=== PATIENT | female | born 1965 | race Caucasian/White ===

== ENCOUNTER 2019-12-24 11:30 | Outpatient (REF) | payer OTHER, SELFPAY | END 2019-12-24 11:31 | disposition home or self-care (01) | LOC: HO.LNP 11:30 | PROVIDERS: Visit Provider Nurse Practitioner Family | DX: Z20.828 Contact with and (suspected) exposure to other viral communicable diseases (principal) | CPT/HCPCS: C9803; U0003 ==

== ENCOUNTER 2020-01-07 03:39 | Inpatient (IN) | payer OTHER, SELFPAY ==
[2020-01-07] VITALS (10 sets, daily range): BP systolic 132–154; BP diastolic 73–81; PULSE 73–94; RESP 16–18; TEMP 36.8–37.5; O2SAT 96–100; BMI 20.9; BMI 22.3
--- NOTE | 2020-01-07 04:01 | ECG_ITS ---
Test Reason : CHEST PAIN Blood Pressure : / mmHG Vent. Rate : 094 BPM Atrial Rate : 094 BPM P-R Int : 154 ms QRS Dur : 066 ms QT Int : 346 ms P-R-T Axes : 060 079 050 degrees QTc Int : 432 ms Sinus rhythm with Premature supraventricular complexes Otherwise normal ECG When compared with ECG of 02-JUL-2018 06:03, Premature supraventricular complexes are now Present Referred By: Bethanie Stanley Electronically Signed By:ARDEN MCGREGOR MD
--- NOTE | 2020-01-07 04:19 | PC.NURSE ---
Pt coming in from home, CAOx4, speaking full sentences. 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 Pt reports a recent diagnosis of mold poisoning 1-2 weeks ago by an MD at a walkout clinic. Pt had been taking Amoxicillin but was recently changed to Doxycycline. Pt reports taking less than prescribed for the Doxycycline by accident. Pt returns to the ED tonight due to persistent symptoms of a DOWLING, confusion, palpitations and her innards spasming. Pt also reports kidney failure recently due to mold poisoning, states she was evaluated at a walk out clinic for her symptoms r/t kidney failure and mold poisoning. Pt denies sick contacts, states she has not been leaving her home. Pt most recently tested for Covid on 01/01 and was negative. O2 sat 98% RA, pt speaking full sentences, reporting SOB. Awaiting primary MD cedrick.
--- NOTE | 2020-01-07 04:21 | ED_ITS ---
HPI - Chest Pain General Chief Complaint: Chest Pain Stated Complaint: Multiple Complaints Time Seen by Provider: 01/07/20 04:21 Source: patient Mode of arrival: ambulatory Limitations: no limitations History of Present Illness HPI narrative: This is a 54-year-old female who presents today with persistent chest pain that is nonradiating but is associated with a productive cough of mucus like substance and she states has progressed to the point that now there is some blood streaking in the mucus. She is currently under the care of her primary care provider who has placed her on nystatin swish and swallow routine for oral thrush that she states has not really helped. Otherwise, she denies any fevers, chills, nausea, vomiting and denies any hematemesis or melena. She states that she used to be on poison this drugs that she has since stopped. Related Data Home Medications Medication Instructions Recorded Confirmed albuterol sulfate 90 mcg/actuation INHALATION 12/24/19 aerosol inhaler gozbbdnlwj-chnetivamgsun-tghcmtjz 1 cap PO TID 12/24/19 50 mg-325 mg-40 mg capsule fluticasone propionate 50 INTRANASAL 12/24/19 mcg/actuation nasal spray,suspension Previous Rx's Medication Instructions Recorded carisoprodol 350 mg tablet 350 mg PO TID PRN 30 Days #90 tab 12/17/19 doxycycline hyclate 100 mg capsule 100 mg PO BID 10 Days #20 cap 01/01/20 Allergies Allergy/AdvReac Type Severity Reaction Status Date / Time ceftriaxone [From ROCEPHIN] Allergy Unknown UNKNOWN Unverified 01/01/20 12:04 metoclopramide [Reglan] Allergy Unknown anaphylaxis Verified 01/01/20 12:04 tramadol [TRAMADOL] Allergy Unknown UNKNOWN, Unverified 01/01/20 12:04 seizure, seizure Review of Systems Review of Systems: Pertinent positives and negatives as stated in HPI and 10 point review systems is otherwise negative. [facility] Past Medical History Source: nursing notes reviewed Social History Social History Advance Directives: No Advance Directives Information Provided: No Physical Exam Vital Signs: Vital Signs: Last Vital Signs Temp 99.1 F 01/07/20 03:43 Pulse 84 01/07/20 05:57 Resp 16 01/07/20 05:57 BP 140/79 H 01/07/20 05:57 Pulse Ox 98 01/07/20 05:57 Body Mass Index 20.9 VITAL SIGNS: Reviewed. GENERAL: Well developed, well nourished, in no acute distress. 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 No adventitious sounds or accessory muscle use. SpO2<98> CARDIOVASCULAR: Regular rate and rhythm without noted murmurs, no JVD or lower extremity edema. ABDOMEN: Soft, non-tender, non-distended with bowel sounds. No rigidity. No guarding. No palpable masses or hernias noted MUSCULOSKELETAL: No tenderness, deformities, or effusions noted on gross inspection. EXTREMITIES: No cyanosis, clubbing or edema. SKIN: Inspection of the skin reveals no rashes, ulcerations, jaundice, pallor, or petechiae. NEUROLOGIC: Alert and oriented x 4. Strength and sensation to light touch were grossly intact x 4. Course Course Course Narrative: This is a 54-year-old female with history and clinical presentation concerning for possible pneumonia, bronchitis, mina esophagitis, and less likely PE/cardiac ischemia. 12/23: On review of primary care providers note from 12/23 there is mention the patient is currently undergoing evaluation by specialist in [place] for ruling out lupus and that patient stated that that time she had sustained a 40 lb weight loss since February with increasing night sweats and feeling weak. At this visit patient was started on nystatin, Augmentin and initial COVID-19 testing was completed at that time and was negative. 12/31: Visit note incomplete Reevaluation(s) Reevaluation #1: Suspect infection so will proceed with blood cultures, lactic acid, sepsis fluids, as well as empiric antibiotics. Time: 06:55 Reevaluation #2: Patient signed out to Dr Ness. Time: 07:16 MDM - Chest Pain Lab Data Result diagrams: 01/07/20 05:15 01/07/20 05:15 Labs: Lab Results 01/07/20 01/07/2020 Range/Units 05:15 05:15 05:15 WBC 14.2 H (4.8-10.8) X10*3/uL RBC 2.96 L (4.20-5.50) X10*6/uL Hgb 8.1 L (12.0-16.0) g/dl Hct 26.1 L (37-47) % MCV 88.2 (80-98) fL MCH 27.4 (27.0-33.0) pg MCHC 31.0 (31.0-35.0) g/dl RDW 12.4 (11.0-16.0) % Plt Count 588 H (160-400) X10*3/uL MPV 9.5 (9.4-12.3) fL Immature Gran % (Auto) 0.8 H (0.0-0.4) % Neut % (Auto) 75.5 H (45-73) % Lymph % (Auto) 9.9 L (20-40) % [place] % (Auto) 11.2 H (2-11) % Eos % (Auto) 2.3 (0-4) % Baso % (Auto) 0.3 (0-2) % Lymph # (Auto) 1.4 (1.2-4.9) X10*3/uL [place] # (Auto) 1.6 H (0.1-1.2) X10*3/uL Eos # (Auto) 0.3 (0.0-0.4) X10*3/uL Baso # (Auto) 0.0 (0.0-0.2) X10*3/uL Abs Immat Gran (auto) 0.11 H (0.00-0.03) X10*3/uL Absolute Neuts (auto) 10.7 H (2.0-8.3) X10*3/uL Absolute Nucleated RBC 0.000 (0.0-0.012) X10*3/uL Nucleated RBC % (auto) 0.0 (0.0-0.2) /100WBC Smear Tech's Comments VERIFIED D-Dimer NG/ML Sodium 136 (135-145) mmol/L Potassium 5.1 (3.3-5.1) mmol/l Chloride 107 (96-108) mmol/L Carbon Dioxide 17 L (22-29) mmol/L Anion Gap 17 (12-20) BUN 77 H (9-16) mg/dL Creatinine 5.32 H* (0.5-1.4) mg/dL Estim Creat Clear Calc 11.6 Estimated GFR 8 Random Glucose 107 (60-115) mg/dL Calcium 8.1 L (8.4-10.2) mg/dL Total Bilirubin 0.3 (0.0-1.0) mg/dL AST 19 (5-31) U/L ALT 19 (0-31) U/L Alkaline Phosphatase 194 H (39-117) U/L Troponin I High Sens 17.9 H (<3.5-17.0) ng/L Total Protein 6.8 (6.5-8.0) g/dL Albumin 3.0 L (3.5-5.0) g/dL Urine Color Urine Appearance Urine pH (5.0-8.0) Ur Specific [place] (1.005-1.025) Urine Protein (NEG-TRACE) MG/DL Urine Glucose (UA) (NEG) MG/DL Urine Ketones (NEG) MG/DL Urine Blood (NEG) Urine Nitrite (NEG) Ur Leukocyte Esterase (NEG) Urine RBC (0) /HPF Urine WBC (0-4) /HPF Ur Squamous Epith Cells /LPF Urine Bacteria /LPF Granular Casts /LPF Urine Mucus /LPF 01/07/20 01/07/20 Range/Units 05:15 05:15 WBC (4.8-10.8) X10*3/uL RBC (4.20-5.50) X10*6/uL Hgb (12.0-16.0) g/dl Hct (37-47) % MCV (80-98) fL MCH (27.0-33.0) pg MCHC (31.0-35.0) g/dl RDW (11.0-16.0) % Plt Count (160-400) X10*3/uL MPV (9.4-12.3) fL Immature Gran % (Auto) (0.0-0.4) % Neut % (Auto) (45-73) % Lymph % (Auto) (20-40) % [place] % (Auto) (2-11) % Eos % (Auto) (0-4) % Baso % (Auto) (0-2) % Lymph # (Auto) (1.2-4.9) X10*3/uL [place] # (Auto) (0.1-1.2) X10*3/uL Eos # (Auto) (0.0-0.4) X10*3/uL Baso # (Auto) (0.0-0.2) X10*3/uL Abs Immat Gran (auto) (0.00-0.03) X10*3/uL Absolute Neuts (auto) (2.0-8.3) X10*3/uL Absolute Nucleated RBC (0.0-0.012) X10*3/uL Nucleated RBC % (auto) (0.0-0.2) /100WBC Smear Tech's Comments D-Dimer 838 NG/ML Sodium (135-145) mmol/L Potassium (3.3-5.1) mmol/l Chloride (96-108) mmol/L Carbon Dioxide (22-29) mmol/L Anion Gap (12-20) BUN (9-16) mg/dL Creatinine (0.5-1.4) mg/dL Estim Creat Clear Calc Estimated GFR Random Glucose (60-115) mg/dL Calcium (8.4-10.2) mg/dL Total Bilirubin (0.0-1.0) mg/dL AST (5-31) U/L ALT (0-31) U/L Alkaline Phosphatase (39-117) U/L Troponin I High Sens (<3.5-17.0) ng/L Total Protein (6.5-8.0) g/dL Albumin (3.5-5.0) g/dL Urine Color STRAW Urine Appearance CLEAR Urine pH 5.5 (5.0-8.0) Ur Specific [place] 1.020 (1.005-1.025) Urine Protein 2+ H (NEG-TRACE) MG/DL Urine Glucose (UA) NEG (NEG) MG/DL Urine Ketones NEG (NEG) MG/DL Urine Blood 3+ H (NEG) Urine Nitrite NEG (NEG) Ur Leukocyte Esterase NEG (NEG) Urine RBC 50-75 H (0) /HPF Urine WBC 10-14 H (0-4) /HPF Ur Squamous Epith Cells 2+ /LPF Urine Bacteria 1+ /LPF Granular Casts 0-2 /LPF Urine Mucus 1+ /LPF ECG Data ECG #1: Attestation: I personally reviewed and interpreted this ECG as follows: Interpretation: Normal sinus rhythm, HR- 94, no evidence of acute ischemia, VT/QRS/ QTC are within normal limits. Discharge Plan Discharge Clinical Impression: YESSICA (acute kidney injury), Severe sepsis Anemia Qualifiers: Anemia type: unspecified type Qualified Code(s): D64.9 - Anemia, unspecified Prescriptions: No Action carisoprodol 350 mg tablet 350 mg PO TID PRN (Reason: muscle pain) 30 Days Qty: 90 RF: 0 doxycycline hyclate 100 mg capsule 100 mg PO BID 10 Days Qty: 20 RF: 0 jiwctkicgq-yektnhzlovkoc-zfsf 50-325-40 mg capsule 1 cap PO TID RF: 0 fluticasone propionate 50 mcg/actuation spray,suspension 1 spray intranasal BID RF: 0 albuterol sulfate 90 mcg/actuation HFA aerosol inhaler 2 puff inhalation Q6H PRN (Reason: Wheezing) RF: 0
--- NOTE | 2020-01-07 04:44 | XR_ITS ---
EXAMINATION: CHEST 1 VIEW CLINICAL INFORMATION: Chest pain. COMPARISON: 07/02/2018. TECHNIQUE: An AP view of the chest is provided. FINDINGS: The cardiac silhouette is not enlarged. The mediastinal and hilar contours are unremarkable. There are neither pleural effusions nor pneumothoraces. There are no consolidations. The osseous structures are stable. XR/XR chest 1V IMPRESSION: No evidence for acute disease.
--- NOTE | 2020-01-07 05:16 | PC.NURSE ---
Labs and UA obtained and sent. Pt ambulating to/from the bathroom with a davis/steady gait.
[2020-01-07 05:22] LABS: Basophils Percent Auto 0.3 % (0-2); Eosinophils Absolute Auto 0.3 X10*3/uL (0.0-0.4); Eosinophils Percent Auto 2.3 % (0-4); Hematocrit 26.1 % (37-47); Hemoglobin 8.1 g/dl (12.0-16.0); Imm Gran Abs Auto 0.11 X10*3/uL (0.00-0.03); Imm Gran Pct Auto 0.8 % (0.0-0.4); Lymphocytes Absolute Auto 1.4 X10*3/uL (1.2-4.9); Lymphocytes Percent Auto 9.9 % (20-40); MANUAL DIFF FLAG SCAN; Mean Corpuscular Hemoglobin 27.4 pg (27.0-33.0); Mean Corpuscular Volume 88.2 fL (80-98); Mean Platelet Volume 9.5 fL (9.4-12.3); Monocytes Absolute Auto 1.6 X10*3/uL (0.1-1.2); Monocytes Percent Auto 11.2 % (2-11); Neutrophils Absolute Auto 10.7 X10*3/uL (2.0-8.3); Neutrophils Percent Auto 75.5 % (45-73); Platelet Count 588 X10*3/uL (160-400); Red Blood Count 2.96 X10*6/uL (4.20-5.50); Red Cell Distribution Width 12.4 % (11.0-16.0); SCAN SMEAR FLAG 1; White Blood Count 14.2 X10*3/uL (4.8-10.8)
--- NOTE | 2020-01-07 05:30 | PC.NURSE ---
XRay at bedside.
[2020-01-07 05:32] LABS: Glucose Urine UA NEG (NEG); Leukocyte Esterase Urine NEG (NEG); Nitrite Urine NEG (NEG); PH 5.5 (5.0-8.0); Urine Blood 3+ (NEG); Urine Ketones NEG (NEG); Urine Protein 2+ MG/DL (NEG-TRACE)
[2020-01-07 05:33] LABS: Appearance Urine CLEAR; Color Urine STRAW
[2020-01-07 05:35] LABS: D Dimer 838 NG/ML
[2020-01-07 05:40] LABS: Bacteria Urine 1+ /LPF; Mucus Urine 1+ /LPF; RBC Urine 50-75 /HPF (0); Squamous Epithelial Cell Urine 2+ /LPF
[2020-01-07 05:41] LABS: Granular Casts Urine 0-2 /LPF
[2020-01-07 05:46] LABS: SLIDE REVIEW VERIFIED
[2020-01-07 05:59] LABS: Troponin-I High Sensitivity 17.9 ng/L (<3.5-17.0)
--- NOTE | 2020-01-07 06:02 | PC.NURSE ---
IV established, pt aware of plan for CT. VSS. Awaiting CT.
[2020-01-07 06:10] LABS: Alanine Aminotransferase 19 U/L (0-31); Alkaline Phosphatase 194 U/L (39-117); Anion Gap 17 (12-20); Aspartate Amino Transferase 19 U/L (5-31); Bilirubin Total 0.3 mg/dL (0.0-1.0); Blood Urea Nitrogen 77 mg/dL (9-16); Calcium 8.1 mg/dL (8.4-10.2); Carbon Dioxide 17 mmol/L (22-29); Chloride 107 mmol/L (96-108); Creatinine Clr Calc Pharmacy 11.6; Estimated Glomerular Filt Rate 8; Glucose Random 107 mg/dL (60-115); Potassium 5.1 mmol/l (3.3-5.1); Sodium 136 mmol/L (135-145); Total Protein 6.8 g/dL (6.5-8.0)
--- NOTE | 2020-01-07 06:14 | CT_ITS ---
EXAMINATION: CT CHEST, ABDOMEN AND PELVIS WITHOUT CONTRAST CLINICAL INFORMATION: Abdominal pain and chest pain. COMPARISON: 05/19/2017. TECHNIQUE: Contiguous axial thin section helical images of the chest, abdomen and pelvis were performed without oral or IV contrast. The data set was reformatted in the coronal and sagittal planes and reviewed on an independent workstation. DLP: 681 mGy-cm. FINDINGS: The heart is of normal size. There is no pericardial effusion. There is neither mediastinal, hilar nor axillary lymphadenopathy. There are no chest wall masses. Review of lung windows demonstrates that there are neither pleural effusions nor pneumothoraces. Within the anterior right upper lobe, there is a small focus of likely tree-in-bud opacification. Within the posterior basal segments bilaterally, there is moderately extensive subpleural cyst formation. Within the right upper lobe on image [id number], there is a 3 mm nodule. The liver is of normal size and attenuation without focal lesions nor intrahepatic biliary ductal dilation. A normal gallbladder is identified. There is no wall thickening or discernible pericholecystic fluid. The spleen, pancreas, adrenal glands are unremarkable. Both kidneys are of normal size and attenuation without hydronephrosis or nephrolithiasis. There is no abdominal free fluid. There is neither mesenteric nor retroperitoneal lymphadenopathy. Normal unopacified loops of small and large bowel are identified. An appendicolith is present within the appendix without evidence of appendicitis.. There is no pelvic free fluid. The urinary bladder is unremarkable. There is neither pelvic nor inguinal lymphadenopathy. Bone windows: Neither sclerotic nor lytic bone lesions are identified. Intervertebral disc spacers are present at L4/L5 and L5/S1. CT/CT chest wo con IMPRESSION: No acute abdominal or pelvic inflammatory or infectious processes. Small focus of tree-in-bud opacification within the anterior aspect of the right upper lobe. This is nonspecific, though could correspond to atypical infection. Subpleural cyst formation within the posterior basal segment of the lower lobes bilaterally. This could be apprenticeship representative of early manifestations of interstitial lung disease. Automated exposure control (Care Dose) Adjustment of the mA and/or kv according to patient size (this includes techniques or standardized protocols for targeted exams where dose is matched to indication / reason for exam; i.e. extremities or head).
--- NOTE | 2020-01-07 06:14 | CT_ITS ---
EXAMINATION: CT CHEST, ABDOMEN AND PELVIS WITHOUT CONTRAST CLINICAL INFORMATION: Abdominal pain and chest pain. COMPARISON: 05/19/2017. TECHNIQUE: Contiguous axial thin section helical images of the chest, abdomen and pelvis were performed without oral or IV contrast. The data set was reformatted in the coronal and sagittal planes and reviewed on an independent workstation. DLP: 681 mGy-cm. FINDINGS: The heart is of normal size. There is no pericardial effusion. There is neither mediastinal, hilar nor axillary lymphadenopathy. There are no chest wall masses. Review of lung windows demonstrates that there are neither pleural effusions nor pneumothoraces. Within the anterior right upper lobe, there is a small focus of likely tree-in-bud opacification. Within the posterior basal segments bilaterally, there is moderately extensive subpleural cyst formation. Within the right upper lobe on image 212/581, there is a 3 mm nodule. The liver is of normal size and attenuation without focal lesions nor intrahepatic biliary ductal dilation. A normal gallbladder is identified. There is no wall thickening or discernible pericholecystic fluid. The spleen, pancreas, adrenal glands are unremarkable. Both kidneys are of normal size and attenuation without hydronephrosis or nephrolithiasis. There is no abdominal free fluid. There is neither mesenteric nor retroperitoneal lymphadenopathy. Normal unopacified loops of small and large bowel are identified. An appendicolith is present within the appendix without evidence of appendicitis.. There is no pelvic free fluid. The urinary bladder is unremarkable. There is neither pelvic nor inguinal lymphadenopathy. Bone windows: Neither sclerotic nor lytic bone lesions are identified. Intervertebral disc spacers are present at L4/L5 and L5/S1. CT/CT abdomen pelvis wo con IMPRESSION: No acute abdominal or pelvic inflammatory or infectious processes. Small focus of tree-in-bud opacification within the anterior aspect of the right upper lobe. This is nonspecific, though could correspond to atypical infection. Subpleural cyst formation within the posterior basal segment of the lower lobes bilaterally. This could be safety representative of early manifestations of interstitial lung disease. Automated exposure control (Care Dose) Adjustment of the mA and/or kv according to patient size (this includes techniques or standardized protocols for targeted exams where dose is matched to indication / reason for exam; i.e. extremities or head).
--- NOTE | 2020-01-07 06:35 | PC.NURSE ---
Pt ambulating to and from CT with a davis/steady gait. Awaiting results.
--- NOTE | 2020-01-07 06:57 | NM_ITS ---
EXAMINATION: PULMONARY PERFUSION STUDY CLINICAL INFORMATION: Cough, chest pain, evaluate for pulmonary embolism. COMPARISON: A radiograph of the chest dated 01/07/2020, the same date as this lung scan is available for comparison. 01/07/2020 CT scan of the chest is also available for comparison. TECHNIQUE: Following the intravenous injection of 4.0 mCi Tc-99m MAA, an 8-view perfusion study was performed using a gamma scintillation camera. FINDINGS: No segmental perfusion defects are present. There is homogeneous distribution of activity bilaterally. There are no focal anatomic appearing perfusion defects present. NM/NM pul perfusion IMPRESSION: Normal radionuclide lung perfusion scan.
[2020-01-07 07:19] LABS: Lactic Acid 0.5 mmol/L (0.5-2.0)
[2020-01-07] MEDS: levoFLOXacin/D5W 750 MG/150 ML PIGGYBACK 100 MG IV (07:24)
[2020-01-07] MEDS: 0.9 % Sodium Chloride 1,860 ML 999 ML IV (07:24)
[2020-01-07] MEDS: 0.9 % Sodium Chloride 1,000 ML 1000 ML IV (07:25)
--- NOTE | 2020-01-07 07:54 | PC.NURSE ---
Dr Ness and this RN to bedside for update on plan of care. Pt will have Lung scan pending COVID results. Plan for indwelling catheter for I&O monitoring. Fluids continue to infuse.
--- NOTE | 2020-01-07 08:27 | PC.NURSE ---
Indwelling catheter placed. Additional blood work at this time.
[2020-01-07 08:43] LABS: Influenza A PCR NEGATIVE (Negative); Influenza B PCR NEGATIVE (Negative); Resp Syncy Virus RNA Qual PCR NEGATIVE (Negative); SARS COV2 PCR INHOUSE NEGATIVE (Negative)
[2020-01-07 09:25] LABS: Creatinine Urine 57.03 mg/dL; Total Protein Urine Random 131 mg/dL (<12)
[2020-01-07 09:31] LABS: Troponin-I High Sensitivity 17.8 ng/L (<3.5-17.0)
[2020-01-07 09:49] LABS: HIV AB/AG Nonreactive (Nonreactive); HIV Num 1 0.07 S/CO (0.00-0.99)
[2020-01-07 09:53] LABS: HBc Num1 0.12 S/CO (0.00-0.79); HBsAGNum1 0.16 S/CO (0.00-0.99); Hepatitis B Core Antibody Nonreactive (Nonreactive); Hepatitis B Surface Antigen Negative (Negative); ~HepC Num1 0.15 S/CO (0.00-0.79); ~Hepatitis B Surface Antibody NONREACTIVE (Nonreactive); ~Hepatitis C Antibody Nonreactive (Nonreactive)
--- NOTE | 2020-01-07 10:51 | PM.IMHP ---
History of Present Illness Date of Service: 01/07/20 <Renetta Gomez NP - Last Filed: 01/07/20 12:16> Chief Complaint: Cough <Renetta Gomez NP - Last Filed: 01/07/20 12:16> 54 year old women presenting with cough and clear sputum. She reported over the last year she has lived in a trailer that was found to have black mold. She has had respiratory issues off and on over the last year.She reported some heart palpitations with no chest pain. She denied fever, chills, nausea, vomiting, diarrhea. She did report having some night sweats. She has been taking Ibuprofen 4-6 tabs daily over the last 6-8 weeks for chronic back pain. She also mentioned that about 10 days ago she did not urinate for at least 18 hours. Her creatinine was noted to be elevated at 5.32, calcium 8.1, troponin 17.8, 17.9 with no chest pain although she did mention she had some palpitations. She was given Levaquin, IV fluids. She will be admitted for further management an treatment of YESSICA, UTI and CAP. <Renetta Gomez NP - Last Filed: 01/07/20 12:16> Review of Systems Review of Systems: Denies any recent fever chills or decrease in appetite respiratory See HPI See HPI gastrointestinal denies any dysphagia abdominal pain nausea vomiting or diarrhea genitourinary See HPI musculoskeletal Chronic back pain neuropsych denies any weakness or seizures all other systems reviewed are negative <Renetta Gomez NP - Last Filed: 01/07/20 12:16> COUNTS INCLUDE 234 BEDS AT THE [facility] Medical History: Medical History (Updated 01/24/20 @ 00:00 by Paty Osorio) YESSICA (acute kidney injury) Back pain COVID-19 Fibromyalgia 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) Pulmonary fibrosis Viral pneumonia <Renetta Gomez NP - Last Filed: 01/07/20 12:16> Family History: Family History Father CAD (coronary artery disease) Asbestosis Mother Hypothyroidism <Renetta Gomez NP - Last Filed: 01/07/20 12:16> Surgical History: Surgical History H/O exploratory laparotomy H/O: hysterectomy History of back surgery <Renetta Gomez NP - Last Filed: 01/07/20 12:16> Social History: Social History Household Members: Family Housing: House Smoking Status: Never smoker service: No Current occupational status: unemployed <Renetta Gomez NP - Last Filed: 01/07/20 12:16> Meds Allergies/Adverse reactions: Allergies Allergy/AdvReac Type Severity Reaction Status Date / Time metoclopramide [Reglan] Allergy Unknown anaphylaxis Verified 01/01/20 12:04 tramadol [TRAMADOL] Allergy Unknown UNKNOWN, Verified 01/07/20 18:35 seizure, seizure <Renetta Gomez NP - Last Filed: 01/07/20 12:16> Physical Exam Vital Signs and Narrative: Vital Signs: Last Vital Signs Temp 99.1 F 01/07/20 03:43 Pulse 78 01/07/20 09:41 Resp 16 01/07/20 09:41 BP 147/74 H 01/07/20 09:41 Pulse Ox 96 01/07/20 09:41 Body Mass Index 20.9 <Renetta Gomez NP - Last Filed: 01/07/20 12:16> Appearing in no acute distress head is normocephalic atraumatic eyes pupils are PERRLA sclera is anicteric mouth throat mucous membranes are intact and moist neck is supple no lymphadenopathy, no JVD noted lung normal expansion heart regular rate rhythm Soft abdomen neuro patient is alert x3, no focal deficits <Renetta Gomez NP - Last Filed: 01/07/20 12:16> Results Labs CBC and Chem 7: : 01/16/20 05:53 01/16/20 05:53 <Renetta Gomez NP - Last Filed: 01/07/20 12:16> Labs: Laboratory Results - last 24 hr 01/07/20 01/07/20 01/07/20 05:15 05:15 05:15 MCV 88.2 MCH 27.4 MCHC 31.0 RDW 12.4 Plt Count 588 H MPV 9.5 Immature Gran % (Auto) 0.8 H Neut % (Auto) 75.5 H Lymph % (Auto) 9.9 L [place] % (Auto) 11.2 H Eos % (Auto) 2.3 Baso % (Auto) 0.3 Lymph # (Auto) 1.4 [place] # (Auto) 1.6 H Eos # (Auto) 0.3 Baso # (Auto) 0.0 Abs Immat Gran (auto) 0.11 H Absolute Neuts (auto) 10.7 H Absolute Nucleated RBC 0.000 Nucleated RBC % (auto) 0.0 Smear Tech's Comments VERIFIED D-Dimer Anion Gap 17 Estim Creat Clear Calc 11.6 Estimated GFR 8 Random Glucose 107 Lactic Acid Calcium 8.1 L Total Bilirubin 0.3 AST 19 ALT 19 Alkaline Phosphatase 194 H Total Creatine Kinase 23 L Troponin I High Sens 17.9 H Total Protein 6.8 Albumin 3.0 L Urine Color Urine Appearance Urine pH Ur Specific [place] Urine Protein Urine Glucose (UA) Urine Ketones Urine Blood Urine Nitrite Ur Leukocyte Esterase Urine RBC Urine WBC Ur Squamous Epith Cells Urine Bacteria Granular Casts Urine Mucus U Random Total Protein Urine Creatinine Coronavirus (PCR) Hep Bs Antigen Hep Bs Antibody Hep B Core Total Ab Hepatitis C Ab (EIA) HIV 1&2 Ab/P24 Ag 4thGn Influenza Type A (PCR) Influenza Type B (PCR) RSV RNA Qual (PCR) Blood Type Antibody Screen 01/07/20 01/07/20 01/07/20 05:15 05:15 06:54 MCV MCH MCHC RDW Plt Count MPV Immature Gran % (Auto) Neut % (Auto) Lymph % (Auto) [place] % (Auto) Eos % (Auto) Baso % (Auto) Lymph # (Auto) [place] # (Auto) Eos # (Auto) Baso # (Auto) Abs Immat Gran (auto) Absolute Neuts (auto) Absolute Nucleated RBC Nucleated RBC % (auto) Smear Tech's Comments D-Dimer 838 Anion Gap Estim Creat Clear Calc Estimated GFR Random Glucose Lactic Acid 0.5 Calcium Total Bilirubin AST ALT Alkaline Phosphatase Total Creatine Kinase Troponin I High Sens Total Protein Albumin Urine Color STRAW Urine Appearance CLEAR Urine pH 5.5 Ur Specific [place] 1.020 Urine Protein 2+ H Urine Glucose (UA) NEG Urine Ketones NEG Urine Blood 3+ H Urine Nitrite NEG Ur Leukocyte Esterase NEG Urine RBC 50-75 H Urine WBC 10-14 H Ur Squamous Epith Cells 2+ Urine Bacteria 1+ Granular Casts 0-2 Urine Mucus 1+ U Random Total Protein Urine Creatinine Coronavirus (PCR) Hep Bs Antigen Hep Bs Antibody Hep B Core Total Ab Hepatitis C Ab (EIA) HIV 1&2 Ab/P24 Ag 4thGn Influenza Type A (PCR) Influenza Type B (PCR) RSV RNA Qual (PCR) Blood Type Antibody Screen 01/07/20 01/07/20 01/07/20 07:56 08:33 08:33 MCV MCH MCHC RDW Plt Count MPV Immature Gran % (Auto) Neut % (Auto) Lymph % (Auto) [place] % (Auto) Eos % (Auto) Baso % (Auto) Lymph # (Auto) [place] # (Auto) Eos # (Auto) Baso # (Auto) Abs Immat Gran (auto) Absolute Neuts (auto) Absolute Nucleated RBC Nucleated RBC % (auto) Smear Tech's Comments D-Dimer Anion Gap Estim Creat Clear Calc Estimated GFR Random Glucose Lactic Acid Calcium Total Bilirubin AST ALT Alkaline Phosphatase Total Creatine Kinase Troponin I High Sens 17.8 H Total Protein Albumin Urine Color Urine Appearance Urine pH Ur Specific [place] Urine Protein Urine Glucose (UA) Urine Ketones Urine Blood Urine Nitrite Ur Leukocyte Esterase Urine RBC Urine WBC Ur Squamous Epith Cells Urine Bacteria Granular Casts Urine Mucus U Random Total Protein Urine Creatinine Coronavirus (PCR) NEGATIVE Hep Bs Antigen Negative Hep Bs Antibody NONREACTIVE Hep B Core Total Ab Nonreactive Hepatitis C Ab (EIA) Nonreactive HIV 1&2 Ab/P24 Ag 4thGn Nonreactive Influenza Type A (PCR) NEGATIVE Influenza Type B (PCR) NEGATIVE RSV RNA Qual (PCR) NEGATIVE Blood Type Antibody Screen 01/07/20 01/07/20 08:33 08:49 MCV MCH MCHC RDW Plt Count MPV Immature Gran % (Auto) Neut % (Auto) Lymph % (Auto) [place] % (Auto) Eos % (Auto) Baso % (Auto) Lymph # (Auto) [place] # (Auto) Eos # (Auto) Baso # (Auto) Abs Immat Gran (auto) Absolute Neuts (auto) Absolute Nucleated RBC Nucleated RBC % (auto) Smear Tech's Comments D-Dimer Anion Gap Estim Creat Clear Calc Estimated GFR Random Glucose Lactic Acid Calcium Total Bilirubin AST ALT Alkaline Phosphatase Total Creatine Kinase Troponin I High Sens Total Protein Albumin Urine Color Urine Appearance Urine pH Ur Specific [place] Urine Protein Urine Glucose (UA) Urine Ketones Urine Blood Urine Nitrite Ur Leukocyte Esterase Urine RBC Urine WBC Ur Squamous Epith Cells Urine Bacteria Granular Casts Urine Mucus U Random Total Protein 131 H Urine Creatinine 57.03 Coronavirus (PCR) Hep Bs Antigen Hep Bs Antibody Hep B Core Total Ab Hepatitis C Ab (EIA) HIV 1&2 Ab/P24 Ag 4thGn Influenza Type A (PCR) Influenza Type B (PCR) RSV RNA Qual (PCR) Blood Type A Positive Antibody Screen NEGATIVE <Renetta Gomez NP - Last Filed: 01/07/20 12:16> Imaging Radiologist's Impressions: Impressions Chest X-Ray 01/07/20 04:44 IMPRESSION: No evidence for acute disease. Abdomen/Pelvis CT 01/07/20 06:14 IMPRESSION: No acute abdominal or pelvic inflammatory or infectious processes. Small focus of tree-in-bud opacification within the anterior aspect of the right upper lobe. This is nonspecific, though could correspond to atypical infection. Subpleural cyst formation within the posterior basal segment of the lower lobes bilaterally. This could be phone representative of early manifestations of interstitial lung disease. Automated exposure control (Care Dose) Adjustment of the mA and/or kv according to patient size (this includes techniques or standardized protocols for targeted exams where dose is matched to indication / reason for exam; i.e. extremities or head). Chest CT 01/07/20 06:14 IMPRESSION: No acute abdominal or pelvic inflammatory or infectious processes. Small focus of tree-in-bud opacification within the anterior aspect of the right upper lobe. This is nonspecific, though could correspond to atypical infection. Subpleural cyst formation within the posterior basal segment of the lower lobes bilaterally. This could be phone representative of early manifestations of interstitial lung disease. Automated exposure control (Care Dose) Adjustment of the mA and/or kv according to patient size (this includes techniques or standardized protocols for targeted exams where dose is matched to indication / reason for exam; i.e. extremities or head). <Renetta Gomez, NOVELTY DIPPER - Last Filed: 01/07/20 12:16> Assessment and Plan (1) YESSICA (acute kidney injury): Status: Acute <Renetta Gomez NP - Last Filed: 01/07/20 12:16> 54 year old women admitted with YESSICA, UTI and CAP. She was recently treated with doxycycline for Upper respiratory infection. Sepsis secondary to CAP. Tachycardia, leukocytosis. Rocephin, azithromycin. Robittusin as needed for cough. Will also consult pulmonology as she has had such frequent infections. YESSICA. Possibly related to NSAID use. Nephrology to follow. UTI. Rocephin, follow urine culture. Normocytic anemia. No signs of bleeding. Likely related to YESSICA. Follow closely. Chronic pain. Continue home medication. DVT prophylaxis with Mechanical compression boots. Discussed with Dr. Marcum Full code <Renetta Gomez NP - Last Filed: 01/07/20 12:16>
--- NOTE | 2020-01-07 11:23 | PC.NURSE ---
nicolette gold examining patient. this rn preparing patient for nuc med procedure. pt resting quietyl, unlabored resp. nsr on monitor. skin pwd. ls cta. no pitting edema. aware of plan of care.
--- NOTE | 2020-01-07 12:27 | PM.CNNEP ---
History of Present Illness Reason for Consult Consult date: 01/07/20 Reason for consult: YESSICA Chief Complaint Chief complaint: Multiple Complaints History of Present Illness Narrative: Asked to see this 54-year-old white female with acute kidney injury as reffected by serum creatinine 5.3 In the setting of heavy NSAID use. She has a complicated med history with fibromyalgia and recurrentRespiratory illnesses.She's been seen by (Pulm doc at [facility] ) for evaluation of recurrent respiratory illnesses. Records indicate that she has had at least six episodes of what's described as bronchitis type presentation with cough and dyspnea and wheezing. Tx with antibiotics and prednisone and the symptoms seem to resolve.As part of her evaluation for this she had sero including EREN 1280 and anti La pos and concern that she may have underlying called Collagen Vasc Dz with pulmonary involvement. She had a's CAT scan done January 2019 described by the pulmonologit as having ground glass opacities. Seen by Rheum and felt to have fibromyalgia. Reviewing Records from [facility] she had labs done in year but showed hemoglobin of 12.5 ESR 45. EREN 1280; Anti-la was positive 2.2 Titer.Labs from June 2019 showed Scr 0.7 And there's a urine analysis from January 2019 with one plus protein. With htis background med issue she has been feelin sick for the past 1-2 weeks and was seen in urgent carre and started on ABX for ques of ques URT infection. .SHe c/o gen MSK migratory pains and decr UOP. She startedtaking ibuprofen every 4-6 hours. Poor UOP past 1 week and per PT no UOP fro past 18 hours. No fever/swets or chills. Cont w on/off prod cough and has been blood tinged recently that she attributes to thrush. No h/o of kidney probs. No UTI or kidney stones; No FHx kidney probs] [facility] Past Medical History Medical History (Updated 01/07/20 @ 11:21 by Renetta Gomez NP) Back pain Fibromyalgia Family History Family History (Updated 01/07/20 @ 11:24 by Renetta Gomez NP) Father CAD (coronary artery disease) Asbestosis Mother Hypothyroidism Surgical History Surgical History (Updated 01/07/20 @ 11:21 by Renetta Gomez NP) H/O exploratory laparotomy H/O: hysterectomy History of back surgery Social History Social History Smoking Status: Former smoker Use of substances other than those prescribed or required for medical reasons: No Advance Directives: No Advance Directives Information Provided: No Meds Allergies Allergy/AdvReac Type Severity Reaction Status Date / Time ceftriaxone [From ROCEPHIN] Allergy Unknown UNKNOWN Unverified 01/01/20 12:04 metoclopramide [Reglan] Allergy Unknown anaphylaxis Verified 01/01/20 12:04 tramadol [TRAMADOL] Allergy Unknown UNKNOWN, Unverified 01/01/20 12:04 seizure, seizure Home Medications Medication Instructions Recorded Confirmed Type albuterol sulfate 90 mcg/actuation 2 puff INHALATION Q6H PRN 12/24/19 01/07/20 History aerosol inhaler urfhuztehm-qcmhxhdikrsyp-gywfxcul 1 cap PO TID 12/24/19 01/07/20 History 50 mg-325 mg-40 mg capsule fluticasone propionate 50 1 spray INTRANASAL BID 12/24/19 01/07/20 History mcg/actuation nasal spray,suspension Physical Exam Vital Signs: Last Vital Signs Temp 99.5 F 01/07/20 11:20 Pulse 93 01/07/20 11:20 Resp 16 01/07/20 11:20 BP 152/80 H 01/07/20 11:20 Pulse Ox 99 01/07/20 11:20 Body Mass Index 20.9 Appearing in no acute distress head is normocephalic atraumatic eyes pupils are PERRLA sclera is anicteric mouth throat mucous membranes are intact and moist neck is supple no lymphadenopathy, no JVD noted lung normal expansion heart regular rate rhythm Soft abdomen neuro patient is alert x3, no focal deficits Results Lab Results Result Diagrams: 01/07/20 05:15 01/07/20 05:15 Lab results: Chemistry 01/07/20 05:15 Sodium 136 Potassium 5.1 Carbon Dioxide 17 L BUN 77 H Creatinine 5.32 H* Calcium 8.1 L Hematology 01/07/20 05:15 WBC 14.2 H Hgb 8.1 L Plt Count 588 H Urinalysis 01/07/20 05:15 Urine Color STRAW Urine Appearance CLEAR Urine pH 5.5 Ur Specific [place] 1.020 Urine Protein 2+ H Urine Glucose (UA) NEG Urine Ketones NEG Urine Blood 3+ H Urine Nitrite NEG Ur Leukocyte Esterase NEG Urine RBC 50-75 H Urine WBC 10-14 H Ur Squamous Epith Cells 2+ Urine Studies 01/07/20 08:49 Urine Creatinine 57.03 Assessment and Plan (1) YESSICA (acute kidney injury): Status: Acute 54 year old white female admitted to hospital with acute kidney injury on the backdrop of recent upper respiratory tract infection and question of underlined college vasc disease along with heavy NSAID use for the past several weeks 1. YESSICA: wide DDX including NSAID can effect the kidneys in several ways including: AIN, renal hypoperfusion and on rare occassions cause minimal change disease AIN from NSAIDs AGN: d/t underlying cvollavgen vasc disesase ( eg SLE) or vasculitis ( ANCA assoc, anti GBM) the latter are very concerning given her ongoing pulm issues ATN: multifact pre-renal: d/t dehydration and NSAIDs can contribute to renal hypoperfusion Acute Obs : r/o by CT w/o hydro TMA: very unlikely given PLT are not decreased 2. Anemia 3. Ques CVDz with high EREN and chronic MSK aches and pul disease 4. MSK pains: fibromayalgia and ques additional CVDz 5. Pulm: recurrent resp illness and abnl CT of chest REC: proceed with comprehensive sero w/u and urine studies; IVF and monitor UOP; obtain pulm consutl re abnl chest CT; may need kideny Bx depending on response to IVF and sero tests; avoid NSAIDs; anemia w/u will follow closely with med team Procedures Abscess I/D Date of Service: 01/07/20
--- NOTE | 2020-01-07 13:17 | P.EN_ITS ---
Event Note Date of Service: 01/08/20 Event Note: Patient says that she is having cough and shortness of breath-on and off from 1 year duration, she was following up with Pulmonary in [facility]: Unclear ?also got up doxycycline recently for question of URI: Recently she was told to lupus lupus workup in [place] : She could not go there she said her got COVID and she got scared to go, she was in the trailer for 6 weeks and she said her appetite was poor and she was becoming lethargic and she did not urinate well from last 24 hours and then end up in the hospital In the hospital she was found to have YESSICA when compared to the last year her creatinine is 5 , last year was normal. She has some subjective sense of fever but otherwise denies any new complaints. She said she had some abdominal discomfort before coming to the hospital but now she does not have any pain. She still has cough and some whitish sputum as per the patient which is at the baseline as per patient. Denies any chest pain. Lab, ekg, imaging reviewed: Drops probably elevated secondary to YESSICA, flat now. Chest CT shows question of pneumonia UA abnormal Perfusion scan negative Patient was given Levaquin and IV fluid in the ED and requested for admission. Physical exam: Cvs: rrr, [id number] , no murmur res: clear to auscultation ,no rhonchii or wheezing abd: no rebound or guarding ,nt, bs present. ext pulses present , no cyanosis neuro: axo3 , nonfocal. Assessment and plan coordinated in APCs note: sepsis sec tp pneumonia, ? uti Continue IV fluid Continue and IV antibiotics Monitor renal function and electrolytes closely Will add Nephro and id evaluation.
--- NOTE | 2020-01-07 14:29 | PC.NURSE ---
floor called for report. awaiting return report. room being cleaned.
--- NOTE | 2020-01-07 15:25 | PC.NURSE ---
no change in assessment. c/o lower back soreness. cathremains in palce and draining. awaiting transfer to floor. unlabored resp.
[2020-01-07] MEDS: 0.9 % Sodium Chloride Flush 3 ML SYRINGE IVFLUSH (16:48)
[2020-01-07] MEDS: Lactated Ringers 500 ML 100 ML IV (16:49)
[2020-01-07] MEDS: cefTRIAXone sodium 1 GM in 0.9 % Sodium Chloride 50 ML IV (17:07)
[2020-01-07] MEDS: Azithromycin 500 MG in 0.9 % Sodium Chloride 250 ML 125 MG IV (17:15)
[2020-01-07 18:01] LABS: Rheumatoid Factor < 15.0 IU/mL (<15.0)
[2020-01-07] MEDS: carisoprodoL 350 MG TABLET PO (18:24)
[2020-01-07 20:01] LABS: Anion Gap 16 (12-20); Blood Urea Nitrogen 71 mg/dL (9-16); Calcium 7.8 mg/dL (8.4-10.2); Carbon Dioxide 16 mmol/L (22-29); Chloride 110 mmol/L (96-108); Creatinine Clr Calc Pharmacy 13.8; Estimated Glomerular Filt Rate 10; Glucose Random 108 mg/dL (60-115); Potassium 4.4 mmol/l (3.3-5.1); Sodium 138 mmol/L (135-145)
[2020-01-07] MEDS: Flu Vacc QS2020-21(6mos up)/PF 0.5 ML SYRINGE IM (20:35)
[2020-01-08] MEDS: carisoprodoL 350 MG TABLET PO ×3 (02:30→20:19)
[2020-01-08 03:11] VITALS: BP 103/80; PULSE 84; RESP 18; TEMP 36.3; O2SAT 98
[2020-01-08 04:35] LABS: HBc Num1 0.41 S/CO (0.00-0.79); Hepatitis B Core Antibody Nonreactive (Nonreactive); ~Hepatitis B Surface Antibody NONREACTIVE (Nonreactive); ~Hepatitis C Antibody Nonreactive (Nonreactive)
[2020-01-08] MEDS: cefTRIAXone sodium 1 GM in 0.9 % Sodium Chloride 50 ML IV (04:51)
[2020-01-08 05:37] LABS: HBsAGNum1 2.74 S/CO (0.00-0.99); HBsAGNum2 Nonreactive; HBsAGNum3 Nonreactive; Hepatitis B Surface Antigen NEGATIVE (Negative)
[2020-01-08 06:36] LABS: MANUAL DIFF FLAG NO
[2020-01-08 07:01] LABS: Basophils Percent Auto 0.4 % (0-2); Eosinophils Absolute Auto 0.2 X10*3/uL (0.0-0.4); Eosinophils Percent Auto 1.7 % (0-4); Hemoglobin 7.5 g/dl (12.0-16.0); Imm Gran Abs Auto 0.09 X10*3/uL (0.00-0.03); Imm Gran Pct Auto 0.8 % (0.0-0.4); Lymphocytes Absolute Auto 1.3 X10*3/uL (1.2-4.9); Lymphocytes Percent Auto 11.1 % (20-40); Mean Corpuscular HGB Conc 31.3 g/dl (31.0-35.0); Mean Corpuscular Hemoglobin 27.1 pg (27.0-33.0); Mean Corpuscular Volume 86.6 fL (80-98); Mean Platelet Volume 10.1 fL (9.4-12.3); Monocytes Absolute Auto 1.1 X10*3/uL (0.1-1.2); Monocytes Percent Auto 9.4 % (2-11); Neutrophils Absolute Auto 8.7 X10*3/uL (2.0-8.3); Neutrophils Percent Auto 76.6 % (45-73); Platelet Count 502 X10*3/uL (160-400); Red Blood Count 2.77 X10*6/uL (4.20-5.50); Red Cell Distribution Width 12.4 % (11.0-16.0); White Blood Count 11.3 X10*3/uL (4.8-10.8)
[2020-01-08 07:18] LABS: Anion Gap 14 (12-20); Blood Urea Nitrogen 66 mg/dL (9-16); Calcium 8.1 mg/dL (8.4-10.2); Carbon Dioxide 18 mmol/L (22-29); Chloride 111 mmol/L (96-108); Creatinine Clr Calc Pharmacy 14.2; Estimated Glomerular Filt Rate 10; Glucose Random 95 mg/dL (60-115); Potassium 5.2 mmol/l (3.3-5.1); Sodium 138 mmol/L (135-145)
[2020-01-08 07:37] LABS: Hepatitis B Surface Antigen Negative (Negative)
[2020-01-08 07:43] VITALS: BP 152/72; PULSE 76; RESP 18; TEMP 36.8; O2SAT 100
[2020-01-08] MEDS: 0.9 % Sodium Chloride Flush 3 ML SYRINGE IVFLUSH (08:04)
--- NOTE | 2020-01-08 08:33 | P.CDIC_ITS ---
CDI Concurrent Query Service Date: 01/08/20 Documentation Clarification: Please clarify if you are treating a proba ble/suspected/likely or confirmed: Sepsis due to UTI - POA, resolved, Txt, Rule out Please specify if known- sepsis probbale pneuminia /UTI Provider Response: Other Other Diagnosis: Sepsis secondary to pneumonia, uti PLEASE DO NOT DELETE/MODIFY EXISTING CONTENT Additional information is needed in order to code to the highest accuracy and appropriate Severity of Illness (SOI). Please clarify the information noted below in your progress notes and discharge summary. Risk Factors/Clinical Indicators/Treatments Ed: YESSICA, UTI, CAP H&P: 01/06 - Assessment/plan: Sepsis secondary to CAP, tachycardic, leukocytosis POA Evaluation - Problem list Severe sepsis PN: 01/06 -YESSICA, some subjective fevers, IV Fluids, IV antibiotics WBC 14.2 Temp 99.1 HR 78 RR 16 LA 0.5 CDS: Alyssia Rosas CCS, CDIS Contact Number: [phone] Please Review the information above and exercise your independent professional judgment in responding to the query. If you concur, pleas document in the PROGRESS NOTES and DISCHARGE SUMMARY. If you do not agree with the query, please document in the query above. THIS QUERY IS PART OF THE PERMANENT MEDICAL RECORD
--- NOTE | 2020-01-08 09:45 | MHC.CM.PN ---
roxy pl,an home no sercveis pt is independent and has own trnapsortaion home
[2020-01-08 09:46] LABS: Immature Retic Fraction 4.7 % (3.0-15.9); Retic HGB Equivalent 28.9 pg (30.0-35.0); Reticulocyte Percent 0.8 % (0.5-1.8); Reticulocytes Absolute 0.022 X10*6/uL (0.026-0.095)
[2020-01-08 09:55] LABS: Iron 28 mcg/dL (30-160); Lactate Dehydrogenase 139 U/L (122-220); Percent Iron Saturation 20 % (15-50); Total Iron Binding Capacity 139 mcg/dL (228-428); Unsaturated Iron Binding 111 ug/dL
[2020-01-08 11:13] VITALS: BP 136/77; PULSE 76; RESP 18; TEMP 36.9; O2SAT 98
[2020-01-08 12:14] LABS: Ferritin 346 ng/mL (10-250)
[2020-01-08] MEDS: Lactated Ringers 1,000 ML 100 ML IVCONT (12:25)
[2020-01-08 12:31] LABS: Folate 6.7 ng/mL (> or = 4.0); Vitamin B12 312 pg/mL (200-900)
[2020-01-08 12:39] LABS: Hematocrit 24.1 % (37-47); Hemoglobin 7.5 g/dl (12.0-16.0)
[2020-01-08 13:11] LABS: Complement C3 83 mg/dL (83-193); Myeloperoxidase Antibody 2.2 AI; Proteinase 3 PR3 Antibodies <1.0 AI
--- NOTE | 2020-01-08 13:16 | W.PM.IDCN ---
History of Present Illness Data of Consult Service Date: 01/08/20 Requesting physician: Jodie Marcum Primary Care Provider: Angel Vidal MD HPI Reason for consult: fatigue She presents to ER with cough and clear productive sputum,better than last month with white sputum She has fatigue and weakness She has no fever or chills COVID is negative. 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 CT scan here no lobar infiltrate,chronic honeycombing and tree in bud appearance Blood cultures and urine cultures negative Creatinine is significantly elevated Review of Systems Review of Systems: Yes all other systems are reviewed and are negative Constitutional: Constitutional: Reports fatigue and Reports lethargy Endocrine: Endocrine: Reports fatigue PMFSH Past Medical History Medical History Back pain Fibromyalgia Family History Family History Father CAD (coronary artery disease) Asbestosis Mother Hypothyroidism Surgical History Surgical History (Updated 01/07/20 @ 11:21 by Renetta Gomez NP) H/O exploratory laparotomy H/O: hysterectomy History of back surgery Social History Social History Household Members: Spouse Housing: Other Housing Other:: [place] Do you presently have visiting nurse or other home services: No Smoking Status: Former smoker Use of substances other than those prescribed or required for medical reasons: No Have you been hit, kicked, punched, or otherwise hurt by someone within the past year? If so, by whom?: No Do you feel safe in your current relationship?: Yes Is there a partner from a previous relationship who is making you feel unsafe now?: No Are you made to feel afraid or neglected: No Advance Directives: No Advance Directives Information Provided: No Do you have thoughts of harming others: None Do you have a plan to hurt others: No Plan Recently lost weight without trying: No service: No Travel History History of recent travel: No Meds Allergies Allergy/AdvReac Type Severity Reaction Status Date / Time metoclopramide [Reglan] Allergy Unknown anaphylaxis Verified 01/01/20 12:04 tramadol [TRAMADOL] Allergy Unknown UNKNOWN, Verified 01/07/20 18:35 seizure, seizure Home Medications Medication Instructions Recorded Confirmed Type albuterol sulfate 90 mcg/actuation 2 puff INHALATION Q6H PRN 12/24/19 01/07/20 History aerosol inhaler [id number]-uzfbadmkjcgss-aoltloyn 1 cap PO TID 12/24/19 01/07/20 History 50 mg-325 mg-40 mg capsule fluticasone propionate 50 1 spray INTRANASAL BID 12/24/19 01/07/20 History mcg/actuation nasal spray,suspension Physical Exam Vital Signs: Vital Signs: Last Vital Signs Temp 98.4 F 01/08/20 11:13 Pulse 76 01/08/20 11:13 Resp 18 01/08/20 11:13 BP 136/77 01/08/20 11:13 Pulse Ox 98 01/08/20 11:13 Body Mass Index 22.3 Const: Other: not on oxygen General: cooperative Orientation/consciousness: oriented to person, oriented to place and oriented to time HENMT: Head: Yes normal to inspection Ears: hearing grossly normal bilaterally Mouth: oropharynx normal Eyes: General: appearance normal, both eyes and all related structures Resp: Effort & Inspection: normal respiratory effort Cardio: Rate: regular rate Rhythm: regular rhythm GI: Inspection: Yes normal to inspection Palpation (GI): Soft to palpation and nontender : General: Yes no CVA tenderness Back/Spine/Pelvis: Back: no CVA tenderness Thoracic/Lumbar Spine: thoracic and lumbar spine normal to inspection Skin: General skin exam: no rashes or lesions noted Neuro: General: oriented to person, oriented to place, oriented to time, tone normal and moves all extremities Assessment and Plan (1) YESSICA (acute kidney injury): Problem details: The weakness and fatigue may be due to kidney injury There is no pneumonia and no oxygen demand Urine and blood cultures are negative Possible kidney injury related to autoimmune disease Status: Acute Would stop Ceftriaxone and Zmax No indication at this time per above Results Labs CBC & Chem 7: 01/08/20 12:19 01/08/20 05:02 Labs: Short CBC 01/08/20 01/08/20 01/08/20 Range/Units 05:45 05:45 12:19 WBC 11.3 H Cancelled (4.8-10.8) X10*3/uL Hgb 7.5 L Cancelled 7.5 L (12.0-16.0) g/dl Hct 24.0 L Cancelled 24.1 L (37-47) % Plt Count 502 H Cancelled (160-400) X10*3/uL BMP 01/07/20 01/08/20 19:13 05:02 Sodium 138 138 Potassium 4.4 5.2 H Chloride 110 H 111 H Carbon Dioxide 16 L 18 L BUN 71 H 66 H Creatinine 4.60 H* 4.46 H* Calcium 7.8 L 8.1 L Microbiology Microbiology Results: Microbiology 01/07/20 08:49 Urine clean catch - Clean Catch Midstream Urine Culture - Final No growth. 01/07/20 06:54 Blood - Venous Blood Culture - Preliminary No growth after 24 hours. 01/07/20 06:54 Blood - Venous Blood Culture - Preliminary No growth after 24 hours.
[2020-01-08 15:13] VITALS: BP 146/72; PULSE 81; RESP 18; TEMP 37; O2SAT 100
--- NOTE | 2020-01-08 16:24 | PM.HEMONCCN ---
Subjective - Subjective Chief complaint: Weakness Consult date: 01/08/20 Requesting Physician: Kathleen Marcum MD Primary Care Provider: Angel Vidal MD HPI - Consult Narrative Reason for consult: Anemia Narrative: Chely Ornelas is a 54 year old female who is admitted with acute renal failure and found to be anemic. She presented with some Tums of cough and was concerned as she was living in a trailer that had black mold. She has been having back pain for several months and has been taking 6-8 tablets of ibuprofen on a daily basis for several weeks. Two years ago she took herself off all narcotic pain medications. She was concerned about COVID-19 and did not seek medical attention for her back pain. She also noticed that she was not urinating in the last few days. She reports progressive fatigue, loss of appetite and weight loss. She denies fever, chills, nausea, emesis or change in bowel habits. Initial blood work revealed a hemoglobin of 8.1 gram/dL and a creatinine of 4.6. A year ago she had hemoglobin of 12 gram/dL and normal creatinine. She was told of iron deficiency anemia many years ago when she was menstruating. She has never had a screening colonoscopy. A few months ago she was told of possibility of SLE, she was supposed to go to [place] for a workup but she did not go. Review of Systems - Constitutional Reports as per HPI, Reports no additional constitutional complaints - Cardiovascular Reports no additional cardiovascular complaints - Respiratory Reports no additional respiratory complaints - Gastrointestinal Reports no additional gastrointestinal complaints - Musculoskeletal Reports back pain [facility] Medical History: Medical History (Last Reviewed 01/08/20 @ 13:23 by Amanda Jimenez MD) Back pain Fibromyalgia Family History: Family History (Last Reviewed 01/08/20 @ 13:23 by Amanda Jimenez MD) Father CAD (coronary artery disease) Asbestosis Mother Hypothyroidism Surgical History: Surgical History (Last Updated 01/07/20 @ 11:21 by Renetta Gomez NP) H/O exploratory laparotomy H/O: hysterectomy History of back surgery Smoking status: Former smoker Home Medications and Allergies Current Medications: Current Medications Generic Name Dose Route Start Last Admin Trade Name Freq PRN Reason Stop Dose Admin Acetaminophen/Butalbital/Caffeine 1 tab 01/07/20 21:00 01/08/20 15:51 Butalb/Acetamin/Caff 50/325/40 1 Tab Tablet PO 1 tab TID LINDSAY Administration Albuterol Sulfate 2 puff 01/07/20 16:38 Albuterol Sulfate 90 Mcg 8 Gm Inhaler INHALE Q6H PRN Wheezing Carisoprodol 350 mg 01/07/20 16:38 01/08/20 12:27 Carisoprodol 350 Mg Tablet PO 350 mg TID PRN Administration muscle pain Fluticasone Propionate 1 spray 01/07/20 21:00 01/08/20 08:04 Fluticasone Propionate Nasal 16 Gm [place] NOSTRIL-B Not Given BID [facility] Lactated Ringer's 1,000 mls @ 100 mls/hr 01/08/20 11:45 01/08/20 12:25 Lr IVCONT 100 mls/hr .Q10H [facility] Administration Pharmacy Consult 1 each 01/07/20 06:59 Consult Rx Perform Med Rec MISCELLANE ONCE PRN Consult order Sodium Chloride 3 ml 01/07/20 16:38 01/08/20 15:45 0.9 % Sodium Chloride Flush 3 Ml Syringe IVFLUSH Not Given QSHIFT [facility] Home Medications Medication Instructions Recorded Confirmed Type albuterol sulfate 90 mcg/actuation 2 puff INHALATION Q6H PRN 12/24/19 01/07/20 History aerosol inhaler cnqipnqgbt-ucrswfpmjiten-wnlgwzlo 1 cap PO TID 12/24/19 01/07/20 History 50 mg-325 mg-40 mg capsule fluticasone propionate 50 1 spray INTRANASAL BID 12/24/19 01/07/20 History mcg/actuation nasal spray,suspension Allergies Allergy/AdvReac Type Severity Reaction Status Date / Time metoclopramide [Reglan] Allergy Unknown anaphylaxis Verified 01/01/20 12:04 tramadol [TRAMADOL] Allergy Unknown UNKNOWN, Verified 01/07/20 18:35 seizure, seizure Physical Exam Vital signs: Vital Signs Temp 98.6 F 01/08/20 15:13 Pulse 81 01/08/20 15:13 Resp 18 01/08/20 15:13 BP 146/72 H 01/08/20 15:13 Pulse Ox 100 01/08/20 15:13 Intake & Output 01/07/20 01/08/20 01/08/20 18:59 06:59 18:59 Intake Total 3060 / 4100 1040 / 4100 240 / 240 Output Total 500 / 900 400 / 900 500 / 500 Balance 2560 / 3200 640 / 3200 -260 / -260 Urine Output (Average ml/kg/hr) 0.63 0.50 0.63 Intake: Intake, Oral Amount 240 / 240 240 / 240 Intake, IV Amount 3060 / 3860 800 / 3860 0.9 % Sodium Chloride 1,860 ml 1860 / 1860 @ Wide Open IV .Q0M STA Rx#: [id number] 0.9 % Sodium Chloride 1,000 ml 1000 / 1000 @ 1000 mls/hr IV .Q1H STA Rx#: [id number] Azithromycin 500 mg In 0.9 % 250 / 250 Sodium Chloride 250 ml @ 125 mls/hr IV Q24H LINDSAY Rx#: [id number] Lactated Ringers 500 ml @ 100 500 / 500 mls/hr IV .Q5H LINDSAY Rx#: [id number] cefTRIAXone sodium 1 gm In 0.9 50 / 100 50 / 100 % Sodium Chloride 50 ml @ 100 mls/hr IV Q12H LINDSAY Rx#: [id number] levoFLOXacin/D5W 750 mg In 150 150 / 150 ml @ 100 mls/hr IV ONCE ONE Rx# :[id number] Output: Output, Urine Amount 400 / 400 500 / 500 Output, Urine Amount (Catheter) 500 / 500 Urethral 500 / 500 Other: Breakfast % Eaten 100% Lunch % Eaten 100% Urine thakur Urine Color Yellow Yellow Continuous Bladder Irrigation Fluid - Amount Instilled Urethral 900 Weight 66.5 kg Weight 66.5 kg - Constitutional Present: no acute distress - Routine HEENT Exam Head: Present: normal inspection Eye: Present: conjunctivae pale, PERRL - Routine Respiratory Exam Absent: respiratory distress - Routine Cardiovascular Exam Cardiovascular: Present: S1, S2 - Routine Abdominal Exam Present: soft - Routine Skin Exam Present: intact. Absent: cyanosis - Routine Neurological Exam Present: alert, oriented X3 - Routine Psychiatric Exam Present: normal affect Hem/Onc Consult Result - Labs CBC & Chem 7: 01/09/20 05:29 01/09/20 05:29 Labs: Short CBC 01/08/20 01/08/20 01/08/20 Range/Units 05:45 05:45 12:19 WBC 11.3 H Cancelled (4.8-10.8) X10*3/uL Hgb 7.5 L Cancelled 7.5 L (12.0-16.0) g/dl Hct 24.0 L Cancelled 24.1 L (37-47) % Plt Count 502 H Cancelled (160-400) X10*3/uL BMP 01/07/20 01/08/20 19:13 05:02 Sodium 138 138 Potassium 4.4 5.2 H Chloride 110 H 111 H Carbon Dioxide 16 L 18 L BUN 71 H 66 H Creatinine 4.60 H* 4.46 H* Calcium 7.8 L 8.1 L Assessment and Plan (1) Anemia Status: Acute Qualifiers: Anemia type: due to chronic kidney disease Qualified Code(s): D64.9 - Anemia, unspecified 1. This is a 54-year-old woman admitted for acute kidney injury found to have moderately severe anemia. She has normocytic anemia with iron indices consistent with anemia of chronic disease. She probably had renal insufficiency ongoing for several weeks. Workup for etiology of kidney disease is underway. Probably related to NSAIDs but underlying SLE has also been raised as a possibility. There is no evidence of hemolysis. I recommend starting her on ferrous sulfate 325 mg p.o. b.i.d.. Elevated ferritin is an acute phase reactant. Blood transfusion if her hemoglobin continues to drop or patient becomes symptomatic. I thank you very much for this referral.
--- NOTE | 2020-01-08 17:46 | HO.PM.IMPN ---
Subjective Subjective Date of Service: 01/08/20 Interval History: YESSICA, pneumonia Review of Systems Patient seems to be feeling better, denies any chest pain or sob or any urinary complaints Physical Exam Vital Signs: Vital Signs: Last Vital Signs Temp 98.6 F 01/08/20 15:13 Pulse 81 01/08/20 15:13 Resp 18 01/08/20 15:13 BP 146/72 H 01/08/20 15:13 Pulse Ox 100 01/08/20 15:13 Body Mass Index 22.3 Physical exam: Cvs: rrr, [id number] , no murmur res: Grossly fair entry, no rales or rhonchi. abd: no rebound or guarding ,nt, bs present. ext :pulses present , no cyanosis neuro: axo3 , nonfocal. Objective Data Current Medications Generic Name Dose Route Start Last Admin Trade Name Freq PRN Reason Stop Dose Admin Acetaminophen/Butalbital/Caffeine 1 tab 01/07/20 21:00 01/08/20 15:51 Butalb/Acetamin/Caff 50/325/40 1 Tab Tablet PO 1 tab TID LINDSAY Administration Albuterol Sulfate 2 puff 01/07/20 16:38 Albuterol Sulfate 90 Mcg 8 Gm Inhaler INHALE Q6H PRN Wheezing Carisoprodol 350 mg 01/07/20 16:38 01/08/20 12:27 Carisoprodol 350 Mg Tablet PO 350 mg TID PRN Administration muscle pain Fluticasone Propionate 1 spray 01/07/20 21:00 01/08/20 08:04 Fluticasone Propionate Nasal 16 Gm [place] NOSTRIL-B Not Given BID [facility] Lactated Ringer's 1,000 mls @ 100 mls/hr 01/08/20 11:45 01/08/20 12:25 Lr IVCONT 100 mls/hr .Q10H [facility] Administration Pharmacy Consult 1 each 01/07/20 06:59 Consult Rx Perform Med Rec MISCELLANE ONCE PRN Consult order Sodium Chloride 3 ml 01/07/20 16:38 01/08/20 15:45 0.9 % Sodium Chloride Flush 3 Ml Syringe IVFLUSH Not Given QSHIFT [facility] Labs CBC & Chem 7: 01/08/20 12:19 01/08/20 05:02 Microbiology Microbiology Results: Microbiology 01/07/20 08:49 Urine clean catch - Clean Catch Midstream Urine Culture - Final No growth. 01/07/20 06:54 Blood - Venous Blood Culture - Preliminary No growth after 24 hours. 01/07/20 06:54 Blood - Venous Blood Culture - Preliminary No growth after 24 hours. Assessment and Plan (1) YESSICA (acute kidney injury): Problem details: The weakness and fatigue may be due to kidney injury There is no pneumonia and no oxygen demand Urine and blood cultures are negative Possible kidney injury related to autoimmune disease Status: Acute Assessment and Plan: 54 year old women admitted with YESSCIA, UTI and CAP. She was recently treated with doxycycline for Upper respiratory infection. 1.Sepsis secondary to CAP: Sepsis seems to be resolved Chest imaging reviewed with the ID, patient is not short of breath or any new symptoms Urine culture negative-less likely UTI also. Will hold off on antibiotics 2.YESSICA? Possibly related to NSAID use. Continue IV fluids-seems slowly improving Nephrology to follow. 3.Normocytic anemia. No signs of bleeding. Likely related to YESSICA. Follow closely. H&H trending down to 7.5 Type and cross ? Recently patient was told about lupus testing which she could not make it. She is currently refusing blood transfusion, discussed with her detail about the risk and benefit. Will continue to monitor the H&H, she says that she will rediscuss if it goes further down. Will add anemia workup, FOBT, hematology evaluation .
[2020-01-08 19:28] VITALS: BP 134/75; PULSE 83; RESP 18; TEMP 36.8; O2SAT 98
[2020-01-08 21:21] LABS: Hematocrit 22.2 % (37-47)
--- NOTE | 2020-01-08 22:00 | PC.NURSE ---
Pt had critical Hgb level of 7.0 at 2130, which is slightly lower than last 2 previous Hgb levels of 7.5. Pt VERY hesitant about possible blood transfusion stating she is worried about getting a disease from potential blood transfusion. Per Dr Cornell, repeat Hgb/Hct ordered for appx 0600 on 01/09/20. Informed pt of MD's decision and she is resting more comfortably and less anxious after hearing Dr Cornell's instruction. No s/s of active bleeding noted to pt. Will continue to monitor and safety measures in place with call paz within reach.
[2020-01-09] VITALS (13 sets, daily range): BP systolic 128–154; BP diastolic 64–91; PULSE 68–87; RESP 18–20; TEMP 36.3–37.3; O2SAT 98–100
[2020-01-09] MEDS: Lactated Ringers 1,000 ML 100 ML IVCONT (03:13)
[2020-01-09 06:42] LABS: Hematocrit 22.4 % (37-47); Hemoglobin 7.1 g/dl (12.0-16.0)
[2020-01-09] MEDS: carisoprodoL 350 MG TABLET PO ×3 (06:45→20:49)
[2020-01-09 08:01] LABS: Anion Gap 15 (12-20); Blood Urea Nitrogen 63 mg/dL (9-16); Calcium 7.9 mg/dL (8.4-10.2); Carbon Dioxide 18 mmol/L (22-29); Chloride 108 mmol/L (96-108); Creatinine Clr Calc Pharmacy 14.5; Estimated Glomerular Filt Rate 10; Glucose Random 116 mg/dL (60-115); Potassium 4.8 mmol/l (3.3-5.1); Sodium 136 mmol/L (135-145)
[2020-01-09 09:55] LABS: Hepatitis A Antibody IgM 0.15 Index (0-0.79); ~Hepatitis A Antibody IgM Nonreactive (Nonreactive)
--- NOTE | 2020-01-09 10:50 | PM.EVENT ---
Event Note Date of Service: 01/09/20 Event Note: Patient seen this AM for Pulm. consult . Case reviewed and patient is examine. Complete Consultation note is dictated . A/P : Bilateral , subplural Pulm . Fibrosis , Tthis seems to be chronic , and may Non specific or sec to CT. disease . will need further W/U , which can be completed as out pt . She does not need any Antibiotics , or steroids at this time . She does not need O2 . Post Disch . from here she can be followed up by her Manager Product Support at [facility].
--- NOTE | 2020-01-09 12:13 | CONS_ITS ---
DATE OF SERVICE: 01/09/2020 REQUESTING PHYSICIAN: Dr. Marcum. HISTORY OF PRESENT ILLNESS: This patient is a 54-year-old female, admitted on January 06 through the emergency room with general weakness, mild cough, minimal sputum and getting short of breath on exertion. She denies fever, chills, or any expectoration of mucopurulent agents. Back in November, she had nonspecific respiratory symptoms and was treated with a course of Z-CARLY. The patient has been followed up by Dr. Brambila of Pulmonary Division at [facility]. For the past few months, this patient has been isolating herself in the trailer and recently found that there is a lot of mold in the trailer. At this time, she is admitted with general weakness and found to have acute renal failure, which has now improved with hydration. The patient is also found to be anemic with a hemoglobin of 10 g, which may explain some degree of shortness of breath and generalized weakness. The patient has history of fibromyalgia and has been using quite a bit of ibuprofen in the past few months. Pulmonary miranda, she does not have history of any chronic lung disease like bronchial asthma or chronic bronchitis. Seen recently by a key person at [facility]. Her CT scan is abnormal showing fibrosis and honeycombing in the peripheral areas of lower lungs. Question of connective tissue disease has been raised and the patient was going to get a workup at [facility], but that has not happened. The patient does not use any respiratory medications and she has not required oxygen. PAST MEDICAL HISTORY: In addition to above-noted history, she has chronic back pain and chronic fibromyalgia, for which she is being treated with NSAIDs. She has had exploratory laparotomy and hysterectomy in the past. Also has had back surgery. PERSONAL HISTORY: Smoked for about 10 to 15 years, but quit back in mid s. Denies any alcohol intake. Has history of using narcotic medications for pain, but has taken her off for the last 2 years. REVIEW OF SYSTEMS: Her symptoms pertain to respiratory system in the form of mild intermittent cough and getting short of breath easily. Denies chest pain. She has GI symptoms of GERD and poor appetite, which are improved. She has had a bout of diarrhea in the past, but not at present. PHYSICAL EXAMINATION: GENERAL: A 54-year-old female is of a thin build, slightly short of breath as she walked from the bathroom to the bed, but not in any respiratory distress. VITAL SIGNS: Temperature is normal. Respiratory rate 14. SKIN: Color is slightly pale. EAR, NOSE, THROAT: Examination not remarkable. No acute infection is noted. NECK: No lymphadenopathy. Trachea in midline. CHEST: Percussion note resonant. Breath sounds are vesicular, equal on both sides. A very few fine inspiratory crackles heard over the basilar areas. No wheezes. CARDIAC: Sounds are normal. No murmurs or gallops. ABDOMEN: Flat, soft, and nontender. EXTREMITIES: No edema or varicosities. LABORATORY DATA: CT scan of the chest is reviewed. It shows chronic type of fibrotic changes with honeycombing and traction bronchiectasis in both lower lobes, mostly in the periphery and subpleural spaces. No old pulmonary nodules and no definite infiltrate are noted. V/Q scan was negative for pulmonary embolism. The electrolytes are normal and currently BUN 63, creatinine 4.37, which is showing slight improvement. Hemoglobin 10. CLINICAL IMPRESSION: 1. Acute renal failure, probably due to use of NSAIDs, but may be due to underlying connective tissue disease. 2. Anemia, related to use of NSAIDs and renal failure accounts for her general weakness and partly accounts for shortness of breath on exertion. 3. Evidence of pulmonary fibrosis, subpleural, both lower lobes, with traction bronchiectasis. This is a chronic process, probably related to inhalation injury in the past or may be due to connective tissue disease. Currently, her respiratory status is stable and she does not require any oxygen. She does not require any antibiotics. RECOMMENDATIONS: 1. Treat anemia. 2. Treat acute renal failure. 3. Treatment of cough only symptomatically. 4. No need of any special treatment for pulmonary fibrosis. 5. Further workup to be done as outpatient, and the patient is being followed by Pulmonary Division at [facility]. Thank you very much for asking me to see this patient. MD RONEN Ramos/NINA / [id number]
[2020-01-09] MEDS: Acetaminophen 325 MG TABLET 650 MG PO (13:14)
--- NOTE | 2020-01-09 15:19 | HO.PM.IMPN ---
Subjective Subjective Date of Service: 01/10/20 Interval History: YESSICA, anemia Review of Systems Patient denies any shortness of breath or abdominal pain or fever or chills or any urinary complaints. YESSICA is improving very slowly She agrees for blood transfusion this morning. Physical Exam Vital Signs: Vital Signs: Last Vital Signs Temp 97.8 F 01/09/20 13:08 Pulse 82 01/09/20 13:08 Resp 18 01/09/20 13:08 BP 143/89 H 01/09/20 13:08 Pulse Ox 100 01/09/20 11:28 Body Mass Index 22.3 Physical exam: Cvs: rrr, [id number] , no murmur res: groslly fair air enrty, no rales or wheezing abd: no rebound or guarding ,nt, bs present. ext pulses present , no cyanosis neuro: axo3 , nonfocal. Objective Data Current Medications Generic Name Dose Route Start Last Admin Trade Name Freq PRN Reason Stop Dose Admin Acetaminophen/Butalbital/Caffeine 1 tab 01/07/20 21:00 01/09/20 14:32 Butalb/Acetamin/Caff 50/325/40 1 Tab Tablet PO 1 tab TID LINDSAY Administration Albuterol Sulfate 2 puff 01/07/20 16:38 Albuterol Sulfate 90 Mcg 8 Gm Inhaler INHALE Q6H PRN Wheezing Carisoprodol 350 mg 01/07/20 16:38 01/09/20 06:45 Carisoprodol 350 Mg Tablet PO 350 mg TID PRN Administration muscle pain Fluticasone Propionate 1 spray 01/07/20 21:00 01/09/20 07:49 Fluticasone Propionate Nasal 16 Gm [place] NOSTRIL-B Not Given BID [facility] Lactated Ringer's 1,000 mls @ 100 mls/hr 01/08/20 11:45 01/09/20 12:57 Lr IVCONT 0 mls/hr .Q10H [facility] Infusion Pharmacy Consult 1 each 01/07/20 06:59 Consult Rx Perform Med Rec MISCELLANE ONCE PRN Consult order Sodium Chloride 3 ml 01/07/20 16:38 01/09/20 14:33 0.9 % Sodium Chloride Flush 3 Ml Syringe IVFLUSH Not Given QSHIFT [facility] Labs CBC & Chem 7: 01/10/20 15:12 01/10/20 05:39 Microbiology Microbiology Results: Microbiology 01/07/20 06:54 Blood - Venous Blood Culture - Preliminary No growth after 48 hours. 01/07/20 06:54 Blood - Venous Blood Culture - Preliminary No growth after 48 hours. 01/07/20 08:49 Urine clean catch - Clean Catch Midstream Urine Culture - Final No growth. Assessment and Plan (1) YESSICA (acute kidney injury): Problem details: 54 year old white female admitted to hospital with acute kidney injury on the backdrop of recent upper respiratory tract infection and question of underlined college vasc disease along with heavy NSAID use for the past several weeks 1. YESSICA: SCr Unchaged sero w/u reveals slt decr C4 and positive anti-MPO titer...the latter does raise ques of anca vasculitis and could potentially explain some of her longstanding pulm symptoms still NSAID assoc kidney injury a distinct possibility wide DDX including NSAID can effect the kidneys in several ways including: AIN, renal hypoperfusion and on rare occassions cause minimal change disease AIN from NSAIDs AGN: d/t underlying cvollagen vasc disesase ( eg SLE) or vasculitis ( ANCA assoc, anti GBM) the latter are very concerning given her ongoing pulm issues ATN: multifact pre-renal: d/t dehydration and NSAIDs can contribute to renal hypoperfusion Acute Obs : r/o by CT w/o hydro 2. Anemia 3. Ques CVDz with high EREN and chronic MSK aches and pul disease and now anti-MPO 4. MSK pains: fibromayalgia and ques additional CVDz 5. Pulm: recurrent resp illness and abnl CT of chest s/p xfuse arrange for kidney Bx reorder ANCA.. will give DDAVP pre Bx once we know she is going for Bx; Status: Acute Assessment and Plan: 54 year old women admitted with YESSICA, UTI and CAP. She was recently treated with doxycycline for Upper respiratory infection. 1.Sepsis secondary to CAP: Sepsis seems to be resolved Chest imaging reviewed with the ID, patient is not short of breath or any new symptoms Urine culture negative-less likely UTI also. Will hold off on antibiotics 2.YESSICA? Possibly related to NSAID use. Continue IV fluids-seems slowly improving Depending on morning labs patient will need biopsy, BMP PT INR added Keep NPO past midnight Nephrology to follow. 3.Normocytic anemia. No signs of bleeding. Likely related to YESSICA. Follow closely. H&H trending down to 7.5 Type and cross Anemia reviewed FOBT pending Patient understand and agree to get blood transfusion today. .
--- NOTE | 2020-01-09 15:25 | P.PNNP_ITS ---
Subjective Subjective Principal diagnosis: YESSICA Interval history: Overall feeling better. No CP/SOB. No GI sypmtoms. Physical Exam Vital Signs: Vital Signs: Last Vital Signs Temp 99.5 F 01/07/20 11:20 Pulse 93 01/07/20 11:20 Resp 16 01/07/20 11:20 BP 152/80 H 01/07/20 11:20 Pulse Ox 99 01/07/20 11:20 Body Mass Index 20.9 Appearing in no acute distress head is normocephalic atraumatic eyes pupils are PERRLA sclera is anicteric mouth throat mucous membranes are intact and moist neck is supple no lymphadenopathy, no JVD noted lung normal expansion heart regular rate rhythm Soft abdomen neuro patient is alert x3, no focal deficits Const: Other: Last Vital Signs Temp 99.5 F 01/07/20 11:20 Pulse 93 01/07/20 11:20 Resp 16 01/07/20 11:20 BP 152/80 H 01/07/20 11:20 Pulse Ox 99 01/07/20 11:20 Body Mass Index 20.9 Cardio: Other: Last Vital Signs Temp 99.5 F 01/07/20 11:20 Pulse 93 01/07/20 11:20 Resp 16 01/07/20 11:20 BP 152/80 H 01/07/20 11:20 Pulse Ox 99 01/07/20 11:20 Body Mass Index 20.9 Assessment & Plan Assessment and plan (1) YESSICA (acute kidney injury): Status: Acute Assessment and Plan: 54 year old white female admitted to hospital with acute kidney injury on the backdrop of recent upper respiratory tract infection and question of underlined college vasc disease along with heavy NSAID use for the past several weeks i will reorder ANCA as a I do not se that result 1. YESSICA: SCr slt dereased but delay and sero w/u reveals slt decr C4 and positive anti-MPO titer...the latter does rasie ques of anca vasculitsi and could potentially explain some of her longstanding pulm symptoms still NSAID assoc kidney injury a distinct possoibility wide DDX including NSAID can effect the kidneys in several ways including: AIN, renal hypoperfusion and on rare occassions cause minimal change disease AIN from NSAIDs AGN: d/t underlying cvollavgen vasc disesase ( eg SLE) or vasculitis ( ANCA assoc, anti GBM) the latter are very concerning given her ongoing pulm issues ATN: multifact pre-renal: d/t dehydration and NSAIDs can contribute to renal hypoperfusion Acute Obs : r/o by CT w/o hydro TMA: very unlikely given PLT are not decreased 2. Anemia 3. Ques CVDz with high EREN and chronic MSK aches and pul disease and now anti- MPO 4. MSK pains: fibromayalgia and ques additional CVDz 5. Pulm: recurrent resp illness and abnl CT of chest REC: xfuse 1 uprtbc; arrange for kidney Bx in am ( if SCr < 4.0 in am then will hold off on Bx); reoder ANCA..I will order the last two items; will give DDAVP pre Bx once we know she isgoing for Bx; NPO after midnight and no Sq hep in am in prep of Bx, will follow closely with med team Time Spent With Patient Time: Total time spent is greater than 50% in coordination of care (as documented) at patient's floor/unit and/or counseling patient: Procedures Abscess I/D Date of Service: 01/09/20
--- NOTE | 2020-01-09 15:47 | MHC.CM.PN ---
dc plan remanins home no services no dc date at thsi time
[2020-01-09] MEDS: 0.9 % Sodium Chloride Flush 3 ML SYRINGE IVFLUSH (20:49)
--- NOTE | 2020-01-09 21:50 | PC.NURSE ---
PTS IV STARTED LEAKING DURING BLOOD TRANSFUSION. SITE DC'D. # 20 PLACED L AC WITHOUT DIFFICULTY. BLOOD TRANSFUSION COMPLETED IN JUST UNDER 4HOURS PRESCRIBED BY . VSS. NO S/SX REACTION. WILL CONTINUE TO MONITOR.
[2020-01-10] VITALS (12 sets, daily range): BP systolic 128–159; BP diastolic 56–84; PULSE 65–87; RESP 16–20; TEMP 36.7–37.6; O2SAT 93–100
--- NOTE | 2020-01-10 | US_ITS ---
EXAMINATION: PROCEDURE: Ultrasound-guided biopsy Referring provider: Jodie Marcum Procedural Personnel Attending physician(s): Ramon Blankenship MD Resident physician(s): None Advanced practice provider(s): None Pre-procedure diagnosis: Renal dysfunction Post-procedure diagnosis: Same Indication: Organ dysfunction Previous biopsy of same target (QCDR): No Additional clinical history: None Complications: No immediate complications. US/US guide needle placement IMPRESSION: Ultrasound-guided cortical biopsy of the right kidney. Plan: Specimen(s) sent for evaluation. PROCEDURE SUMMARY: - Percutaneous US-guided coaxial core needle biopsy - Additional procedure(s): None PROCEDURE DETAILS: Pre-procedure Reference imaging for biopsy target: CT of the abdomen on 01/07/2020 Consent: Informed consent for the procedure including risks, benefits and alternatives was obtained and time-out was performed prior to the procedure. Preparation: The site was prepared and draped using maximal sterile barrier technique including cutaneous antisepsis. Anesthesia/sedation Level of anesthesia/sedation: Minimal sedation (anxiolysis) Anesthesia/sedation administered by: Independent trained observer under attending supervision with continuous monitoring of the patient?s level of consciousness and physiologic status. Medications: 2 mg Versed IV Imaging prior to biopsy The patient was positioned prone. Initial ultrasound was performed. Biopsy target: - Location: Right renal cortex Other findings: Normal appearance of the right kidney. No evidence of hydronephrosis. Biopsy Local anesthesia was administered. Under US guidance, the biopsy needle was advanced to the target and biopsy was performed. Coaxial needle: 17 gauge Core needle biopsy device: [employer] Core needle size: 18 gauge Number of core specimens: 3 Needle removal The biopsy needle was removed and a sterile dressing was applied. Tract embolization: Gelfoam pledgets Pressure was held for 10 contiguous minutes after the needle was removed. Ultrasound images were performed at this time demonstrating no post procedure hematoma or evidence of complication. Imaging following biopsy Immediate post-biopsy ultrasound was performed. Post-biopsy imaging findings: No evidence of postprocedure complication. No perinephric hematoma identified. Additional Details Additional description of procedure: None Equipment details: None Specimens removed: Biopsy samples as detailed above Estimated blood loss (mL): Less than 10 Standardized report: [email or web address] Attestation Signer name: Ramon Blankenship I attest that I was present for the entire procedure. I reviewed the stored images and agree with the report as written.
--- NOTE | 2020-01-10 | US_ITS ---
EXAMINATION: PROCEDURE: Ultrasound-guided biopsy Referring provider: Jodie Marcum Procedural Personnel Attending physician(s): Ramon Blankenship MD Resident physician(s): None Advanced practice provider(s): None Pre-procedure diagnosis: Renal dysfunction Post-procedure diagnosis: Same Indication: Organ dysfunction Previous biopsy of same target (QCDR): No Additional clinical history: None Complications: No immediate complications. US/US biopsy renal IMPRESSION: Ultrasound-guided cortical biopsy of the right kidney. Plan: Specimen(s) sent for evaluation. PROCEDURE SUMMARY: - Percutaneous US-guided coaxial core needle biopsy - Additional procedure(s): None PROCEDURE DETAILS: Pre-procedure Reference imaging for biopsy target: CT of the abdomen on 01/07/2020 Consent: Informed consent for the procedure including risks, benefits and alternatives was obtained and time-out was performed prior to the procedure. Preparation: The site was prepared and draped using maximal sterile barrier technique including cutaneous antisepsis. Anesthesia/sedation Level of anesthesia/sedation: Minimal sedation (anxiolysis) Anesthesia/sedation administered by: Independent trained observer under attending supervision with continuous monitoring of the patient?s level of consciousness and physiologic status. Medications: 2 mg Versed IV Imaging prior to biopsy The patient was positioned prone. Initial ultrasound was performed. Biopsy target: - Location: Right renal cortex Other findings: Normal appearance of the right kidney. No evidence of hydronephrosis. Biopsy Local anesthesia was administered. Under US guidance, the biopsy needle was advanced to the target and biopsy was performed. Coaxial needle: 17 gauge Core needle biopsy device: [employer] Core needle size: 18 gauge Number of core specimens: 3 Needle removal The biopsy needle was removed and a sterile dressing was applied. Tract embolization: Gelfoam pledgets Pressure was held for 10 contiguous minutes after the needle was removed. Ultrasound images were performed at this time demonstrating no post procedure hematoma or evidence of complication. Imaging following biopsy Immediate post-biopsy ultrasound was performed. Post-biopsy imaging findings: No evidence of postprocedure complication. No perinephric hematoma identified. Additional Details Additional description of procedure: None Equipment details: None Specimens removed: Biopsy samples as detailed above Estimated blood loss (mL): Less than 10 Standardized report: [email or web address] Attestation Signer name: Ramon Blankenship I attest that I was present for the entire procedure. I reviewed the stored images and agree with the report as written.
--- NOTE | 2020-01-10 | CT_ITS ---
EXAMINATION: CT ABDOMEN WITHOUT CONTRAST CLINICAL INFORMATION: Ultrasound-guided right renal biopsy performed earlier today. Worsening right flank pain. COMPARISON: CT of the abdomen and pelvis without contrast on 01/07/2020 TECHNIQUE: Contiguous axial thin section helical images of the abdomen were performed without contrast. The data set was reformatted in the coronal and sagittal planes and reviewed on an independent workstation. This CT examination was performed using dose optimization techniques as appropriate, variously including the following: *Automated exposure control *Adjustment of mA and/or kV according to patient size (this includes techniques or standardized protocols for targeted exams where dose is matched to indication/reason for exam; i.e. extremities or head) *Use of iterative reconstruction technique DLP: 207 mGy-cm FINDINGS: LUNG BASES: Subpleural reticulation and fibrotic changes at the lung bases are unchanged. No focal consolidations. The heart is normal in size. LIVER, GALLBLADDER, BILIARY TREE: The liver is normal in size and attenuation. There is no ductal dilatation. The gallbladder is normal appearing. PANCREAS: Unremarkable SPLEEN: Unremarkable ADRENAL GLANDS AND KIDNEYS: The adrenal glands are within normal limits. The patient is status post ultrasound-guided right renal biopsy. There is a small to moderate right perinephric hematoma. The hematoma measures approximately 5.4 x 3.3 cm on image 36 of 51. Exact measurement of the hematoma is challenging in the absence of IV contrast and due to beam hardening artifact from adjacent spinal hardware. There is minimal high density fluid around the right kidney consistent with blood. The appearance of the left kidney is unchanged from the recent prior. BOWEL LOOPS: Visualized loops of bowel are within normal limits. LYMPH NODES: No new adenopathy. VASCULAR: Unremarkable. BONES: Intervertebral disc spacers are seen at L4-L5 and L5-S1 as before. No suspicious lesions. CT/CT abdomen wo con IMPRESSION: 1. Status post ultrasound-guided right renal cortical biopsy performed earlier today. There is a small to moderate mixed density right-sided perinephric hematoma. These findings were discussed with Dr. Marcum via telephone at 1:30 PM on 01/10/[address] Blankenship. Recommendations which were conveyed to Dr. Marcum include obtaining a CBC now and every 4 hours. The patient should be placed on telemetry. If the patient has any ongoing pain, ongoing bleeding, or evidence of hemodynamic instability, a repeat CT of the abdomen without contrast should be performed for further evaluation.
[2020-01-10] MEDS: Lactated Ringers 1,000 ML 100 ML IVCONT ×2 (02:58→14:27)
[2020-01-10 07:02] LABS: Basophils Absolute Auto 0.1 X10*3/uL (0.0-0.2); Basophils Percent Auto 0.4 % (0-2); Eosinophils Absolute Auto 0.3 X10*3/uL (0.0-0.4); Eosinophils Percent Auto 2.7 % (0-4); Hematocrit 29.6 % (37-47); Hemoglobin 9.4 g/dl (12.0-16.0); Imm Gran Abs Auto 0.09 X10*3/uL (0.00-0.03); Imm Gran Pct Auto 0.8 % (0.0-0.4); Lymphocytes Absolute Auto 1.3 X10*3/uL (1.2-4.9); Lymphocytes Percent Auto 10.9 % (20-40); MANUAL DIFF FLAG SCAN; Mean Corpuscular HGB Conc 31.8 g/dl (31.0-35.0); Mean Corpuscular Hemoglobin 27.8 pg (27.0-33.0); Mean Corpuscular Volume 87.6 fL (80-98); Mean Platelet Volume 10.1 fL (9.4-12.3); Monocytes Absolute Auto 1.6 X10*3/uL (0.1-1.2); Monocytes Percent Auto 13.7 % (2-11); Neutrophils Absolute Auto 8.4 X10*3/uL (2.0-8.3); Neutrophils Percent Auto 71.5 % (45-73); Platelet Count 431 X10*3/uL (160-400); Red Blood Count 3.38 X10*6/uL (4.20-5.50); Red Cell Distribution Width 13.1 % (11.0-16.0); SCAN SMEAR FLAG 1; White Blood Count 11.7 X10*3/uL (4.8-10.8)
[2020-01-10 07:11] LABS: INTERNATIONAL NORM RATIO 1.2 (0.9-1.1); Prothrombin Time 14.1 SEC (10.8-13.0)
[2020-01-10] MEDS: 0.9 % Sodium Chloride Flush 3 ML SYRINGE IVFLUSH ×3 (07:32→20:37)
[2020-01-10 07:45] LABS: SLIDE REVIEW VERIFIED
[2020-01-10 07:47] LABS: Anion Gap 15 (12-20); Blood Urea Nitrogen 58 mg/dL (9-16); Calcium 7.9 mg/dL (8.4-10.2); Carbon Dioxide 18 mmol/L (22-29); Chloride 108 mmol/L (96-108); Creatinine Clr Calc Pharmacy 14.4; Estimated Glomerular Filt Rate 10; Glucose Random 96 mg/dL (60-115); Potassium 5.1 mmol/l (3.3-5.1); Sodium 136 mmol/L (135-145)
--- NOTE | 2020-01-10 08:32 | P.PNNP_ITS ---
Subjective Subjective Principal diagnosis: YESSICA Interval history: Events noted No new issues Physical Exam Vital Signs: Vital Signs: Last Vital Signs Temp 98.3 F 01/10/20 07:35 Pulse 68 01/10/20 07:35 Resp 18 01/10/20 07:35 BP 142/70 H 01/10/20 07:35 Pulse Ox 97 01/10/20 07:35 Body Mass Index 22.3 Const: General: cooperative Neck: Neck: Yes supple Resp: Effort & Inspection: normal respiratory effort Auscultation: no rales Cardio: Heart sounds: no murmurs and no rubs GI: Palpation (GI): Soft to palpation Auscultation: normal bowel sounds Skin: General skin exam: no rashes or lesions noted Neuro: Motor exam (neuro): No Asterixis during motor activity present Assessment & Plan Assessment and plan (1) YESSICA (acute kidney injury): Problem details: 54 year old white female admitted to hospital with acute kidney injury on the backdrop of recent upper respiratory tract infection and question of underlined college vasc disease along with heavy NSAID use for the past several weeks i will reorder ANCA as a I do not se that result 1. YESSIAC: SCr slt decreased but delay and sero w/u reveals slt decr C4 and positive anti-MPO titer...the latter does rasie ques of anca vasculitis and could potentially explain some of her longstanding pulm symptoms still NSAID assoc kidney injury a distinct possibility wide DDX including NSAID can effect the kidneys in several ways including: AIN, renal hypoperfusion and on rare occassions cause minimal change disease AIN from NSAIDs AGN: d/t underlying collagen vasc disesase ( eg SLE) or vasculitis ( ANCA assoc, anti GBM) the latter are very concerning given her ongoing pulm issues ATN: multifact pre-renal: d/t dehydration and NSAIDs can contribute to renal hypoperfusion TMA: very unlikely given PLT are not decreased 2. Anemia 3. Ques CVDz with high EREN and chronic MSK aches and pul disease and now anti- MPO 4. MSK pains: fibromayalgia and ques additional CVDz 5. Pulm: recurrent resp illness and abnl CT of chest REC: arrange for kidney Bx today reordered ANCA. will give DDAVP pre Bx once Follow HCT post biopsy Status: Acute Assessment and Plan: Procedures Abscess I/D Date of Service: 01/10/20
[2020-01-10 09:14] LABS: INTERNATIONAL NORM RATIO 1.2 (0.9-1.1); Prothrombin Time 14.5 SEC (10.8-13.0)
[2020-01-10] MEDS: Morphine Sulfate 2 MG/ML CARTRIDGE 1 MG IVPUSH (11:49)
[2020-01-10] MEDS: carisoprodoL 350 MG TABLET PO ×2 (12:12→20:36)
[2020-01-10] MEDS: HYDROmorphone HCl 0.5 MG/0.5 ML SYRINGE IVPUSH ×3 (12:57→20:35)
[2020-01-10] MEDS: ondansetron HCL 4 MG/2 ML VIAL IVPUSH (12:59)
[2020-01-10 15:52] LABS: Hematocrit 27.5 % (37-47); Hemoglobin 8.8 g/dl (12.0-16.0)
[2020-01-10 16:17] LABS: Glucose, Whole Blood 74 mg/dL (60-115)
--- NOTE | 2020-01-10 17:02 | P.PNIM_ITS ---
Subjective Subjective Date of Service: 01/11/20 Interval History: YESSICA, patient went for liver biopsy now having significant pain at the site. Review of Systems Patient still has significant pain add biopsy site, denies any shortness of breath or chest pain. Physical Exam Vital Signs: Vital Signs: Last Vital Signs Temp 98.7 F 01/10/20 15:57 Pulse 66 01/10/20 15:57 Resp 18 01/10/20 15:16 BP 138/56 L 01/10/20 15:57 Pulse Ox 99 01/10/20 15:57 Body Mass Index 22.3 Physical exam: Heent : Neck supple Cvs: rrr, [id number] , no murmur res: clear to auscultation ,no rhonchii or wheezing abd: no rebound or guarding ,nt, bs present. Left lateral back area pain ext pulses present , no cyanosis neuro: axo3 , nonfocal. Objective Data Current Medications Generic Name Dose Route Start Last Admin Trade Name Freq PRN Reason Stop Dose Admin Acetaminophen/Butalbital/Caffeine 1 tab 01/07/20 21:00 01/10/20 16:10 Butalb/Acetamin/Caff 50/325/40 1 Tab Tablet PO Not Given TID LINDSAY Albuterol Sulfate 2 puff 01/07/20 16:38 Albuterol Sulfate 90 Mcg 8 Gm Inhaler INHALE Q6H PRN Wheezing Carisoprodol 350 mg 01/07/20 16:38 01/10/20 12:12 Carisoprodol 350 Mg Tablet PO 350 mg TID PRN Administration muscle pain Fluticasone Propionate 1 spray 01/07/20 21:00 01/10/20 07:35 Fluticasone Propionate Nasal 16 Gm [place] NOSTRIL-B Not Given BID LINDSAY Hydromorphone HCl 0.5 mg 01/10/20 12:42 01/10/20 16:07 Hydromorphone Hcl 0.5 Mg/0.5 Ml Syringe IVPUSH 0.5 mg Q4H PRN Administration Pain and Fever Lactated Ringer's 1,000 mls @ 100 mls/hr 01/08/20 11:45 01/10/20 14:27 Lr IVCONT 100 mls/hr .Q10H LINDSAY Administration Lidocaine 1 patch 01/11/20 09:00 Lidocaine 4 % Patch Adh..Patch TRANSDERMA DAILY [facility] Protocol Ondansetron HCl 4 mg 01/10/20 12:41 01/10/20 12:59 Ondansetron Hcl 4 Mg/2 Ml Vial IVPUSH 4 mg Q8H PRN Administration Vomiting Sodium Chloride 3 ml 01/07/20 16:38 01/10/20 16:08 0.9 % Sodium Chloride Flush 3 Ml Syringe IVFLUSH 3 ml QSHIFT LINDSAY Administration Labs CBC & Chem 7: 01/11/20 13:50 01/11/20 05:23 Microbiology Microbiology Results: Microbiology 01/07/20 06:54 Blood - Venous Blood Culture - Preliminary No growth after 48 hours. 01/07/20 06:54 Blood - Venous Blood Culture - Preliminary No growth after 48 hours. 01/07/20 08:49 Urine clean catch - Clean Catch Midstream Urine Culture - Final No growth. Assessment and Plan (1) YESSICA (acute kidney injury): Problem details: 54 year old white female admitted to hospital with acute kidney injury on the ba ckdrop of recent upper respiratory tract infection and question of underlined college vasc disease along with heavy NSAID use for the past several weeks s/p Kidneybiopsy Prelim report suggestive of IF/ EM etc pending MPO positive MS-3 NEgative Anti GM /ANCA pending Will pulse with MEthylprednisone 1 gm IV daily x 3 pending full biopsy report and serology Anemia with sub capsular hematoma post biopsy Repeat HCT ordered Status: Acute Assessment and Plan: 54 year old women admitted with YESSICA, UTI and CAP. She was recently treated with doxycycline for Upper respiratory infection. 1.Sepsis secondary to CAP: Sepsis seems to be resolved Chest imaging reviewed with the ID, patient is not short of breath or any new symptoms Urine culture negative-less likely UTI also. Will hold off on antibiotics 2.YESSICA? Possibly related to NSAID use. Given fluid patient's creatinine still significantly deranged 4.3 Patient went for renal biopsy-started to having significant pain afterwards, CT of abdominal was done:small to moderate mixed density right-sided perinephric hematoma. h/h stable near 8.5 range Please call radiology Dr. xiong radiology: since abd pain imrpoving and h/h stable as above , will continue to monitor H&H Q daily. 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 No signs of bleeding. Patient is a is having renal issues from last few weeks Also seen by Hematology: Iron studies shows question of anemia of chronic disease ferrous sulfate is 325 mg p.o. b.i.d. ? Connective tissue disease-which she was told out patiently as per the Pulmonary, but never had done the workup. .
[2020-01-10 18:47] LABS: Hemoglobin 8.6 g/dl (12.0-16.0)
[2020-01-10 22:58] LABS: Hematocrit 26.7 % (37-47); Hemoglobin 8.5 g/dl (12.0-16.0)
[2020-01-11] VITALS (10 sets, daily range): BP systolic 132–185; BP diastolic 61–85; PULSE 60–95; RESP 18–20; TEMP 36–36.9; O2SAT 92–99
[2020-01-11] MEDS: HYDROmorphone HCl 0.5 MG/0.5 ML SYRINGE IVPUSH ×6 (00:26→22:55)
[2020-01-11] MEDS: carisoprodoL 350 MG TABLET PO ×3 (04:15→23:02)
[2020-01-11 04:37] LABS: Hematocrit 26.4 % (37-47); Hemoglobin 8.3 g/dl (12.0-16.0); Mean Corpuscular HGB Conc 31.4 g/dl (31.0-35.0); Mean Corpuscular Hemoglobin 27.9 pg (27.0-33.0); Mean Corpuscular Volume 88.6 fL (80-98); Mean Platelet Volume 9.9 fL (9.4-12.3); Platelet Count 330 X10*3/uL (160-400); Red Blood Count 2.98 X10*6/uL (4.20-5.50); Red Cell Distribution Width 13.5 % (11.0-16.0); White Blood Count 12.1 X10*3/uL (4.8-10.8)
[2020-01-11 06:50] LABS: Anion Gap 18 (12-20); Blood Urea Nitrogen 66 mg/dL (9-16); Calcium 8.2 mg/dL (8.4-10.2); Carbon Dioxide 17 mmol/L (22-29); Chloride 109 mmol/L (96-108); Glucose Random 76 mg/dL (60-115); Potassium 5.2 mmol/l (3.3-5.1); Sodium 139 mmol/L (135-145)
[2020-01-11 07:11] LABS: Creatinine Clr Calc Pharmacy 12.6; Estimated Glomerular Filt Rate 9
[2020-01-11] MEDS: Lactated Ringers 1,000 ML 100 ML IVCONT (08:38)
[2020-01-11] MEDS: Sodium Polystyrene Sulfon/Sorb 15 GM/60 ML ORAL.SUSP PO (08:39)
[2020-01-11] MEDS: 0.9 % Sodium Chloride Flush 3 ML SYRINGE IVFLUSH ×3 (08:39→20:12)
[2020-01-11] MEDS: Lidocaine 4 % Patch ADH..PATCH 1 PATCH TRANSDERMA (08:40)
[2020-01-11] MEDS: methylPREDNISolone Sod Succ 1,000 MG in 0.9 % Sodium Chloride 100 ML 100 MG IV (12:35)
[2020-01-11 12:42] LABS: Myeloperoxidase Antibody 2.2 AI; Proteinase 3 PR3 Antibodies <1.0 AI
--- NOTE | 2020-01-11 12:49 | MHC.CM.PN ---
per [facility] rounds pt expected to be here 1 to 2 more days,jose miguel loomis
--- NOTE | 2020-01-11 13:38 | PM.PNNEP ---
Subjective Subjective Principal diagnosis: YESSICA Interval history: YESSICA, s/p Kidney biopsy on 01/10/2020 Physical Exam Vital Signs: Vital Signs: Last Vital Signs Temp 97.3 F 01/11/20 11:03 Pulse 95 01/11/20 11:03 Resp 20 01/11/20 12:39 BP 137/63 01/11/20 11:03 Pulse Ox 92 01/11/20 11:03 Body Mass Index 22.3 Const: General: cooperative Cardio: Heart sounds: no murmurs and no rubs : General: Yes no CVA tenderness Back/Spine/Pelvis: Back: no CVA tenderness Neuro: Motor exam (neuro): No Asterixis during motor activity present Assessment & Plan Assessment and plan (1) YESSICA (acute kidney injury): Problem details: 54 year old white female admitted to hospital with acute kidney injury on the backdrop of recent upper respiratory tract infection and question of underlined college vasc disease along with heavy NSAID use for the past several weeks s/p Kidney biopsy Prelim report suggestive of IF/ EM etc pending MPO positive [place]-3 NEgative Anti GM /ANCA pending Will pulse with Methylprednisone 1 gm IV daily x 3 pending full biopsy report and serology Anemia with sub capsular hematoma post biopsy Repeat HCT ordered DC IVF Currently non oliguric; No indication for dialysis DC [place] 01/12/2020: Discussed with pathologist. 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
[2020-01-11 14:21] LABS: Hematocrit 28.8 % (37-47); Mean Corpuscular HGB Conc 31.3 g/dl (31.0-35.0); Mean Corpuscular Hemoglobin 27.5 pg (27.0-33.0); Mean Corpuscular Volume 88.1 fL (80-98); Mean Platelet Volume 9.9 fL (9.4-12.3); Platelet Count 348 X10*3/uL (160-400); Red Blood Count 3.27 X10*6/uL (4.20-5.50); Red Cell Distribution Width 13.5 % (11.0-16.0); White Blood Count 11.8 X10*3/uL (4.8-10.8)
--- NOTE | 2020-01-11 18:39 | PC.NURSE ---
AUNDREA D/C'ED AT 1835. DTV 0035 01/12/20. WILL PASS ON TO ONCOMING RN.
[2020-01-12] VITALS (9 sets, daily range): BP systolic 152–190; BP diastolic 80–90; PULSE 54–65; RESP 16–20; TEMP 36.2–37; O2SAT 98–100
[2020-01-12] MEDS: hydrALAZINE HCl 20 MG/ML VIAL 5 MG IVPUSH (01:35)
[2020-01-12] MEDS: HYDROmorphone HCl 0.5 MG/0.5 ML SYRINGE IVPUSH ×5 (02:59→20:52)
--- NOTE | 2020-01-12 06:52 | PM.PNNEP ---
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
[2020-01-12 07:39] LABS: Hematocrit 28.8 % (37-47); Hemoglobin 9.2 g/dl (12.0-16.0); Mean Corpuscular HGB Conc 31.9 g/dl (31.0-35.0); Mean Corpuscular Hemoglobin 27.6 pg (27.0-33.0); Mean Corpuscular Volume 86.5 fL (80-98); Mean Platelet Volume 10.5 fL (9.4-12.3); Platelet Count 345 X10*3/uL (160-400); Red Blood Count 3.33 X10*6/uL (4.20-5.50); Red Cell Distribution Width 13.2 % (11.0-16.0); White Blood Count 11.7 X10*3/uL (4.8-10.8)
[2020-01-12] MEDS: carisoprodoL 350 MG TABLET PO (07:50)
[2020-01-12] MEDS: Lidocaine 4 % Patch ADH..PATCH 1 PATCH TRANSDERMA (07:52)
[2020-01-12] MEDS: 0.9 % Sodium Chloride Flush 3 ML SYRINGE IVFLUSH ×2 (07:52→16:04)
[2020-01-12 08:08] LABS: Anion Gap 18 (12-20); Blood Urea Nitrogen 73 mg/dL (9-16); Calcium 8.1 mg/dL (8.4-10.2); Carbon Dioxide 20 mmol/L (22-29); Chloride 100 mmol/L (96-108); Glucose Random 184 mg/dL (60-115); Potassium 4.6 mmol/l (3.3-5.1); Sodium 133 mmol/L (135-145)
[2020-01-12 08:09] LABS: Creatinine Clr Calc Pharmacy 12.6; Estimated Glomerular Filt Rate 9
[2020-01-12] MEDS: Fluticasone Propionate Nasal 16 GM SPRAY 1 SPRAY NOSTRIL-B (09:58)
--- NOTE | 2020-01-12 10:32 | PM.PNNEP ---
Subjective Subjective Principal diagnosis: YESSICA Interval history: YESSICA, s/p Kidney biopsy on 01/10/2020 Physical Exam Vital Signs: Vital Signs: Last Vital Signs Temp 97.1 F 01/12/20 07:30 Pulse 64 01/12/20 09:49 Resp 18 01/12/20 07:30 BP 152/80 H 01/12/20 09:49 Pulse Ox 100 01/12/20 07:30 Body Mass Index 22.3 Physical exam: Heent : Neck supple Cvs: rrr, [id number] , no murmur res: clear to auscultation ,no rhonchii or wheezing abd: no rebound or guarding ,nt, bs present. Left lateral back area pain ext pulses present , no cyanosis neuro: axo3 , nonfocal. Const: Other: Last Vital Signs Temp 97.6 F 01/12/20 02:41 Pulse 58 01/12/20 02:41 Resp 16 01/12/20 02:41 BP 167/90 H 01/12/20 05:09 Pulse Ox 98 01/12/20 02:41 Body Mass Index 22.3 General: cooperative Orientation/consciousness: oriented to person, oriented to place and oriented to time HENMT: Head: Yes normal to inspection Ears: hearing grossly normal bilaterally Mouth: oropharynx normal Eyes: General: appearance normal, both eyes and all related structures Neck: Neck: Yes supple Resp: Effort & Inspection: normal respiratory effort Auscultation: no rales Cardio: Other: Last Vital Signs Temp 97.6 F 01/12/20 02:41 Pulse 58 01/12/20 02:41 Resp 16 01/12/20 02:41 BP 167/90 H 01/12/20 05:09 Pulse Ox 98 01/12/20 02:41 Body Mass Index 22.3 Rate: regular rate Rhythm: regular rhythm Heart sounds: no murmurs and no rubs GI: Inspection: Yes normal to inspection Palpation (GI): Soft to palpation and nontender Auscultation: normal bowel sounds : General: Yes no CVA tenderness Back/Spine/Pelvis: Back: no CVA tenderness Thoracic/Lumbar Spine: thoracic and lumbar spine normal to inspection Skin: General skin exam: no rashes or lesions noted Neuro: General: oriented to person, oriented to place, oriented to time, tone normal and moves all extremities Motor exam (neuro): No Asterixis during motor activity present Assessment & Plan Assessment and plan (1) YESSICA (acute kidney injury): Problem details: 54 year old white female admitted to hospital with acute kidney injury on the backdrop of recent upper respiratory tract infection-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 Subcapsular hematoma after biopsy; hg stable. Receiving pulse solumedrol. Pharmacy cannot arrange for IV cylcophosphamide over the weekend. Will start instead oral cyclophosphamide 2 mg/kg/kpg=594 mg daily. Discussed risks/benefits with patient. Titrate cytoxan to keep WBC about 4-5. Pt anemic and may benefit from procrit. Status: Acute Assessment and Plan: 54 year old women admitted with YESSICA, UTI and CAP. She was recently treated with doxycycline for Upper respiratory infection. 1.Sepsis secondary to CAP: Sepsis seems to be resolved Chest imaging reviewed with the ID, patient is not short of breath or any new symptoms Urine culture negative-less likely UTI also. Will hold off on antibiotics 2.YESSICA is due to RPGN now biopsy proven; aggressive treatment with oral cytoxan and pulse and then oral steroids started 3.Normocytic anemia. Due to YESSICA-would benefit from starting RAIN if iron stores adequate. . Time Spent With Patient Time: Total time spent is greater than 50% in coordination of care (as documented) at patient's floor/unit and/or counseling patient: Procedures Abscess I/D Date of Service: 01/12/20
--- NOTE | 2020-01-12 12:45 | P.PNIM_ITS ---
Subjective Subjective Date of Service: 01/12/20 Interval History: Patient seen and examined at bedside patient was complaining of back pain at biopsy site Constitutional Constitutional: Reports fatigue and Reports weakness Cardiovascular Cardiovascular: Denies dyspnea Respiratory Respiratory: Denies dyspnea Gastrointestinal Gastrointestinal: Denies vomiting Musculoskeletal Musculoskeletal: Reports back pain Neurologic Neurologic: Reports weakness Endocrine Endocrine: Reports fatigue Physical Exam Vital Signs: Vital Signs: Last Vital Signs Temp 97.8 F 01/12/20 11:21 Pulse 56 01/12/20 11:21 Resp 18 01/12/20 11:21 BP 172/80 H 01/12/20 11:21 Pulse Ox 98 01/12/20 11:21 Body Mass Index 22.3 Physical exam: Heent : Neck supple Cvs: rrr, [id number] , no murmur res: clear to auscultation ,no rhonchii or wheezing abd: no rebound or guarding ,nt, bs present. Left lateral back area pain ext pulses present , no cyanosis neuro: axo3 , nonfocal. Const: Other: Last Vital Signs Temp 97.1 F 01/12/20 07:30 Pulse 64 01/12/20 09:49 Resp 18 01/12/20 07:30 BP 152/80 H 01/12/20 09:49 Pulse Ox 100 01/12/20 07:30 Body Mass Index 22.3 HENMT: Mouth: oropharynx normal Cardio: Other: Last Vital Signs Temp 97.1 F 01/12/20 07:30 Pulse 64 01/12/20 09:49 Resp 18 01/12/20 07:30 BP 152/80 H 01/12/20 09:49 Pulse Ox 100 01/12/20 07:30 Body Mass Index 22.3 Objective Data Current Medications Generic Name Dose Route Start Last Admin Trade Name Freq PRN Reason Stop Dose Admin Acetaminophen/Butalbital/Caffeine 1 tab 01/07/20 21:00 01/12/20 09:57 Butalb/Acetamin/Caff 50/325/40 1 Tab Tablet PO 1 tab TID LINDSAY Administration Albuterol Sulfate 2 puff 01/07/20 16:38 Albuterol Sulfate 90 Mcg 8 Gm Inhaler INHALE Q6H PRN Wheezing Carisoprodol 350 mg 01/07/20 16:38 01/12/20 07:50 Carisoprodol 350 Mg Tablet PO 350 mg TID PRN Administration muscle pain Fluticasone Propionate 1 spray 01/07/20 21:00 01/12/20 09:58 Fluticasone Propionate Nasal 16 Gm [place] NOSTRIL-B 1 spray BID LINDSAY Administration Hydromorphone HCl 0.5 mg 01/10/20 12:42 01/12/20 12:11 Hydromorphone Hcl 0.5 Mg/0.5 Ml Syringe IVPUSH 0.5 mg Q4H PRN Administration Pain and Fever Methylprednisolone Sodium 116 mls @ 100 mls/hr 01/11/20 11:15 01/11/20 13:47 Succinate 1,000 mg/ Sodium IV 01/13/20 10:10 Infused Chloride DAILY COUNTS INCLUDE 234 BEDS AT THE [facility] Infusion Lidocaine 1 patch 01/11/20 09:00 01/12/20 07:52 Lidocaine 4 % Patch Adh..Patch TRANSDERMA 1 patch DAILY LINDSAY Administration Protocol Non-Form Med ( 6 each 01/12/20 12:00 Cyclophospamide 25mg PO Tab) DAILY LINDSAY Ondansetron HCl 4 mg 01/10/20 12:41 01/10/20 12:59 Ondansetron Hcl 4 Mg/2 Ml Vial IVPUSH 4 mg Q8H PRN Administration Vomiting Sodium Chloride 3 ml 01/07/20 16:38 01/12/20 07:52 0.9 % Sodium Chloride Flush 3 Ml Syringe IVFLUSH 3 ml QSHIFT LINDSAY Administration Labs CBC & Chem 7: 01/12/20 06:20 01/12/20 06:20 Microbiology Microbiology Results: Microbiology 01/07/20 06:54 Blood - Venous Blood Culture - Final No growth after 5 days. 01/07/20 06:54 Blood - Venous Blood Culture - Final No growth after 5 days. 01/07/20 08:49 Urine clean catch - Clean Catch Midstream Urine Culture - Final No growth. Assessment and Plan (1) YESSICA (acute kidney injury): Status: Acute Assessment and Plan: 54 year old women admitted with YESSICA, UTI and CAP. She was recently treated with doxycycline for Upper respiratory infection . 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 received IV fluids creatinine still around 5 nephrology following recommended starting on cyclophosphamide monitor CBC closely for leukopenia while on cyclophosphamide continue pulse steroids for total 3 days avoid nephrotoxins monitor kidney functions closely subcapsular renal hematoma status post biopsy H&H stable Sepsis secondary to CAP resolved Urine culture negative-less likely UTI also. antibiotic stopped . Normocytic anemia. likely anemia secondary to chronic disease monitor CBC DVT prophylaxis Venodyne given renal hematoma .
[2020-01-12] MEDS: methylPREDNISolone Sod Succ 1,000 MG in 0.9 % Sodium Chloride 100 ML 100 MG IV (12:48)
[2020-01-12] MEDS: ondansetron HCL 4 MG/2 ML VIAL IVPUSH (13:59)
[2020-01-12 14:11] LABS: Anti Glomerular Basement Memb <1.0 AI
[2020-01-12] MEDS: amLODIPine Besylate 5 MG TABLET PO (14:44)
[2020-01-13] VITALS (8 sets, daily range): BP systolic 149–188; BP diastolic 78–93; PULSE 54–72; RESP 18–20; TEMP 36.1–36.6; O2SAT 96–100
[2020-01-13] MEDS: 0.9 % Sodium Chloride Flush 3 ML SYRINGE IVFLUSH ×4 (00:21→21:33)
[2020-01-13] MEDS: HYDROmorphone HCl 0.5 MG/0.5 ML SYRINGE IVPUSH ×6 (01:12→21:32)
[2020-01-13] MEDS: carisoprodoL 350 MG TABLET PO ×3 (01:13→18:39)
[2020-01-13] MEDS: hydrALAZINE HCl 20 MG/ML VIAL 5 MG IVPUSH (01:14)
--- NOTE | 2020-01-13 05:52 | PC.NURSE ---
P: Persistent elevated BP, BP 188/92, patient c/o muscle spasm to lower back, pain /, requesting carisoprodol for pain(which was d/c'd). I: Assessment; vitals; MD notified, stat IV hydralazine 5 mg ordered/given. PRN Dilaudid given as well. E: Patient a/o x4, BP improve to 179/88, 163/84. PRN carisoprodol ordered and given. Patient now resting in no distress. Patient slept in 3-4hrs increments. Will continue to monitor. Off note; patient received first dose of cyclophosphamide as ordered on 01/12/20, patient annel med. Proper technique followed to adm medication. Director Veterinary-Steve witnessed adm. Medication capsule, medicine cup, and gloves disposed into yellow bin. Yellow bins in patient's room. Patient educated to flush the toilet twice after each use. Will continue to monitor.
[2020-01-13 06:36] LABS: MANUAL DIFF FLAG NO
[2020-01-13 06:44] LABS: Basophils Percent Auto 0.1 % (0-2); Hematocrit 27.3 % (37-47); Hemoglobin 8.9 g/dl (12.0-16.0); Imm Gran Abs Auto 0.13 X10*3/uL (0.00-0.03); Imm Gran Pct Auto 1.1 % (0.0-0.4); Lymphocytes Absolute Auto 0.7 X10*3/uL (1.2-4.9); Lymphocytes Percent Auto 6.4 % (20-40); Mean Corpuscular HGB Conc 32.6 g/dl (31.0-35.0); Mean Corpuscular Hemoglobin 27.6 pg (27.0-33.0); Mean Corpuscular Volume 84.5 fL (80-98); Mean Platelet Volume 10.1 fL (9.4-12.3); Monocytes Absolute Auto 0.6 X10*3/uL (0.1-1.2); Monocytes Percent Auto 5.2 % (2-11); Neutrophils Percent Auto 87.2 % (45-73); Platelet Count 312 X10*3/uL (160-400); Red Blood Count 3.23 X10*6/uL (4.20-5.50); Red Cell Distribution Width 13.2 % (11.0-16.0); White Blood Count 11.5 X10*3/uL (4.8-10.8)
[2020-01-13 07:15] LABS: Anion Gap 19 (12-20); Carbon Dioxide 19 mmol/L (22-29); Chloride 100 mmol/L (96-108); Glucose Random 148 mg/dL (60-115); Potassium 4.5 mmol/l (3.3-5.1); Sodium 133 mmol/L (135-145)
[2020-01-13 07:33] LABS: Blood Urea Nitrogen 81 mg/dL (9-16); Creatinine Clr Calc Pharmacy 12.8; Estimated Glomerular Filt Rate 9
[2020-01-13 07:40] LABS: Calcium 7.8 mg/dL (8.4-10.2)
[2020-01-13] MEDS: Lidocaine 4 % Patch ADH..PATCH 1 PATCH TRANSDERMA (09:10)
[2020-01-13] MEDS: amLODIPine Besylate 5 MG TABLET PO (09:12)
[2020-01-13] MEDS: methylPREDNISolone Sod Succ 1,000 MG in 0.9 % Sodium Chloride 100 ML 100 MG IV (10:24)
--- NOTE | 2020-01-13 13:13 | HO.PM.IMPN ---
Subjective Subjective Date of Service: 01/12/20 Interval History: Patient seen and examined at bedside patient was complaining of back pain at biopsy site Constitutional Constitutional: Reports fatigue and Reports weakness Cardiovascular Cardiovascular: Denies dyspnea Respiratory Respiratory: Denies dyspnea Gastrointestinal Gastrointestinal: Denies vomiting Musculoskeletal Musculoskeletal: Reports back pain Neurologic Neurologic: Reports weakness Endocrine Endocrine: Reports fatigue Physical Exam Vital Signs: Vital Signs: Last Vital Signs Temp 97.9 F 01/13/20 11:15 Pulse 70 01/13/20 11:15 Resp 18 01/13/20 11:15 BP 153/80 H 01/13/20 11:15 Pulse Ox 98 01/13/20 11:15 Body Mass Index 22.3 Physical exam: Heent : Neck supple Cvs: [id number], [id number] , no murmur res: clear to auscultation ,no rhonchii or wheezing abd: no rebound or guarding ,nt, bs present. Left lateral back area pain ext pulses present , no cyanosis neuro: axo3 , nonfocal. Const: General: no acute distress HENMT: Mouth: oropharynx normal Resp: Effort & Inspection: normal respiratory effort Auscultation: clear to auscultation bilaterally Cardio: Jugular venous distension: no JVD Heart sounds: S1 normal heart sound present and S2 normal heart sound present GI: Inspection: Yes normal to inspection Auscultation: normal bowel sounds : Other: mild tenderness at biopsy site Neuro: Motor exam (neuro): No Asterixis during motor activity present Objective Data Current Medications Generic Name Dose Route Start Last Admin Trade Name Freq PRN Reason Stop Dose Admin Acetaminophen/Butalbital/Caffeine 1 tab 01/07/20 21:00 01/13/20 09:11 Butalb/Acetamin/Caff 50/325/40 1 Tab Tablet PO 1 tab TID LINDSAY Administration Albuterol Sulfate 2 puff 01/07/20 16:38 Albuterol Sulfate 90 Mcg 8 Gm Inhaler INHALE Q6H PRN Wheezing Amlodipine Besylate 5 mg 01/13/20 09:00 01/13/20 09:12 Amlodipine Besylate 5 Mg Tablet PO 5 mg DAILY LINDSAY Administration Protocol Carisoprodol 350 mg 01/13/20 00:58 01/13/20 10:36 Carisoprodol 350 Mg Tablet PO 350 mg TID PRN Administration Muscle Spasm Fluticasone Propionate 1 spray 01/07/20 21:00 01/13/20 10:37 Fluticasone Propionate Nasal 16 Gm [place] NOSTRIL-B Not Given BID LINDSAY Hydromorphone HCl 0.5 mg 01/10/20 12:42 01/13/20 10:23 Hydromorphone Hcl 0.5 Mg/0.5 Ml Syringe IVPUSH 0.5 mg Q4H PRN Administration Pain and Fever Lidocaine 1 patch 01/11/20 09:00 01/13/20 09:10 Lidocaine 4 % Patch Adh..Patch TRANSDERMA 1 patch DAILY LINDSAY Administration Protocol Non-Form Med ( 6 each 01/12/20 18:00 01/12/20 17:20 Cyclophospamide 25mg PO 6 each Tab) DAILY@1800 LINDSAY Administration Ondansetron HCl 4 mg 01/10/20 12:41 01/12/20 13:59 Ondansetron Hcl 4 Mg/2 Ml Vial IVPUSH 4 mg Q8H PRN Administration Vomiting Sodium Chloride 3 ml 01/07/20 16:38 01/13/20 09:13 0.9 % Sodium Chloride Flush 3 Ml Syringe IVFLUSH 3 ml QSHIFT LINDSAY Administration Labs CBC & Chem 7: 01/13/20 05:48 01/13/20 05:48 Microbiology Microbiology Results: Microbiology 01/07/20 06:54 Blood - Venous Blood Culture - Final No growth after 5 days. 01/07/20 06:54 Blood - Venous Blood Culture - Final No growth after 5 days. 01/07/20 08:49 Urine clean catch - Clean Catch Midstream Urine Culture - Final No growth. Assessment and Plan (1) YESSICA (acute kidney injury): Status: Acute Assessment and Plan: 54 year old women admitted with YESSICA, UTI and CAP. 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 received IV fluids creatinine slowly trending down 4.5 today Nephrology following started on cyclophosphamide monitor CBC closely for leukopenia while on cyclophosphamide Continue pulse steroids D3 for total 3 days avoid nephrotoxins monitor kidney functions closely Subcapsular renal hematoma status post biopsy H&H stable Sepsis secondary to CAP resolved Urine culture negative-less likely UTI also. antibiotic stopped . fibromyalgia continue home medication Normocytic anemia. likely anemia secondary to chronic disease monitor CBC Hypertension new started on amlodipine monitor blood pressure DVT prophylaxis Venodyne given renal hematoma .
--- NOTE | 2020-01-13 14:04 | P.PNNP_ITS ---
Subjective Subjective Principal diagnosis: YESSICA Interval history: Patient seen and examined at bedside patient was complaining of back pain and leg pain Physical Exam Vital Signs: Vital Signs: Last Vital Signs Temp 97.9 F 01/13/20 11:15 Pulse 70 01/13/20 11:15 Resp 18 01/13/20 11:15 BP 153/80 H 01/13/20 11:15 Pulse Ox 98 01/13/20 11:15 Body Mass Index 22.3 Physical exam: Heent : Neck supple Cvs: rrr, [id number] , no murmur res: clear to auscultation ,no rhonchii or wheezing abd: no rebound or guarding ,nt, bs present. Left lateral back area pain ext pulses present , no cyanosis neuro: axo3 , nonfocal. Const: Other: Last Vital Signs Temp 97.9 F 01/13/20 11:15 Pulse 70 01/13/20 11:15 Resp 18 01/13/20 11:15 BP 153/80 H 01/13/20 11:15 Pulse Ox 98 01/13/20 11:15 Body Mass Index 22.3 General: cooperative and no acute distress Orientation/consciousness: oriented to person, oriented to place and oriented to time HENMT: Head: Yes normal to inspection Ears: hearing grossly normal bilaterally Mouth: oropharynx normal Eyes: General: appearance normal, both eyes and all related structures Neck: Neck: Yes supple Resp: Effort & Inspection: normal respiratory effort Auscultation: clear to auscultation bilaterally and no rales Cardio: Other: Last Vital Signs Temp 97.9 F 01/13/20 11:15 Pulse 70 01/13/20 11:15 Resp 18 01/13/20 11:15 BP 153/80 H 01/13/20 11:15 Pulse Ox 98 01/13/20 11:15 Body Mass Index 22.3 Jugular venous distension: no JVD Rate: regular rate Rhythm: regular rhythm Heart sounds: S1 normal heart sound present, S2 normal heart sound p resent, no murmurs and no rubs GI: Inspection: Yes normal to inspection Palpation (GI): Soft to palpation and nontender Auscultation: normal bowel sounds : General: Yes no CVA tenderness Back/Spine/Pelvis: Back: no CVA tenderness Thoracic/Lumbar Spine: thoracic and lumbar spine normal to inspection Skin: General skin exam: no rashes or lesions noted Neuro: General: oriented to person, oriented to place, oriented to time, tone normal and moves all extremities Motor exam (neuro): No Asterixis during motor activity present Assessment & Plan Assessment and plan (1) YESSICA (acute kidney injury): Status: Acute Assessment and Plan: 54 year old women admitted with YESSICA, UTI and CAP. 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 Creat 4.9 -down slightly from yesterday. Hypertensive. 1. Pauci immune ANCA positive GN: appears to be limited to kidney though cannot fully rule out that the CAP was not lung vasculitis; diffuse myalgias 2. HTN: new and part of nephritic presentation 3. Anemia 4. Hx of fibromyalgia and diffuse pain 5. Edema Recommend: Single dose IV lasix 80 mg now Increase amlodipine to 10 mg daily Cyclophosphamide 150 mg daily Prednisone 70 mg daily ( 1mg/kg) starting tomorrow Goal BP 130/80: may need additional agents: suggest labetolol . . Procedures Abscess I/D Date of Service: 01/13/20
[2020-01-13] MEDS: Furosemide 40 MG/4 ML VIAL IVPUSH (15:09)
[2020-01-14] VITALS (8 sets, daily range): BP systolic 138–172; BP diastolic 68–96; PULSE 64–75; RESP 16–18; TEMP 36–36.4; O2SAT 98–100
[2020-01-14] MEDS: HYDROmorphone HCl 0.5 MG/0.5 ML SYRINGE IVPUSH ×4 (00:50→14:42)
[2020-01-14] MEDS: carisoprodoL 350 MG TABLET PO ×3 (02:42→20:34)
[2020-01-14 06:38] LABS: MANUAL DIFF FLAG NO
[2020-01-14 06:48] LABS: Basophils Percent Auto 0.1 % (0-2); Hematocrit 29.5 % (37-47); Hemoglobin 9.6 g/dl (12.0-16.0); Imm Gran Abs Auto 0.23 X10*3/uL (0.00-0.03); Imm Gran Pct Auto 1.8 % (0.0-0.4); Lymphocytes Absolute Auto 0.8 X10*3/uL (1.2-4.9); Lymphocytes Percent Auto 6.3 % (20-40); Mean Corpuscular HGB Conc 32.5 g/dl (31.0-35.0); Mean Corpuscular Hemoglobin 27.9 pg (27.0-33.0); Mean Corpuscular Volume 85.8 fL (80-98); Mean Platelet Volume 10.5 fL (9.4-12.3); Monocytes Absolute Auto 1.1 X10*3/uL (0.1-1.2); Monocytes Percent Auto 8.4 % (2-11); Neutrophils Absolute Auto 10.7 X10*3/uL (2.0-8.3); Neutrophils Percent Auto 83.4 % (45-73); Platelet Count 411 X10*3/uL (160-400); Red Blood Count 3.44 X10*6/uL (4.20-5.50); Red Cell Distribution Width 13.2 % (11.0-16.0); White Blood Count 12.8 X10*3/uL (4.8-10.8)
[2020-01-14 07:47] LABS: Anion Gap 17 (12-20); Blood Urea Nitrogen 88 mg/dL (9-16); Calcium 7.8 mg/dL (8.4-10.2); Carbon Dioxide 20 mmol/L (22-29); Chloride 96 mmol/L (96-108); Creatinine Clr Calc Pharmacy 13.6; Estimated Glomerular Filt Rate 10; Glucose Random 114 mg/dL (60-115); Sodium 129 mmol/L (135-145)
[2020-01-14] MEDS: Lidocaine 4 % Patch ADH..PATCH 1 PATCH TRANSDERMA (09:44)
[2020-01-14] MEDS: 0.9 % Sodium Chloride Flush 3 ML SYRINGE IVFLUSH ×3 (09:44→20:35)
[2020-01-14] MEDS: predniSONE 20 MG TABLET 60 MG PO (09:46)
[2020-01-14] MEDS: amLODIPine Besylate 5 MG TABLET 10 MG PO (09:46)
[2020-01-14] MEDS: ondansetron HCL 4 MG/2 ML VIAL IVPUSH (10:01)
--- NOTE | 2020-01-14 11:21 | PM.PNNEP ---
Subjective Subjective Principal diagnosis: YESSICA Interval history: Patient seen and examined Physical Exam Vital Signs: Vital Signs: Last Vital Signs Temp 97.6 F 01/14/20 08:00 Pulse 64 01/14/20 09:46 Resp 18 01/14/20 08:00 BP 152/73 H 01/14/20 09:46 Pulse Ox 99 01/14/20 08:00 Body Mass Index 22.3 Const: General: comfortable Orientation/consciousness: oriented to person, oriented to place and oriented to time Neck: Neck: Yes supple Resp: Auscultation: clear to auscultation bilaterally Cardio: Heart sounds: S1 normal heart sound present and S2 normal heart sound present GI: Inspection: Yes normal to inspection Palpation (GI): Soft to palpation and nontender Neuro: General: oriented to person, oriented to place and oriented to time Extrem: General: Yes edema Assessment & Plan Assessment and plan (1) YESSICA (acute kidney injury): Status: Acute (2) 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
--- NOTE | 2020-01-14 14:41 | P.PNIM_ITS ---
Subjective Subjective Date of Service: 01/14/20 Interval History: patient seen examined for acute kidney injury patient complaining of mild nausea and back pain. Review of Systems General no headache, no dizziness no fever chills. CVS no chest pain, no palpitation. Respiratory no cough , no sputum production, no respiratory distress. Gastrointestinal nausea, no vomiting Physical Exam Vital Signs: Vital Signs: Last Vital Signs Temp 97.3 F 01/14/20 12:00 Pulse 72 01/14/20 12:00 Resp 18 01/14/20 12:00 BP 151/78 H 01/14/20 12:00 Pulse Ox 100 01/14/20 12:00 Body Mass Index 22.3 General no acute distress. Neck supple no JVD. CVS regular rate rhythm, Respiratory lungs clear to auscultation, no respiratory distress, Gastrointestinal abdomen soft, nontender, bowel sounds audible Back mild tenderness at biopsy site, no swelling Extremities no clubbing cyanosis or edema. Neuro nonfocal Skin no rash Objective Data Current Medications Generic Name Dose Route Start Last Admin Trade Name Freq PRN Reason Stop Dose Admin Acetaminophen/Butalbital/Caffeine 1 tab 01/07/20 21:00 01/14/20 09:46 Butalb/Acetamin/Caff 50/325/40 1 Tab Tablet PO 1 tab TID LINDSAY Administration Albuterol Sulfate 2 puff 01/07/20 16:38 Albuterol Sulfate 90 Mcg 8 Gm Inhaler INHALE Q6H PRN Wheezing Amlodipine Besylate 10 mg 01/14/20 09:15 01/14/20 09:46 Amlodipine Besylate 5 Mg Tablet PO 10 mg DAILY LINDSAY Administration Protocol Carisoprodol 350 mg 01/13/20 00:58 01/14/20 13:02 Carisoprodol 350 Mg Tablet PO 350 mg TID PRN Administration Muscle Spasm Fluticasone Propionate 1 spray 01/07/20 21:00 01/14/20 09:51 Fluticasone Propionate Nasal 16 Gm [place] NOSTRIL-B Not Given BID LINDSAY Hydromorphone HCl 0.5 mg 01/10/20 12:42 01/14/20 10:00 Hydromorphone Hcl 0.5 Mg/0.5 Ml Syringe IVPUSH 0.5 mg Q4H PRN Administration Pain and Fever Lidocaine 1 patch 01/11/20 09:00 01/14/20 09:44 Lidocaine 4 % Patch Adh..Patch TRANSDERMA 1 patch DAILY LINDSAY Administration Protocol Non-Form Med ( 6 each 01/14/20 09:00 01/14/20 09:49 Cyclophospamide 25mg PO 6 each Tab) DAILY@0900 LINDSAY Administration Ondansetron HCl 4 mg 01/10/20 12:41 01/14/20 10:01 Ondansetron Hcl 4 Mg/2 Ml Vial IVPUSH 4 mg Q8H PRN Administration Vomiting Prednisone 60 mg 01/14/20 09:00 01/14/20 09:46 Prednisone 20 Mg Tablet PO 60 mg DAILY LINDSAY Administration Sodium Chloride 3 ml 01/07/20 16:38 01/14/20 09:44 0.9 % Sodium Chloride Flush 3 Ml Syringe IVFLUSH 3 ml QSHIFT LINDSAY Administration Labs CBC & Chem 7: 01/14/20 05:56 01/14/20 05:56 Microbiology Microbiology Results: Microbiology 01/07/20 06:54 Blood - Venous Blood Culture - Final No growth after 5 days. 01/07/20 06:54 Blood - Venous Blood Culture - Final No growth after 5 days. 01/07/20 08:49 Urine clean catch - Clean Catch Midstream Urine Culture - Final No growth. 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 received IV fluids creatinine trending down slowly, continue cyclophosphamide and prednisone as per Nephrology, follow CBC closely for leukopenia since on cyclophosphamide will add Prilosec for heartburn and acidity while on steroid monitor kidney functions closely Subcapsular renal hematoma status post biopsy H&H stable Sepsis felt to have sepsis secondary to tachycardia and leukocytosis but symptom seems to be related to acute kidney injury no sepsis or infection Fibromyalgia continue Soma, and Fioricet (home medication.) Normocytic anemia. likely related to renal disease, hematocrit stable continue to follow CBC Hypertension BP elevated on amlodipine 5 mg therefore dose of amlodipine increased to 10 mg continue to monitor blood pressure closely if BP remains elevated will add labetalol. DVT prophylaxis on compression device.
[2020-01-14] MEDS: Omeprazole 20 MG CAPSULE.DR PO (15:12)
[2020-01-14] MEDS: oxyCODONE HCl Immed Release 5 MG TABLET PO (20:34)
[2020-01-15] VITALS (9 sets, daily range): BP systolic 128–148; BP diastolic 62–83; PULSE 61–77; RESP 16–22; TEMP 36.1–36.9; O2SAT 94–99
[2020-01-15] MEDS: oxyCODONE HCl Immed Release 5 MG TABLET PO ×4 (03:06→22:17)
[2020-01-15] MEDS: carisoprodoL 350 MG TABLET PO ×3 (06:01→22:17)
[2020-01-15] MEDS: Omeprazole 20 MG CAPSULE.DR PO (06:01)
[2020-01-15 06:36] LABS: Basophils Percent Auto 0.1 % (0-2); Eosinophils Percent Auto 0.2 % (0-4); Hematocrit 30.1 % (37-47); Imm Gran Abs Auto 0.13 X10*3/uL (0.00-0.03); Lymphocytes Absolute Auto 1.4 X10*3/uL (1.2-4.9); Lymphocytes Percent Auto 10.1 % (20-40); MANUAL DIFF FLAG SCAN; Mean Corpuscular HGB Conc 33.2 g/dl (31.0-35.0); Mean Corpuscular Hemoglobin 27.9 pg (27.0-33.0); Mean Corpuscular Volume 83.8 fL (80-98); Mean Platelet Volume 10.6 fL (9.4-12.3); Monocytes Absolute Auto 1.8 X10*3/uL (0.1-1.2); Monocytes Percent Auto 13.6 % (2-11); Neutrophils Absolute Auto 10.1 X10*3/uL (2.0-8.3); Platelet Count 415 X10*3/uL (160-400); Red Blood Count 3.59 X10*6/uL (4.20-5.50); Red Cell Distribution Width 13.3 % (11.0-16.0); SCAN SMEAR FLAG 1; White Blood Count 13.4 X10*3/uL (4.8-10.8)
[2020-01-15 07:26] LABS: Anion Gap 16 (12-20); Blood Urea Nitrogen 94 mg/dL (9-16); Calcium 7.6 mg/dL (8.4-10.2); Carbon Dioxide 19 mmol/L (22-29); Chloride 100 mmol/L (96-108); Creatinine Clr Calc Pharmacy 14.5; Estimated Glomerular Filt Rate 11; Glucose Random 124 mg/dL (60-115); Potassium 4.2 mmol/l (3.3-5.1); Sodium 131 mmol/L (135-145)
[2020-01-15] MEDS: Lidocaine 4 % Patch ADH..PATCH 1 PATCH TRANSDERMA (07:37)
[2020-01-15] MEDS: predniSONE 20 MG TABLET 60 MG PO (07:37)
[2020-01-15] MEDS: 0.9 % Sodium Chloride Flush 3 ML SYRINGE IVFLUSH ×2 (07:37→15:55)
[2020-01-15] MEDS: amLODIPine Besylate 5 MG TABLET 10 MG PO (07:41)
[2020-01-15 08:04] LABS: SLIDE REVIEW VERIFIED
[2020-01-15] MEDS: Labetalol HCL 100 MG TABLET PO ×2 (08:57→21:08)
[2020-01-15 13:32] LABS: Myeloperoxidase Antibody 2.1 AI; Proteinase 3 PR3 Antibodies <1.0 AI
--- NOTE | 2020-01-15 14:25 | P.PNIM_ITS ---
Subjective Subjective Date of Service: 01/15/20 Interval History: patient very concerned about her facial and leg swelling, complaining of abdominal cramping, lower back discomfort, concern about side effects of prednisone and cyclophosphamide, otherwise denies any nausea ,vomiting, stools more formed. Review of Systems General no headache , no dizziness,no fever chills, complaining of facial and lower extremity puffiness. CVS no chest pain, no palpitation. Respiratory no cough, no shortness of breath Gastrointestinal abdominal cramping and nausea Physical Exam Vital Signs: Vital Signs: Last Vital Signs Temp 97.0 F 01/15/20 12:00 Pulse 68 01/15/20 12:00 Resp 18 01/15/20 12:00 BP 133/62 01/15/20 12:00 Pulse Ox 94 01/15/20 12:00 Body Mass Index 22.3 General patient resting comfortably in no acute distress. Neck is supple no JVD. CVS regular rate rhythm, Respiratory lungs clear to auscultation, no respiratory distress, no wheeze, no rhonchi. Gastrointestinal abdomen soft, nontender, bowel sounds audible, no no guarding , no rigidity. Extremities no clubbing cyanosis or edema. Neuro nonfocal patient moving all 4 extremity speech clear. Skin no rash Objective Data Current Medications Generic Name Dose Route Start Last Admin Trade Name Freq PRN Reason Stop Dose Admin Acetaminophen/Butalbital/Caffeine 1 tab 01/07/20 21:00 01/15/20 07:37 Butalb/Acetamin/Caff 50/325/40 1 Tab Tablet PO 1 tab TID [facility] Administration Albuterol Sulfate 2 puff 01/07/20 16:38 Albuterol Sulfate 90 Mcg 8 Gm Inhaler INHALE Q6H PRN Wheezing Amlodipine Besylate 10 mg 01/14/20 09:15 01/15/20 07:41 Amlodipine Besylate 5 Mg Tablet PO 10 mg DAILY [facility] Administration Protocol Carisoprodol 350 mg 01/13/20 00:58 01/15/20 13:45 Carisoprodol 350 Mg Tablet PO 350 mg TID PRN Administration Muscle Spasm Fluticasone Propionate 1 spray 01/07/20 21:00 01/15/20 07:42 Fluticasone Propionate Nasal 16 Gm Hye NOSTRIL-B Not Given BID [facility] Labetalol HCl 100 mg 01/15/20 09:00 01/15/20 08:57 Labetalol Hcl 100 Mg Tablet PO 100 mg BID LINDSAY Administration Protocol Lidocaine 1 patch 01/11/20 09:00 01/15/20 07:37 Lidocaine 4 % Patch Adh..Patch TRANSDERMA 1 patch DAILY LINDSAY Administration Protocol Non-Form Med ( 6 each 01/14/20 09:00 01/15/20 08:57 Cyclophospamide 25mg PO 6 each Tab) DAILY@0900 LINDSAY Administration Omeprazole 20 mg 01/14/20 15:00 01/15/20 06:01 Omeprazole 20 Mg Capsule.Dr PO 20 mg DAILY@0630 [facility] Administration Ondansetron HCl 4 mg 01/10/20 12:41 01/14/20 10:01 Ondansetron Hcl 4 Mg/2 Ml Vial IVPUSH 4 mg Q8H PRN Administration Vomiting Oxycodone HCl 5 mg 01/14/20 14:56 01/15/20 08:57 Oxycodone Hcl Immed Release 5 Mg Tablet PO 5 mg Q6H PRN Administration severe pain Prednisone 60 mg 01/14/20 09:00 01/15/20 07:37 Prednisone 20 Mg Tablet PO 60 mg DAILY LINDSAY Administration Sodium Chloride 3 ml 01/07/20 16:38 01/15/20 07:37 0.9 % Sodium Chloride Flush 3 Ml Syringe IVFLUSH 3 ml QSHIFT LINDSAY Administration Labs CBC & Chem 7: 01/15/20 05:31 01/15/20 05:31 Microbiology Microbiology Results: Microbiology 01/07/20 06:54 Blood - Venous Blood Culture - Final No growth after 5 days. 01/07/20 06:54 Blood - Venous Blood Culture - Final No growth after 5 days. 01/07/20 08:49 Urine clean catch - Clean Catch Midstream Urine Culture - Final No growth. 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 patient placed on cyclophosphamide and prednisone as per Nephrology, creatinine gradually trending down continue Prilosec for heartburn and acidity while on steroid monitor kidney functions closely discussed in detail regarding side effect of prednisone and cyclophosphamide including facial puffiness, support and reassurance provided. will use oxycodone for pain and added cold and hot packs. will discuss with Nephrology regarding discharge planning. Subcapsular renal hematoma status post biopsy H&H stable . Sepsis felt to have sepsis secondary to tachycardia and leukocytosis but symptom seems to be related to acute kidney injury no sepsis or infection Fibromyalgia continue Soma, and Fioricet (home medication.) Normocytic anemia. likely related to renal disease, hematocrit stable continue to follow CBC Hypertension BP Improved with addition of labetalol 100 mg b.i.d., continue amlodipine 10 mg daily, follow BP closely DVT prophylaxis on compression device.
--- NOTE | 2020-01-15 14:41 | PM.PNNEP ---
Subjective Subjective Date of Service: 01/15/20 Principal diagnosis: YESSICA Interval history: seen and examined complains of pain denies nausea, vomiting, shortness of breath Physical Exam Vital Signs: Vital Signs: Last Vital Signs Temp 97.0 F 01/15/20 12:00 Pulse 68 01/15/20 12:00 Resp 18 01/15/20 12:00 BP 133/62 01/15/20 12:00 Pulse Ox 94 01/15/20 12:00 Body Mass Index 22.3 Const: General: comfortable Orientation/consciousness: oriented to person, oriented to place and oriented to time Neck: Neck: Yes supple Resp: Auscultation: clear to auscultation bilaterally Cardio: Heart sounds: S1 normal heart sound present and S2 normal heart sound present GI: Palpation (GI): Soft to palpation and nontender Neuro: General: oriented to person, oriented to place and oriented to time Extrem: General: Yes edema Assessment & Plan Assessment and plan (1) YESSICA (acute kidney injury): Status: Acute (2) 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 (3) Hyponatremia: Status: Acute Assessment and Plan: kidney function improving stable Hb 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
[2020-01-16] MEDS: 0.9 % Sodium Chloride Flush 3 ML SYRINGE IVFLUSH ×2 (01:42→08:46)
[2020-01-16 03:40] VITALS: BP 142/71; PULSE 78; RESP 18; TEMP 36.5; O2SAT 99
[2020-01-16] MEDS: Omeprazole 20 MG CAPSULE.DR PO (05:18)
[2020-01-16] MEDS: oxyCODONE HCl Immed Release 5 MG TABLET PO (05:19)
[2020-01-16 06:19] LABS: Basophils Percent Auto 0.1 % (0-2); Eosinophils Absolute Auto 0.2 X10*3/uL (0.0-0.4); Eosinophils Percent Auto 1.5 % (0-4); Hematocrit 28.1 % (37-47); Hemoglobin 9.2 g/dl (12.0-16.0); Imm Gran Abs Auto 0.15 X10*3/uL (0.00-0.03); Lymphocytes Absolute Auto 2.7 X10*3/uL (1.2-4.9); Lymphocytes Percent Auto 17.5 % (20-40); MANUAL DIFF FLAG SCAN; Mean Corpuscular HGB Conc 32.7 g/dl (31.0-35.0); Mean Corpuscular Hemoglobin 27.6 pg (27.0-33.0); Mean Corpuscular Volume 84.4 fL (80-98); Mean Platelet Volume 10.5 fL (9.4-12.3); Monocytes Absolute Auto 2.1 X10*3/uL (0.1-1.2); Monocytes Percent Auto 13.5 % (2-11); Neutrophils Absolute Auto 10.2 X10*3/uL (2.0-8.3); Neutrophils Percent Auto 66.4 % (45-73); Platelet Count 360 X10*3/uL (160-400); Red Blood Count 3.33 X10*6/uL (4.20-5.50); Red Cell Distribution Width 13.7 % (11.0-16.0); SCAN SMEAR FLAG 1; White Blood Count 15.3 X10*3/uL (4.8-10.8)
[2020-01-16 06:51] LABS: Anion Gap 17 (12-20); Blood Urea Nitrogen 93 mg/dL (9-16); Calcium 7.2 mg/dL (8.4-10.2); Carbon Dioxide 19 mmol/L (22-29); Chloride 102 mmol/L (96-108); Creatinine Clr Calc Pharmacy 15.3; Estimated Glomerular Filt Rate 11; Glucose Random 122 mg/dL (60-115); Potassium 3.6 mmol/l (3.3-5.1); Sodium 134 mmol/L (135-145)
[2020-01-16 07:11] LABS: SLIDE REVIEW VERIFIED
[2020-01-16 07:30] VITALS: BP 155/66; PULSE 67; RESP 18; TEMP 36.8; O2SAT 98
[2020-01-16] MEDS: carisoprodoL 350 MG TABLET PO (08:44)
[2020-01-16] MEDS: Labetalol HCL 100 MG TABLET PO (08:44)
[2020-01-16] MEDS: predniSONE 20 MG TABLET 60 MG PO (08:45)
[2020-01-16] MEDS: amLODIPine Besylate 5 MG TABLET 10 MG PO (08:45)
[2020-01-16] MEDS: Lidocaine 4 % Patch ADH..PATCH 1 PATCH TRANSDERMA (08:47)
[2020-01-16 10:39] VITALS: BP 135/78; PULSE 88; RESP 18; TEMP 36.4; O2SAT 98
--- NOTE | 2020-01-16 11:53 | MHC.CM.PN ---
dc plan home no servceis
--- NOTE | 2020-01-16 13:21 | PM.DS ---
DS: Providers Provider Date of admission: 01/07/20 10:50 Primary care physician: Angel Vidal MD Consults: 01/07/20 13:16 Consult to Infectious Diseases Routine Consulting Provider: Amanda Jimenez Reason for consultation: pneumonia / uti Has provider been notified: No 01/07/20 16:09 Consult to Nephrology Routine Consulting Provider: Kyle Ann Reason for consultation: YESSICA Has provider been notified: No 01/07/20 16:38 Consult to Infectious Diseases Routine Consulting Provider: Amanda Jimenez Reason for consultation: pneumonitis vs uti Has provider been notified: No Consult to Nephrology Routine Consulting Provider: Samy Graham Reason for consultation: YESSICA Has provider been notified: No Consult to Nephrology Routine Consulting Provider: Kyle Ann Reason for consultation: YESSICA, anemia Has provider been notified: No 01/08/20 08:34 Consult to Hematology / Oncology Routine Consulting Provider: Domi Ballesteros Reason for consultation: Anemia severe ,? 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 (3) Hyponatremia: Status: Acute DS: Medications Discharge Medications Home Medications: Home Medications Medication Instructions Recorded Confirmed albuterol sulfate 90 mcg/actuation 2 puff INHALATION Q6H PRN 12/24/19 01/07/20 aerosol inhaler soalwyzyzj-eqfllkqddjthe-lcftjlsf 1 cap PO TID 12/24/19 01/07/20 50 mg-325 mg-40 mg capsule fluticasone propionate 50 1 spray INTRANASAL BID 12/24/19 01/07/20 mcg/actuation nasal spray,suspension Previous Rx's Medication Instructions Recorded carisoprodol 350 mg tablet 350 mg PO TID PRN 30 Days #90 tab 12/17/19 amlodipine 10 mg PO DAILY #30 tab 01/16/20 calcium carbonate [Calcium 500] 500 mg PO BID #90 tab 01/16/20 cyclophosphamide 150 mg PO DAILY #90 cap 01/16/20 labetalol 100 mg PO BID #60 tab 01/16/20 omeprazole 20 mg PO DAILY@0630 #30 cap 01/16/20 oxycodone 5 mg PO Q6H PRN #24 tab 01/16/20 prednisone 60 mg PO DAILY #90 tab 01/16/20 sulfamethoxazole-trimethoprim 1 tab PO MOWEFR@0900 #36 tab 01/16/20 DS: Summary Hospital Course Hospital Course: history of presenting illness 54 year old women presenting with cough and clear sputum. She reported over the last year she has lived in a trailer that was found to have black mold. She has had respiratory issues off and on over the last year.She reported some heart palpitations with no chest pain. She denied fever, chills, nausea, vomiting, diarrhea. She did report having some night sweats. She has been taking Ibuprofen 4-6 tabs daily over the last 6-8 weeks for chronic back pain. She also mentioned that about 10 days ago she did not urinate for at least 18 hours. Her creatinine was noted to be elevated at 5.32, calcium 8.1, troponin 17.8, 17.9 with no chest pain although she did mention she had some palpitations. She was given Levaquin, IV fluids. She will be admitted for further management an treatment of YESSICA, UTI and CAP. 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 Subcapsular renal hematoma status post biopsy H&H Remains stable stable . Sepsis felt to have sepsis secondary to tachycardia and leukocytosis but symptoms seems to be related to acute kidney injury and no infection found. Fibromyalgia continue Soma, and Fioricet (home medication.) Normocytic anemia. likely related to renal disease, hematocrit stable. Hypertension BP Improved with addition of labetalol 100 mg b.i.d.,and amlodipine 10 mg daily Time Spent with Patient Time attestation: Total time spent providing and/or coordinating discharge services: Physical Exam Vital Signs: Vital Signs: Last Vital Signs Temp 97.6 F 01/16/20 10:39 Pulse 88 01/16/20 10:39 Resp 18 01/16/20 10:39 BP 135/78 01/16/20 10:39 Pulse Ox 98 01/16/20 10:39 Body Mass Index 22.3 General patient resting comfortably in no acute distress, facial puffiness. Neck is supple no JVD. CVS regular rate rhythm, Respiratory lungs clear to auscultation, no respiratory distress, no wheeze, no rhonchi. Gastrointestinal abdomen soft, nontender, bowel sounds audible, no no guarding , no rigidity. Extremities no clubbing cyanosis , no pitting edema. Neuro nonfocal . Skin no rash DS: Data Data Completed and Pending Completed studies during hospitalization [Text1]: Pending at discharge 01/10/20 10:13 Surgical [PTH] Routine Labs on day of discharge: 01/07/20 04:01 ECG 12 lead EKG Stat 01/07/20 04:44 XR chest 1V Stat 01/07/20 05:15 Complete Blood Count Auto Diff Stat Comprehensive Met. Panel Stat Creatine Kinase Total Stat D Dimer Stat SLIDE REVIEW Stat Troponin-I High Sensitivity Stat 01/07/20 06:14 CT abdomen pelvis wo con Stat CT chest wo con Stat 01/07/20 06:46 0.9 % Sodium Chloride [Ns] 1,000 ml IV 1,000 mls/hr 01/07/20 06:47 levoFLOXacin/D5W [Levaquin] 750 mg in 150 ml IV ONCE 01/07/20 06:54 Lactic Acid Stat Blood Culture X2 [BC] Stat 01/07/20 06:57 NM pul perfusion Routine 01/07/20 06:59 Consult Rx Perform Med Rec 1 each MISCELLANE ONCE PRN 01/07/20 07:11 0.9 % Sodium Chloride [Ns] 1,860 ml IV Wide Open mls/hr 01/07/20 07:14 Add Laboratory Test Stat 01/07/20 07:56 SARS-CoV2/FLU/RSV Stat 01/07/20 08:33 Type and Screen Stat HIV Ab/Ag Stat Hepatitis A,B,C Profile Stat Troponin-I High Sensitivity Routine 01/07/20 08:49 Creatinine Urine Stat Total Protein Urine Random Stat Urine Culture Stat 01/07/20 Breakfast Regular Diet 01/07/20 10:41 Transfer Order Routine 01/07/20 13:53 EKG Documentation DIRECTED 01/07/20 15:34 ANCA Vasculitides Stat Complement C3 Stat Complement C4 Stat 01/07/20 16:38 Lactated Ringers [Lr] 500 ml IV 100 mls/hr carisoprodoL [Soma] 350 mg PO TID PRN 01/07/20 17:00 cefTRIAXone sodium [Rocephin] 1 gm 0.9 % Sodium Chloride [Ns] 50 ml IV Q12H 01/07/20 17:04 Azithromycin [Zithromax] 500 mg IV .STK-MED ONE cefTRIAXone sodium [Rocephin] 1 gm .ROUTE .STK-MED ONE 01/07/20 17:28 Hepatitis B,C Profile Stat Rheumatoid Factor Stat 01/07/20 18:00 Azithromycin [Zithromax] 500 mg 0.9 % Sodium Chloride [Ns] 250 ml IV Q24H 01/07/20 19:13 Basic Metabolic Panel Routine 01/07/20 20:00 Flu Vacc [id number](6mos up)/PF [Fluarix Quad [id number]] 0.5 ml IM .ONCE ONE 01/08/20 04:48 cefTRIAXone sodium [Rocephin] 1 gm .ROUTE .STK-MED ONE 01/08/20 05:02 Basic Metabolic Panel DAILY@0600 Ferritin Routine Folate Routine IRON PROFILE Routine Lactate Dehydrogenase Routine Vitamin B12 Routine 01/08/20 05:45 Complete Blood Count Auto Diff DAILY@0600 Reticulocyte Count Routine 01/08/20 11:45 Lactated Ringers [Lr] 1,000 ml IVCONT 100 mls/hr 01/08/20 11:47 Red Blood Cells Routine 01/08/20 12:19 Hemoglobin and Hematocrit Urgent 01/08/20 14:16 Add Laboratory Test Urgent 01/08/20 14:18 Add Laboratory Test Stat 01/08/20 20:58 Hemoglobin and Hematocrit Routine 01/09/20 05:29 Basic Metabolic Panel DAILY@0600 Hemoglobin and Hematocrit DAILY@0600 01/09/20 13:04 Acetaminophen [Tylenol] 650 mg PO ONCE ONE 01/10/20 CT abdomen wo con Urgent US biopsy renal Routine US guide needle placement Routine 01/10/20 05:39 Basic Metabolic Panel DAILY@0600 Complete Blood Count Auto Diff Routine PT with INR [Prothrombin Time INR] Routine SLIDE REVIEW Routine 01/10/20 08:37 ANCA Vasculitides Stat Prothrombin Time INR Stat Desmopressin Acetate [Ddavp] 19.95 mcg 0.9 % Sodium Chloride [Ns] 50 ml IV ONCE 01/10/20 09:05 fentaNYL citrate/PF [Sublimaze] 50 mcg .ROUTE .STK-MED ONE 01/10/20 09:06 Midazolam HCl/PF [Versed] 2 mg .ROUTE .STK-MED ONE Naloxone HCl [Narcan] 0.4 mg .ROUTE .STK-MED ONE flumazeniL [Romazicon] 0.05 mg .ROUTE .STK-MED ONE 01/10/20 09:42 Lidocaine HCl 1 % MPF [Xylocaine 1 % MPF] 5 ml .ROUTE .STK-MED ONE 01/10/20 10:13 Surgical [PTH] Routine 01/10/20 11:40 Morphine Sulfate 1 mg IVPUSH Q6H PRN 01/10/20 12:32 HYDROmorphone HCl [Dilaudid] 0.5 mg IVPUSH ONCE ONE 01/10/20 12:42 HYDROmorphone HCl [Dilaudid] 0.5 mg IVPUSH Q4H PRN 01/10/20 15:12 Hemoglobin and Hematocrit Stat 01/10/20 16:14 Glucose, Whole Blood Routine 01/10/20 18:27 Hemoglobin and Hematocrit Routine 01/10/20 22:45 Hemoglobin and Hematocrit Routine 01/11/20 04:20 Complete Blood Count no Diff DAILY@0600 01/11/20 05:23 Basic Metabolic Panel DAILY 01/11/20 07:59 Sodium Polystyrene Sulfon/Sorb [Kayexalate] 15 gm PO ONCE ONE 01/11/20 08:00 Lactated Ringers [Lr] 1,000 ml IVCONT 100 mls/hr 01/11/20 Breakfast Clear Liquid Diet 01/11/20 10:20 methylPREDNISolone Sod Succ/PF [SOLU-MedroL] 1,000 mg 0.9 % Sodium Chloride [Ns] 100 ml IV DAILY 01/11/20 11:15 methylPREDNISolone Sod Succ [SOLU-MedroL] 1,000 mg 0.9 % Sodium Chloride [Ns] 100 ml IV DAILY 01/11/20 13:50 ANCA Vasculitides Routine Anti Glomerular Basement Memb Routine Complete Blood Count no Diff Routine 01/11/20 18:21 Communication Order NOW 01/12/20 01:03 hydrALAZINE HCl [Apresoline] 5 mg IVPUSH ONCE ONE 01/12/20 06:20 Basic Metabolic Panel DAILY@0600 Complete Blood Count no Diff DAILY@0600 01/12/20 18:00 Non-Formulary Medication 6 each PO DAILY@1800 01/13/20 01:02 hydrALAZINE HCl [Apresoline] 5 mg IVPUSH ONCE ONE 01/13/20 05:48 Basic Metabolic Panel DAILY@0600 Complete Blood Count Auto Diff DAILY@0600 01/13/20 09:00 amLODIPine Besylate [Norvasc] 5 mg PO DAILY 01/13/20 14:45 Furosemide [Lasix] 40 mg IVPUSH ONCE ONE 01/13/20 18:00 Non-Formulary Medication 6 each PO ONCE@1800 ONE 01/14/20 05:56 Basic Metabolic Panel DAILY@0600 Complete Blood Count Auto Diff DAILY@0600 01/15/20 05:31 Basic Metabolic Panel DAILY@0600 Complete Blood Count Auto Diff DAILY@0600 SLIDE REVIEW Routine 01/16/20 05:53 Basic Metabolic Panel DAILY@0600 Complete Blood Count Auto Diff DAILY@0600 SLIDE REVIEW Routine Laboratory Last Values WBC 15.3 X10*3/uL (4.8-10.8) H 01/16/20 05:53 RBC 3.33 X10*6/uL (4.20-5.50) L 01/16/20 05:53 Hgb 9.2 g/dl (12.0-16.0) L 01/16/20 05:53 Hct 28.1 % (37-47) L 01/16/20 05:53 MCV 84.4 fL (80-98) 01/16/20 05:53 MCH 27.6 pg (27.0-33.0) 01/16/20 05:53 MCHC 32.7 g/dl (31.0-35.0) 01/16/20 05:53 RDW 13.7 % (11.0-16.0) 01/16/20 05:53 Plt Count 360 X10*3/uL (160-400) 01/16/20 05:53 MPV 10.5 fL (9.4-12.3) 01/16/20 05:53 Immature Gran % (Auto) 1.0 % (0.0-0.4) H 01/16/20 05:53 Neut % (Auto) 66.4 % (45-73) 01/16/20 05:53 Lymph % (Auto) 17.5 % (20-40) L 01/16/20 05:53 [place] % (Auto) 13.5 % (2-11) H 01/16/20 05:53 Eos % (Auto) 1.5 % (0-4) 01/16/20 05:53 Baso % (Auto) 0.1 % (0-2) 01/16/20 05:53 Lymph # (Auto) 2.7 X10*3/uL (1.2-4.9) 01/16/20 05:53 [place] # (Auto) 2.1 X10*3/uL (0.1-1.2) H 01/16/20 05:53 Eos # (Auto) 0.2 X10*3/uL (0.0-0.4) 01/16/20 05:53 Baso # (Auto) 0.0 X10*3/uL (0.0-0.2) 01/16/20 05:53 Abs Immat Gran (auto) 0.15 X10*3/uL (0.00-0.03) H 01/16/20 05:53 Absolute Neuts (auto) 10.2 X10*3/uL (2.0-8.3) H 01/16/20 05:53 Absolute Nucleated RBC 0.000 X10*3/uL (0.0-0.012) 01/16/20 05:53 Nucleated RBC % (auto) 0.0 /100WBC (0.0-0.2) 01/16/20 05:53 Smear Tech's Comments VERIFIED 01/16/20 05:53 Absolute Retic 0.022 X10*6/uL (0.026-0.095) L 01/08/20 05:45 Percent Retic 0.8 % (0.5-1.8) 01/08/20 05:45 Immature Retic Fraction 4.7 % (3.0-15.9) 01/08/20 05:45 Retic Hgb Equivalent 28.9 pg (30.0-35.0) L 01/08/20 05:45 PT 14.5 SEC (10.8-13.0) H 01/10/20 08:37 INR 1.2 (0.9-1.1) H 01/10/20 08:37 D-Dimer 838 NG/ML 01/07/20 05:15 Sodium 134 mmol/L (135-145) L 01/16/20 05:53 Potassium 3.6 mmol/l (3.3-5.1) 01/16/20 05:53 Chloride 102 mmol/L (96-108) 01/16/20 05:53 Carbon Dioxide 19 mmol/L (22-29) L 01/16/20 05:53 Anion Gap 17 (12-20) 01/16/20 05:53 BUN 93 mg/dL (9-16) H* 01/16/20 05:53 Creatinine 4.14 mg/dL (0.5-1.4) H* 01/16/20 05:53 Estim Creat Clear Calc 15.3 01/16/20 05:53 Estimated GFR 11 01/16/20 05:53 POC Glucose 74 mg/dL (60-115) 01/10/20 16:14 Random Glucose 122 mg/dL (60-115) H 01/16/20 05:53 Lactic Acid 0.5 mmol/L (0.5-2.0) 01/07/20 06:54 Calcium 7.2 mg/dL (8.4-10.2) L 01/16/20 05:53 Iron 28 mcg/dL (30-160) L 01/08/20 05:02 TIBC 139 mcg/dL (228-428) L 01/08/20 05:02 % Saturation 20 % (15-50) 01/08/20 05:02 Unsat Iron Binding 111 ug/dL 01/08/20 05:02 Ferritin 346 ng/mL (10-250) H 01/08/20 05:02 Total Bilirubin 0.3 mg/dL (0.0-1.0) 01/07/20 05:15 AST 19 U/L (5-31) 01/07/20 05:15 ALT 19 U/L (0-31) 01/07/20 05:15 Alkaline Phosphatase 194 U/L (39-117) H 01/07/20 05:15 Lactate Dehydrogenase 139 U/L (122-220) 01/08/20 05:02 Total Creatine Kinase 23 U/L (26-140) L 01/07/20 05:15 Troponin I High Sens 17.8 ng/L (<3.5-17.0) H 01/07/20 08:33 Total Protein 6.8 g/dL (6.5-8.0) 01/07/20 05:15 Albumin 3.0 g/dL (3.5-5.0) L 01/07/20 05:15 Vitamin B12 312 pg/mL (200-900) 01/08/20 05:02 Folate 6.7 ng/mL (> or = 4.0) 01/08/20 05:02 Urine Color STRAW 01/07/20 05:15 Urine Appearance CLEAR 01/07/20 05:15 Urine pH 5.5 (5.0-8.0) 01/07/20 05:15 Ur Specific [place] 1.020 (1.005-1.025) 01/07/20 05:15 Urine Protein 2+ MG/DL (NEG-TRACE) H 01/07/20 05:15 Urine Glucose (UA) NEG MG/DL (NEG) 01/07/20 05:15 Urine Ketones NEG MG/DL (NEG) 01/07/20 05:15 Urine Blood 3+ (NEG) H 01/07/20 05:15 Urine Nitrite NEG (NEG) 01/07/20 05:15 Ur Leukocyte Esterase NEG (NEG) 01/07/20 05:15 Urine RBC 50-75 /HPF (0) H 01/07/20 05:15 Urine WBC 10-14 /HPF (0-4) H 01/07/20 05:15 Ur Squamous Epith Cells 2+ /LPF 01/07/20 05:15 Urine Bacteria 1+ /LPF 01/07/20 05:15 Granular Casts 0-2 /LPF 01/07/20 05:15 Urine Mucus 1+ /LPF 01/07/20 05:15 U Random Total Protein 131 mg/dL (<12) H 01/07/20 08:49 Urine Creatinine 57.03 mg/dL 01/07/20 08:49 Rheumatoid Factor < 15.0 IU/mL (<15.0) 01/07/20 17:28 Proteinase 3 (PR3) Ab <1.0 AI 01/11/20 13:50 Myeloperoxidase Ab 2.1 AI H 01/11/20 13:50 Glomerular Base Memb Ab <1.0 AI 01/11/20 13:50 Complement C3 Cancelled 01/07/20 17:28 Complement C4 Cancelled 01/07/20 17:28 Coronavirus (PCR) NEGATIVE (Negative) 01/07/20 07:56 Hepatitis A IgM Ab Nonreactive (Nonreactive) 01/07/20 08:33 Hep Bs Antigen Not Reportable 01/07/20 17:28 Hep Bs Antigen (2) Negative (Negative) 01/07/20 17:28 Hep Bs Antibody NONREACTIVE (Nonreactive) 01/07/20 17:28 Hep B Core Total Ab Nonreactive (Nonreactive) 01/07/20 17:28 Hepatitis C Ab (EIA) Nonreactive (Nonreactive) 01/07/20 17:28 HIV 1&2 Ab/P24 Ag 4thGn Nonreactive (Nonreactive) 01/07/20 08:33 Influenza Type A (PCR) NEGATIVE (Negative) 01/07/20 07:56 Influenza Type B (PCR) NEGATIVE (Negative) 01/07/20 07:56 RSV RNA Qual (PCR) NEGATIVE (Negative) 01/07/20 07:56 Blood Type A Positive 01/07/20 08:33 Antibody Screen NEGATIVE 01/07/20 08:33 Crossmatch See Detail 01/07/20 08:33 Discharge Plan Discharge Patient Disposition: Home Health Service Referrals: Angel Vidal MD [Primary Care Provider] - Discharge Medications: New sulfamethoxazole-trimethoprim 400-80 mg Tablet 1 tab PO MOWEFR@0900 Qty: 36 RF: 0 prednisone 20 mg Tablet 60 mg PO DAILY Qty: 90 RF: 0 amlodipine 5 mg Tablet 10 mg PO DAILY Qty: 30 RF: 0 omeprazole 20 mg Capsule,Delayed Release(Dr/Ec) 20 mg PO DAILY@0630 Qty: 30 RF: 0 calcium carbonate [Calcium 500] 500 mg calcium (1,250 mg) tablet 500 mg PO BID Qty: 90 RF: 0 cyclophosphamide 50 mg capsule 150 mg PO DAILY Qty: 90 RF: 0 oxycodone 5 mg Tablet 5 mg PO Q6H PRN (Reason: severe pain) Qty: 24 RF: 0 labetalol 100 mg Tablet 100 mg PO BID Qty: 60 RF: 0 Continued carisoprodol 350 mg tablet 350 mg PO TID PRN (Reason: muscle pain) 30 Days Qty: 90 RF: 0 bysiocduyw-zyfkmvqlbawnk-bikb 50-325-40 mg capsule 1 cap PO TID RF: 0 fluticasone propionate 50 mcg/actuation spray,suspension 1 spray intranasal BID RF: 0 albuterol sulfate 90 mcg/actuation HFA aerosol inhaler 2 puff inhalation Q6H PRN (Reason: Wheezing) RF: 0 Discontinued doxycycline hyclate 100 mg capsule 100 mg PO BID 10 Days Qty: 20 RF: 0 Discharge Orders: Discharge Order (Routine); Ordered 01/16/20 Ordered By: Abdiaziz Cartwright Diet: regular diet Activity on Discharge: As tolerated Visit Report Forms: Patient Portal Discharge page Care Plan Goals: outpatient follow-up with Dr. Graham in 1 week, check labs next Tuesday Health Concerns: continue taking all medications as prescribed including prednisone, cyclophosphamide and Bactrim 1 tablet 3 times per week Plan of Treatment: continue close outpatient follow-up with primary care physician and Nephrology.
--- NOTE | 2020-01-16 13:24 | PM.PNNEP ---
Subjective Subjective Date of Service: 01/16/20 Principal diagnosis: YESSICA Interval history: seen and examined denies nausea, vomiting, shortness of breath Physical Exam Vital Signs: Vital Signs: Last Vital Signs Temp 97.6 F 01/16/20 10:39 Pulse 88 01/16/20 10:39 Resp 18 01/16/20 10:39 BP 135/78 01/16/20 10:39 Pulse Ox 98 01/16/20 10:39 Body Mass Index 22.3 Const: General: no acute distress Orientation/consciousness: oriented to person, oriented to place and oriented to time Neck: Neck: Yes supple Resp: Auscultation: clear to auscultation bilaterally Cardio: Heart sounds: S1 normal heart sound present and S2 normal heart sound present GI: Palpation (GI): Soft to palpation and nontender Neuro: General: oriented to person, oriented to place and oriented to time Assessment & Plan Assessment and plan (1) YESSICA (acute kidney injury): Status: Acute (2) 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 (3) Hyponatremia: Status: Acute Assessment and Plan: kidney function continues to improve serum sodium better 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
--- NOTE | 2020-01-16 13:42 | MHC.CM.PN ---
referral to [facility] pt dcd
== END 2020-01-16 13:49 | disposition home health service (06) | DRG 462 ==
LOC: HO.ED 07:58 → HO.IMC 14:18
PROVIDERS: Emergency Medicine; Internal Medicine; Internal Medicine Hypertension Specialist; Internal Medicine Nephrology; Admitting Provider Internal Medicine; Emergency Provider Student in an Organized Health Care Education/Training Program; PCP Internal Medicine; Visit Provider Hospitalist
DX: N05.8 Unspecified nephritic syndrome with other morphologic changes (principal); D63.8 Anemia in other chronic diseases classified elsewhere; N17.0 Acute kidney failure with tubular necrosis; D64.9 Anemia, unspecified; Z20.828 Contact with and (suspected) exposure to other viral communicable diseases; G89.29 Other chronic pain; N99.840 Postprocedural hematoma of a genitourinary system organ or structure following a genitourinary system procedure; I10 Essential (primary) hypertension; Z23 Encounter for immunization; Z88.5 Allergy status to narcotic agent; Z79.51 Long term (current) use of inhaled steroids; Z79.52 Long term (current) use of systemic steroids; Z79.891 Long term (current) use of opiate analgesic; Z79.899 Other long term (current) drug therapy
CPT/HCPCS: 0241U; 36415; 50200; 71045; 71250; 74150; 74176; 76942; 78580; 80048; 80053; 81001; 82550; 82607; 82728; 82746; 82947; 83520; 83540; 83605; 83615; 84156; 84484; 85014; 85018; 85025; 85027; 85045; 85379; 85610; 86021; 86160; 86431; 86704; 86706; 86709; 86803; 86850; 86900; 86901; 86920; 86923; 87040; 87086; 87340; 87389; 88300; 88305; 88313; 88346; 88348; 90686; 93005; 96361; 96365; 99024; 99225; 99232; 99233; 99285; A9540; J0456; J0696; J1170; J1940; J1956; J2270; J2405; J2597; J2930; P9016

== ENCOUNTER 2020-01-21 13:12 | Inpatient (IN) | payer OTHER, SELFPAY ==
[2020-01-21] VITALS (13 sets, daily range): BP systolic 125–145; BP diastolic 58–77; PULSE 61–93; RESP 2–30; TEMP 36.9; O2SAT 88–97; BMI 22.8; BMI 23.0
--- NOTE | 2020-01-21 13:25 | XR_ITS ---
EXAMINATION: XR CHEST CLINICAL INFORMATION: SOB and cough COMPARISON: Chest 01/07/2020 TECHNIQUE: Frontal view of the chest was obtained. FINDINGS: There is traction diffuse bilateral lung and lower lobe patchy opacity suggestive of pneumonia. Heart size and perivascular is normal. No gross bony abnormality seen. XR/XR chest 1V IMPRESSION: New dramatic change since the last chest 01/07/2020. There is diffuse significant bilateral pneumonia.
--- NOTE | 2020-01-21 13:25 | ECG_ITS ---
Test Reason : SOB Blood Pressure : / mmHG Vent. Rate : 085 BPM Atrial Rate : 085 BPM P-R Int : 152 ms QRS Dur : 072 ms QT Int : 380 ms P-R-T Axes : 062 086 029 degrees QTc Int : 452 ms Normal sinus rhythm Normal ECG When compared with ECG of 07-JAN-2020 04:01, Premature supraventricular complexes are no longer Present Referred By: Neeru Joshua Electronically Signed By:ARDEN MCGREGOR MD
--- NOTE | 2020-01-21 13:27 | ED.SOB ---
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 Admits to exposure to COVID-19 from family member on . Reports LE edema. Denies fever, chills, nausea/vomiting, dysuria/hematuria Related Data Home Medications Medication Instructions Recorded Confirmed albuterol sulfate 90 mcg/actuation 2 puff INHALATION Q6H PRN 12/24/19 01/21/20 aerosol inhaler eclbxhsrtq-tosdylzaukjmu-vavcdxrs 1 cap PO TID 12/24/19 01/21/20 50 mg-325 mg-40 mg capsule fluticasone propionate 50 1 spray INTRANASAL BID 12/24/19 01/21/20 mcg/actuation nasal spray,suspension Previous Rx's Medication Instructions Recorded amlodipine 10 mg PO DAILY #30 tab 01/16/20 calcium carbonate [Calcium 500] 500 mg PO BID #90 tab 01/16/20 cyclophosphamide 150 mg PO DAILY #90 cap 01/16/20 labetalol 100 mg PO BID #60 tab 01/16/20 omeprazole 20 mg PO DAILY@0630 #30 cap 01/16/20 oxycodone 5 mg PO Q6H PRN #24 tab 01/16/20 prednisone 60 mg PO DAILY #90 tab 01/16/20 sulfamethoxazole-trimethoprim 1 tab PO MOWEFR@0900 #36 tab 01/16/20 carisoprodol 350 mg tablet 350 mg PO TID PRN 30 Days #90 tab 01/21/20 Allergies Allergy/AdvReac Type Severity Reaction Status Date / Time metoclopramide [Reglan] Allergy Unknown anaphylaxis Verified 01/01/20 12:04 tramadol [TRAMADOL] Allergy Unknown UNKNOWN, Verified 01/07/20 18:35 seizure, seizure Review of Systems Review of Systems: Constitutional: No Weight loss, No Fever, No Chills Eyes: No Eye Pain, No Swelling, No Redness, No Foreign Body, No Discharge, No Vision Changes Cardiovascular: + Chest Pain, + SOB, No Dyspnea on Exertion, No Orthopnea, + Edema, No Palpitations Respiratory: + Cough, + Sputum, + Dyspnea Gastrointestinal: No Nausea, No Vomiting, No Diarrhea, No Constipation, + Abdominal pain Genitourinary: No irregular bleeding, No Dysuria, No Urinary Frequency, No Hematuria,+ Urinary Flow Changes Musculoskeletal: No joint pain, No Myalgias, No Joint Swelling Skin: No Skin Lesions, No rash Neuro: No Weakness, No Numbness, No Paresthesias, No Loss of Consciousness, No Dizziness, No Headache Yes all other systems are reviewed and are negative [facility], [facility] Past Medical History Attestation statement: The following information was validated with the patient. Medical History (Updated 01/21/20 @ 20:44 by GREG Wolfe) Back pain Fibromyalgia Pulmonary fibrosis Surgical History H/O exploratory laparotomy H/O: hysterectomy History of back surgery Family History Family History Father CAD (coronary artery disease) Asbestosis Mother Hypothyroidism Social History Social History Household Members: Spouse Housing: Other Smoking Status: Never smoker Use of substances other than those prescribed or required for medical reasons: No Advance Directives: No Advance Directives Information Provided: No service: No Physical Exam Vital Signs: Vital Signs: Last Vital Signs Temp 98.5 F 01/21/20 13:21 Pulse 74 01/21/20 18:10 Resp 22 H 01/21/20 18:10 BP 128/77 01/21/20 18:10 Pulse Ox 95 01/21/20 18:10 Body Mass Index 23.0 Const: General: cooperative Orientation/consciousness: patient oriented x3 Limitations: no limitations HENMT: Head: Yes normal to inspection Ears: hearing grossly normal bilaterally General nose exam: Normal external nose present Face and sinus: Yes normal facial exam Eyes: General: appearance normal, both eyes and all related structures EOM: EOMs intact bilaterally Neck: Neck: Yes normal visual inspection Resp: Effort & Inspection: normal respiratory effort Auscultation: rhonchi throughout and diminished lung sounds Cardio: Rate: regular rate Heart sounds: S1 normal heart sound present and S2 normal heart sound present GI: Inspection: Yes normal to inspection Palpation (GI): Soft to palpation, nontender, no guarding and not rigid Skin: Rashes: no rashes Wounds: no wounds Neuro: General: patient oriented x3 Gait exam (Neuro): Normal gait present Extrem: Other: Mild bilateral LE edema General: Yes normal to inspection Course Course Course Narrative: -1358--CXR showing new dramatic change since last CXR on 01/06 with diffuse significant bilateral pneumonia -no leukocytosis, H&H low 8.5/26.8 -BUN/creatinine elevated 80/4.2 (chronically elevated since recent admission) >> troponin 202, no ischemic EKG changes, likely from renal dysfunction -COVID-19 positive -ferritin, LDH, CRP, and procalcitonin all elevated consistent with COVID-19 -1445--attempted to take off non-rebreather, pt desatted to 60%, non-rebreather reapplied, sating 90% on non-rebreather > will place patient on high-flow once moved to isolated room. ICU was paged -on high-flow patient holding sats in the low 90s, initially dipped down to 74%, non-rebreather placed over high-flow and came up to 92% >> non-rebreather removed and patient remaining 90-91% on high-flow only in prone position -ICU saw patient in the ED, recommended transfer to facility with ECMO -called [facility] who did not accept patient, then called [facility] who reported patient is not ECMO candidate due to renal dysfunction. 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 Upon arrival standing 71% on RA, non-rebreather placed saturations increased to 97%, coarse lung sounds throughout, + bilateral LE edema. Concern for COVID-19 vs pneumonia/HCAP vs CHF. Concern for urinary retention/acute on chronic renal failure. Lower concern for ACS/PE Plan: EKG, labs, CXR, blood cultures, lactate, empiric IV antibiotics, anticipated admission Lab Data Result diagrams: 01/21/20 13:56 01/21/20 13:55 Labs: Lab Results 01/21/20 01/21/20 01/21/20 Range/Units 13:55 13:55 13:55 WBC (4.8-10.8) X10*3/uL RBC (4.20-5.50) X10*6/uL Hgb (12.0-16.0) g/dl Hct (37-47) % MCV (80-98) fL MCH (27.0-33.0) pg MCHC (31.0-35.0) g/dl RDW (11.0-16.0) % Plt Count (160-400) X10*3/uL MPV (9.4-12.3) fL Immature Gran % (Auto) (0.0-0.4) % Neut % (Auto) (45-73) % Lymph % (Auto) (20-40) % [place] % (Auto) (2-11) % Eos % (Auto) (0-4) % Baso % (Auto) (0-2) % Lymph # (Auto) (1.2-4.9) X10*3/uL [place] # (Auto) (0.1-1.2) X10*3/uL Eos # (Auto) (0.0-0.4) X10*3/uL Baso # (Auto) (0.0-0.2) X10*3/uL Abs Immat Gran (auto) (0.00-0.03) X10*3/uL Absolute Neuts (auto) (2.0-8.3) X10*3/uL Absolute Nucleated RBC (0.0-0.012) X10*3/uL Nucleated RBC % (auto) (0.0-0.2) /100WBC Smear Tech's Comments D-Dimer NG/ML Hold Blue Top ABG pH (7.35-7.45) ABG pCO2 (32-45) mmhg ABG pO2 (83-108) mmhg ABG HCO3 (22-26) mmol/l ABG O2 Saturation % ABG Base Excess Oxygen Given Sodium 135 (135-145) mmol/L Potassium 4.5 D (3.3-5.1) mmol/l Chloride 104 (96-108) mmol/L Carbon Dioxide 17 L (22-29) mmol/L Anion Gap 19 (12-20) BUN 80 H* (9-16) mg/dL Creatinine 4.20 H* (0.5-1.4) mg/dL Estim Creat Clear Calc 15.0 Estimated GFR 11 Random Glucose 161 H (60-115) mg/dL Lactic Acid (0.5-2.0) mmol/L Calcium 7.4 L (8.4-10.2) mg/dL Magnesium 2.1 (1.6-2.6) mg/dL Ferritin 2922 H (10-250) ng/mL Total Bilirubin 0.4 (0.0-1.0) mg/dL Direct Bilirubin 0.2 (0.0-0.5) mg/dL AST 46 H D (5-31) U/L ALT 30 (0-31) U/L Alkaline Phosphatase 193 H (39-117) U/L Lactate Dehydrogenase 709 H (122-220) U/L Troponin I High Sens 202.3 H D (<3.5-17.0) ng/L C-Reactive Protein 26.42 H (< or = 0.50) mg/dL B-Natriuretic Peptide 572 H (<100) pg/mL Total Protein 5.8 L (6.5-8.0) g/dL Albumin 2.8 L (3.5-5.0) g/dL Procalcitonin 17.83 ng/mL Coronavirus (PCR) (Negative) Influenza Type A (PCR) (Negative) Influenza Type B (PCR) (Negative) RSV RNA Qual (PCR) (Negative) 01/21/20 01/21/20 01/21/20 Range/Units 13:56 13:56 13:56 WBC 8.2 (4.8-10.8) X10*3/uL RBC 3.09 L (4.20-5.50) X10*6/uL Hgb 8.5 L (12.0-16.0) g/dl Hct 26.8 L (37-47) % MCV 86.7 (80-98) fL MCH 27.5 (27.0-33.0) pg MCHC 31.7 (31.0-35.0) g/dl RDW 14.6 (11.0-16.0) % Plt Count 194 D (160-400) X10*3/uL MPV 10.0 (9.4-12.3) fL Immature Gran % (Auto) 1.3 H (0.0-0.4) % Neut % (Auto) 95.3 H (45-73) % Lymph % (Auto) 1.6 L (20-40) % [place] % (Auto) 1.8 L (2-11) % Eos % (Auto) 0.0 (0-4) % Baso % (Auto) 0.0 (0-2) % Lymph # (Auto) 0.1 L (1.2-4.9) X10*3/uL [place] # (Auto) 0.2 (0.1-1.2) X10*3/uL Eos # (Auto) 0.0 (0.0-0.4) X10*3/uL Baso # (Auto) 0.0 (0.0-0.2) X10*3/uL Abs Immat Gran (auto) 0.11 H (0.00-0.03) X10*3/uL Absolute Neuts (auto) 7.8 (2.0-8.3) X10*3/uL Absolute Nucleated RBC 0.000 (0.0-0.012) X10*3/uL Nucleated RBC % (auto) 0.0 (0.0-0.2) /100WBC Smear Tech's Comments VERIFIED D-Dimer 2075 NG/ML Hold Blue Top SEE NOTE ABG pH (7.35-7.45) ABG pCO2 (32-45) mmhg ABG pO2 (83-108) mmhg ABG HCO3 (22-26) mmol/l ABG O2 Saturation % ABG Base Excess Oxygen Given Sodium (135-145) mmol/L Potassium (3.3-5.1) mmol/l Chloride (96-108) mmol/L Carbon Dioxide (22-29) mmol/L Anion Gap (12-20) BUN (9-16) mg/dL Creatinine (0.5-1.4) mg/dL Estim Creat Clear Calc Estimated GFR Random Glucose (60-115) mg/dL Lactic Acid 1.0 (0.5-2.0) mmol/L Calcium (8.4-10.2) mg/dL Magnesium (1.6-2.6) mg/dL Ferritin (10-250) ng/mL Total Bilirubin (0.0-1.0) mg/dL Direct Bilirubin (0.0-0.5) mg/dL AST (5-31) U/L ALT (0-31) U/L Alkaline Phosphatase (39-117) U/L Lactate Dehydrogenase (122-220) U/L Troponin I High Sens (<3.5-17.0) ng/L C-Reactive Protein (< or = 0.50) mg/dL B-Natriuretic Peptide (<100) pg/mL Total Protein (6.5-8.0) g/dL Albumin (3.5-5.0) g/dL Procalcitonin ng/mL Coronavirus (PCR) (Negative) Influenza Type A (PCR) (Negative) Influenza Type B (PCR) (Negative) RSV RNA Qual (PCR) (Negative) 01/21/20 01/21/20 Range/Units 14:04 14:45 WBC (4.8-10.8) X10*3/uL RBC (4.20-5.50) X10*6/uL Hgb (12.0-16.0) g/dl Hct (37-47) % MCV (80-98) fL MCH (27.0-33.0) pg MCHC (31.0-35.0) g/dl RDW (11.0-16.0) % Plt Count (160-400) X10*3/uL MPV (9.4-12.3) fL Immature Gran % (Auto) (0.0-0.4) % Neut % (Auto) (45-73) % Lymph % (Auto) (20-40) % [place] % (Auto) (2-11) % Eos % (Auto) (0-4) % Baso % (Auto) (0-2) % Lymph # (Auto) (1.2-4.9) X10*3/uL [place] # (Auto) (0.1-1.2) X10*3/uL Eos # (Auto) (0.0-0.4) X10*3/uL Baso # (Auto) (0.0-0.2) X10*3/uL Abs Immat Gran (auto) (0.00-0.03) X10*3/uL Absolute Neuts (auto) (2.0-8.3) X10*3/uL Absolute Nucleated RBC (0.0-0.012) X10*3/uL Nucleated RBC % (auto) (0.0-0.2) /100WBC Smear Tech's Comments D-Dimer NG/ML Hold Blue Top ABG pH 7.31 L (7.35-7.45) ABG pCO2 32 (32-45) mmhg ABG pO2 66 L (83-108) mmhg ABG HCO3 16 L (22-26) mmol/l ABG O2 Saturation 90.4 % ABG Base Excess -9.6 Oxygen Given 100% Sodium (135-145) mmol/L Potassium (3.3-5.1) mmol/l Chloride (96-108) mmol/L Carbon Dioxide (22-29) mmol/L Anion Gap (12-20) BUN (9-16) mg/dL Creatinine (0.5-1.4) mg/dL Estim Creat Clear Calc Estimated GFR Random Glucose (60-115) mg/dL Lactic Acid (0.5-2.0) mmol/L Calcium (8.4-10.2) mg/dL Magnesium (1.6-2.6) mg/dL Ferritin (10-250) ng/mL Total Bilirubin (0.0-1.0) mg/dL Direct Bilirubin (0.0-0.5) mg/dL AST (5-31) U/L ALT (0-31) U/L Alkaline Phosphatase (39-117) U/L Lactate Dehydrogenase (122-220) U/L Troponin I High Sens (<3.5-17.0) ng/L C-Reactive Protein (< or = 0.50) mg/dL B-Natriuretic Peptide (<100) pg/mL Total Protein (6.5-8.0) g/dL Albumin (3.5-5.0) g/dL Procalcitonin ng/mL Coronavirus (PCR) POSITIVE A (Negative) Influenza Type A (PCR) NEGATIVE (Negative) Influenza Type B (PCR) NEGATIVE (Negative) RSV RNA Qual (PCR) NEGATIVE (Negative) Discharge Plan Discharge Clinical Impression: COVID-19, YESSICA (acute kidney injury), Viral pneumonia Patient Disposition: Admitted As Inpatient
[2020-01-21 14:06] LABS: Hematocrit 26.8 % (37-47); Hemoglobin 8.5 g/dl (12.0-16.0); Imm Gran Abs Auto 0.11 X10*3/uL (0.00-0.03); Imm Gran Pct Auto 1.3 % (0.0-0.4); Lymphocytes Absolute Auto 0.1 X10*3/uL (1.2-4.9); Lymphocytes Percent Auto 1.6 % (20-40); MANUAL DIFF FLAG SCAN; Mean Corpuscular HGB Conc 31.7 g/dl (31.0-35.0); Mean Corpuscular Hemoglobin 27.5 pg (27.0-33.0); Mean Corpuscular Volume 86.7 fL (80-98); Monocytes Absolute Auto 0.2 X10*3/uL (0.1-1.2); Monocytes Percent Auto 1.8 % (2-11); Neutrophils Absolute Auto 7.8 X10*3/uL (2.0-8.3); Neutrophils Percent Auto 95.3 % (45-73); Platelet Count 194 X10*3/uL (160-400); Red Blood Count 3.09 X10*6/uL (4.20-5.50); Red Cell Distribution Width 14.6 % (11.0-16.0); SCAN SMEAR FLAG 1; White Blood Count 8.2 X10*3/uL (4.8-10.8)
[2020-01-21 14:26] LABS: SLIDE REVIEW VERIFIED
[2020-01-21] MEDS: methylPREDNISolone Sod Succ/PF 125 MG/2 ML VIAL IVPUSH (14:34)
[2020-01-21] MEDS: Piperacillin Sodium/Tazobactam 2.25 GM in 0.9 % Sodium Chloride 50 ML IV (14:34)
--- NOTE | 2020-01-21 14:38 | PC.NURSE ---
lungs - coarse all lobes, coughed up small amt of bloody sputum, mlp (christos) aware.
[2020-01-21 14:41] LABS: Alanine Aminotransferase 30 U/L (0-31); Albumin Level 2.8 g/dL (3.5-5.0); Alkaline Phosphatase 193 U/L (39-117); Anion Gap 19 (12-20); Aspartate Amino Transferase 46 U/L (5-31); Bilirubin Direct 0.2 mg/dL (0.0-0.5); Bilirubin Total 0.4 mg/dL (0.0-1.0); Carbon Dioxide 17 mmol/L (22-29); Chloride 104 mmol/L (96-108); Glucose Random 161 mg/dL (60-115); Lactate Dehydrogenase 709 U/L (122-220); Magnesium 2.1 mg/dL (1.6-2.6); Potassium 4.5 mmol/l (3.3-5.1); Sodium 135 mmol/L (135-145)
[2020-01-21 14:42] LABS: Blood Urea Nitrogen 80 mg/dL (9-16); Estimated Glomerular Filt Rate 11; Total Protein 5.8 g/dL (6.5-8.0)
[2020-01-21] MEDS: Albuterol Sulfate 90 MCG 8 GM INHALER 4 PUFF INHALE (14:42)
[2020-01-21 14:49] LABS: B Type Natriuretic Peptide 572 pg/mL (<100); Calcium 7.4 mg/dL (8.4-10.2); Troponin-I High Sensitivity 202.3 ng/L (<3.5-17.0)
[2020-01-21] MEDS: HYDROcodone/Homat 5/1.5/5 ML 5 ML SYRUP PO (14:53)
[2020-01-21] MEDS: 0.9 % Sodium Chloride 500 ML 999 ML IVCONT (14:53)
[2020-01-21] MEDS: Acetaminophen 325 MG TABLET 650 MG PO (14:53)
[2020-01-21 14:54] LABS: Influenza A PCR NEGATIVE (Negative); Influenza B PCR NEGATIVE (Negative); Resp Syncy Virus RNA Qual PCR NEGATIVE (Negative); SARS COV2 PCR INHOUSE POSITIVE (Negative)
[2020-01-21 14:57] LABS: Pt Ventilation O2% 100%
[2020-01-21 14:58] LABS: ABG PCO2 32 mmhg (32-45); HCO3 ABG 16 mmol/l (22-26); PO2 ABG 66 mmhg (83-108); pH ABG 7.31 (7.35-7.45)
[2020-01-21 14:59] LABS: Base Excess ABG -9.6; Oxygen Saturation ABG 90.4 %
[2020-01-21 15:21] LABS: Procalcitonin 17.83 ng/mL
--- NOTE | 2020-01-21 16:32 | PC.NURSE ---
Md Nick Aquino and pac osmany at bedside to discuss possible intubation. decision was made to defer intubation at this time, pt is in pron position on a nasal oximizer by rt plan per medical team is to maintoan o2 sat above 88% and admit pt to icu. pt is aware and agreeable to hannah of care, thakur cath has been placed by sterile technique by heidi hollis . 2nd iv 20 ga l ac was placed by this rn at approx 1515.
--- NOTE | 2020-01-21 16:59 | PM.EVENT ---
Event Note Date of Service: 01/22/20 Event Note: I was called by GREG Arita about Ms. Ornelas who presented to the ED with hypoxemia 2? COVID pneumonia. 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 She was discharged on 01/15 on cyclophosphamide and prednisone 60 mg daily. She was COVID-19 PCR negative on 12/23 and 01/06, but chest CT on 01/06 did show infiltrates in the periphery of both lower lobes, albeit not typical for C19. The patient was BIBA this afternoon for worsening productive cough of white sputum with bloody streaks, SOB, chest discomfort, and decreased urination since yesterday. Admits to exposure to COVID-19 from family member on . Denied fever, chills, nausea/vomiting, dysuria/hematuria. In the ED, initial RR was 24, with Sat low 70?s on room air, 97% on NRBFM. Chest x-ray showed striking diffuse bilateral mid and lower lung patchy opacities suggestive of pneumonia. Labs are notable for normal white count with with marked lymphopenia. CRP and D-dimer are still pending, but notably was 838 on January 06. The BUN and creatinine are 80/4.2 (was 93/4.1 on discharge on January 15). Ferritin level is 03/22/2025. Albumin is 2.8, and procalcitonin is 17.8. The patient's saturation deteriorated in the ED and she was put on high-flow nasal cannula. On 100%/60 L high-flow, sat dropped into the 70s. At that point I was called, and recommended tracheal intubation. However, the patient was turned prone and a non-rebreather face mask was added to the high-flow. Her sat bumped up to the low to mid 90s, and she was comfortable and she declined intubation. The respiratory therapist asked me to see the patient at that time. The patient was fully awake, lying on her side, breathing easy with absolutely no increase in work of breathing, with a respiratory rate of about 20 and a sat of 95% on the high-flow nasal cannula 100%/60 L, with non-rebreather face mask. We took the non-rebreather face mask off and she was satting 89-92% while still prone. She fell asleep prone and was breathing entirely easily with absolutely no increased work of breathing, and a sat of 92% on HFNC 60L/100%. IMPRESSION: 1. Bilat C19 pneumonia. Not entirely clear to me when she became infected. It?s awfully early to present with this picture if indeed she was actually infected only 4 days ago. More likely she was infected earlier than that. 2. Acute hypoxemic respiratory failure, secondary to the above. 3. Acute kidney injury, diagnosed during the previous hospitalization, as detailed above. The patient was already given Solu-Medrol 125 mg in the ED. At this point time, there is no indication for tracheal intubation. I do believe this patient?s prognosis is quite grim, however. Given her age, it seems to me that she is an excellent candidate for ECMO. From prior experience, I would suggest calling the [facility] and see if they would consider taking her in transfer. If they cannot take her, call [facility]. Otherwise, the patient can be admitted to [facility]. I would have renal follow her and advise on her medications for GN. In addition, I would give her the following, assuming it?s OK with renal: -Vitamin C 1000 mg po q 6 hours (check w renal about this) -Zinc 100 mg po daily -Melatonin 9 mg at night -Vitamin D3 2000 units daily -B complex vitamin daily -Methylprednisolone 80 mg q 12 hourly (check w renal) -Famotidine 40 mg BID (IV or po) (check w renal ? may need to cut dose to 20 mg bid) -Thiamine 200 mg IV q 12 hours -Magnesium 2 g IV, then keep Mg between 2.0 and 2.4 mmol/l. -Atorvastatin 80 mg/day. If DDimer is > 1000, start Lovenox ? mg/kg daily. If > start full VTE heparinization. The patient also needs a PICC line renan (i.e tomorrow, if she stays here). Monitoring: Should have daily VBG, DDimer, CRP, Ferritin, procalcitonin, and Mg with her usual morning labs. Time (including mult d/w ED staff and with Dr. Marcum (accepting hospitalist)): 80 min. ([id number] [phone] [phone])
[2020-01-21 17:20] LABS: C Reactive Protein 26.42 mg/dL (< or = 0.50)
--- NOTE | 2020-01-21 17:20 | PC.NURSE ---
CALL OUT TO [facility] AND [facility] FOR POSSIBLE TRANSFER FOR ECMO THERAPY.
[2020-01-21 17:21] LABS: D Dimer 2075 NG/ML
[2020-01-21 17:52] LABS: Ferritin 2922 ng/mL (10-250)
--- NOTE | 2020-01-21 18:11 | PC.NURSE ---
Addendum entered by Ramon Eugene 01/21/20 18:49: pt maintained in prone psotion. Original Note: pt asleep but easily arousable,no update from krysta gregory or robe. pt remians sinus on monitor. pt has occasional cough with whitish sputum.
--- NOTE | 2020-01-21 19:44 | PC.NURSE ---
ASSUMED CARE OF PT. PT RESTING IN STRETCHER IN PRONE POSITION. PT ON NRB AND OXIMIZER WITH PO 89%. PT SLEEPING, WAKES TO VOICE. PT ON MONITOR WITH HR 70. REPEAT TROP BEING DRAWN AT THIS TIME. PT BEING ADMITTED TO ICU. UNABLE TO TRANSFER TO [facility] D/T WEATHER CONDITIONS. AWAITING FOR TRANSFER TO ICU.
--- NOTE | 2020-01-21 20:45 | PC.NURSE ---
PT C/O RUNNY NOSE AND REQUESTING TO BLOW HER NOSE, PT REMOVES HER NRB AND DROPS TO 55%, PT STATES IM SCARED OF GETTING INTUBATED TONIGHT . PT REASSURED AND TOLD TO RELAX. PT CALMED DOWN AND PO RETURNED TO 88-90%. PA AWARE. PT AWAITING FOR ROOM ASSIGNMENT IN ICU. PT COUGHING WITH WHITISH CONGESTION. PT REMAINS ON MONITOR WITH HR 76. WILL CONTINUE TO MONITOR PT.
--- NOTE | 2020-01-21 20:57 | PM.CCHP ---
History of Present Illness Date of Service: 01/21/20 Chief Complaint: Ms. Ornelas admitted to ICU hypoxemia 2? COVID pneumonia. 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 She was discharged on 01/15 on cyclophosphamide and prednisone 60 mg daily. She was COVID-19 PCR negative on 12/23 and 01/06, but chest CT on 01/06 did show infiltrates in the periphery of both lower lobes, albeit not typical for C19. The patient was BIBA this afternoon for worsening productive cough of white sputum with bloody streaks, SOB, chest discomfort, and decreased urination since yesterday. Admits to exposure to COVID-19 from family member on . Denied fever, chills, nausea/vomiting, dysuria/hematuria. In the ED, initial RR was 24, with Sat low 70?s on room air, 97% on NRBFM. Chest x-ray showed striking diffuse bilateral mid and lower lung patchy opacities suggestive of pneumonia. Labs are notable for normal white count with with marked lymphopenia. CRP and D-dimer are still pending, but notably was 838 on January 06. The BUN and creatinine are 80/4.2 (was 93/4.1 on discharge on January 15). Ferritin level is 03/22/2025. Albumin is 2.8, and procalcitonin is 17.8. The patient's saturation deteriorated in the ED and she was put on high-flow nasal cannula. On 100%/60 L high-flow, sat dropped into the 70s. At that point I was called, and recommended tracheal intubation. However, the patient was turned prone and a non-rebreather face mask was added to the high-flow. Her sat bumped up to the low to mid 90s, and she was comfortable and she declined intubation. At the time she had been fully awake, lying on her side, breathing easy with absolutely no increase in work of breathing, with a respiratory rate of about 20 and a sat of 95% on the high-flow nasal cannula 100%/60 L, with non-rebreather face mask. We took the non-rebreather face mask off and she was satting 89-92% while still prone. She fell asleep prone and was breathing entirely easily with absolutely no increased work of breathing, and a sat of 92% on HFNC 60L/100%. Currently the pt has no further complaints, but admits to feeling somewhat anxious. ROS: Denies headache, no visual changes, lightheadedness or dizziness, no history of seizures or strokes, no history of eye or ear problems, no sore throat, denies chest pain, palpitations, no coronary disease, pulmonary disease, no hemoptysis, denies any melena, hematochezia, liver problems, no dysuria, hematuria, no leg swelling, no history of DVT or PE. Past Medical History: as above in addition Fibromyalgia Past Surgical History: H/O exploratory laparotomy H/O: hysterectomy History of back surgery Family history: Dad (asbestosis and CAD); Mom Hypothyroidism Social History: Lives at home ; Devices: none Smoker: Never Etoh hx: none Drug hx: none CODE STATUS: FULL CODE Baseline Functionality: Fully functional does her own ADLs Allergies: Reglan (anaphylaxis); tramadol (unknown) Home Medications: Please see med Rec PHYSICAL EXAM: VS: 128/77; 77; 22; 88% on NR mask and Hi Flow O2 ?General: Alert oriented x3 no acute distress. Speaking full sentences. Speech is well articulated, thought process is coherent. Following all commands. No accessory muscle use or tachypnea. ?Skin: Intact, no lesions, edema, erythema, clubbing or cyanosis. No ulcers. ? HEENT: Head is normocephalic, atraumatic, pupils equal round reactive to light accommodation bilaterally. Extraocular movements appear intact. Buccal mucosa is moist, Neck is supple without lymphadenopathy. ?Cardiac: Clear S1-S2, no murmurs rubs or gallops. ?Pulmonary: Coarsed bilaterally with expiratory wheezes, no crackle or rhonchi ?Abdomen: Protuberant, positive bowel sounds in all 4 quadrants. Soft, nontender, no rebound or guarding. ?Musculoskeletal: Moving all 4 extremities upon request a major joints, there is no crepitus or tenderness. The strength is 5/5 bilaterally and throughout all 4 extremities. Gait not assessed at this point. ?Neurologic: As above, cranial nerves 2-12 are grossly intact. No focal deficits noted. Motor strength as above. ?Vascular: 2+ pulses upper and lower extremities distally. SIGNIFICANT LABORATORY DATA: Wbc 8.2; hg 8.5; hct 26.8; plt 194; Na 135; k 4.5; cl 104; bicarb 17; BUN 80 / Cr 4.2 (better than previous baseline 5.32) glucose 166. Ca 7.4; albumin 2.8; BNP 572; Lactic Acid 1.0; mag 2.1; Ferritin 2922; LFts' normal; LDH 709; Dddimer 2075; Procalcitonin 17.83 REVIEW OF IMAGES: CXR IMPRESSION: New dramatic change since the last chest 01/07/2020. There is diffuse significant bilateral pneumonia. EKG REVIEW: ASSESSMENT AND PLAN: 1. Bilat C19 pneumonia without ANY evidence of Sepsis 2.Acute hypoxemic respiratory failure, secondary to the above and worsen by hx Pulmonary Fibrosis 3. Acute kidney injury in the setting of pauciimmune focal necrotizing GN; ANCA MPO positive=== recently diagnosed 4. Elevated Ddimmer due to # 1 at risk of micro and large emboli 5. Anemia NOS r/o Iron deficiency, microbleed GI track 6. Metabolic Acidosis due to all the above Admit to ICU, I and O's, VS, cont hiflow O2 and NRmask; Morphine prn resp distress and pain; nebs; will consult with renal about Vit C dose in renal failure, will give Zinc, Melatonin, Vit D 3, B complex, continue solumedrol for now and check with renal in am, thiamine, Mag, and atorvastatin, will monitor labs including D dimmer, CRP, ferritin and procalcitonin, check other labs including phos and mag, VBG, monitor h/h closely as pt is anemic, check stool occult blood. GI PROPHYLAXIS: Renally adjusted Pepcid DVT PROPHYLAXIS: Will start Heparin full dose without load as pt is anemic and had some reported bleeding during her recent kidney biopsy Critical care time used for critical evaluation of this patient, diagnosis, treatment and coordination of care, review her records and documentation TOTAL CRITICAL CARE TIME 90 MIN , free of any procedures that may be done in the near future. Patient's care was discussed in detail with Dr. Swanson. He is aware of all the above as well as the plan of care for this patient. 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 If so, by whom?: No Do you feel safe in your current relationship?: No Is there a partner from a previous relationship who is making you feel unsafe now?: No Are you made to feel afraid or neglected: No Advance Directives: No Advance Directives Information Provided: No Do you have thoughts of harming others: None Do you have a plan to hurt others: No Plan Recently lost weight without trying: No service: No Current occupational status: unemployed Meds Allergies Allergy/AdvReac Type Severity Reaction Status Date / Time metoclopramide [Reglan] Allergy Unknown anaphylaxis Verified 01/01/20 12:04 tramadol [TRAMADOL] Allergy Unknown UNKNOWN, Verified 01/07/20 18:35 seizure, seizure Home Medications Medication Instructions Recorded Confirmed Type albuterol sulfate 90 mcg/actuation 2 puff INHALATION Q6H PRN 12/24/19 01/21/20 History aerosol inhaler [id number]-dcyvazonjvnay-fvwvtore 1 cap PO TID 12/24/19 01/21/20 History 50 mg-325 mg-40 mg capsule fluticasone propionate 50 1 spray INTRANASAL BID 12/24/19 01/21/20 History mcg/actuation nasal spray,suspension Physical Exam Vital Signs: Vital Signs: Last Vital Signs Temp 98.5 F 01/21/20 13:21 Pulse 74 01/21/20 20:51 Resp 20 01/21/20 20:51 BP 127/74 01/21/20 20:51 Pulse Ox 88 L 01/21/20 20:51 Body Mass Index 23.0 Results Labs CBC and Chem 7: 01/22/20 05:37 01/22/20 05:37 Labs: Laboratory Results - last 24 hr 01/21/20 01/21/20 01/21/20 13:55 13:55 13:55 MCV MCH MCHC RDW Plt Count MPV Immature Gran % (Auto) Neut % (Auto) Lymph % (Auto) [place] % (Auto) Eos % (Auto) Baso % (Auto) Lymph # (Auto) [place] # (Auto) Eos # (Auto) Baso # (Auto) Abs Immat Gran (auto) Absolute Neuts (auto) Absolute Nucleated RBC Nucleated RBC % (auto) Smear Tech's Comments D-Dimer Hold Blue Top ABG pH ABG pCO2 ABG pO2 ABG HCO3 ABG O2 Saturation ABG Base Excess Oxygen Given Anion Gap 19 Estim Creat Clear Calc 15.0 Estimated GFR 11 Random Glucose 161 H Lactic Acid Calcium 7.4 L Magnesium 2.1 Ferritin 2922 H Total Bilirubin 0.4 Direct Bilirubin 0.2 AST 46 H D ALT 30 Alkaline Phosphatase 193 H Lactate Dehydrogenase 709 H Troponin I High Sens 202.3 H D C-Reactive Protein 26.42 H B-Natriuretic Peptide 572 H Total Protein 5.8 L Albumin 2.8 L Procalcitonin 17.83 Coronavirus (PCR) Influenza Type A (PCR) Influenza Type B (PCR) RSV RNA Qual (PCR) 01/21/20 01/21/20 01/21/20 13:56 13:56 13:56 MCV 86.7 MCH 27.5 MCHC 31.7 RDW 14.6 Plt Count 194 D MPV 10.0 Immature Gran % (Auto) 1.3 H Neut % (Auto) 95.3 H Lymph % (Auto) 1.6 L [place] % (Auto) 1.8 L Eos % (Auto) 0.0 Baso % (Auto) 0.0 Lymph # (Auto) 0.1 L [place] # (Auto) 0.2 Eos # (Auto) 0.0 Baso # (Auto) 0.0 Abs Immat Gran (auto) 0.11 H Absolute Neuts (auto) 7.8 Absolute Nucleated RBC 0.000 Nucleated RBC % (auto) 0.0 Smear Tech's Comments VERIFIED D-Dimer 2074 Hold Blue Top SEE NOTE ABG pH ABG pCO2 ABG pO2 ABG HCO3 ABG O2 Saturation ABG Base Excess Oxygen Given Anion Gap Estim Creat Clear Calc Estimated GFR Random Glucose Lactic Acid 1.0 Calcium Magnesium Ferritin Total Bilirubin Direct Bilirubin AST ALT Alkaline Phosphatase Lactate Dehydrogenase Troponin I High Sens C-Reactive Protein B-Natriuretic Peptide Total Protein Albumin Procalcitonin Coronavirus (PCR) Influenza Type A (PCR) Influenza Type B (PCR) RSV RNA Qual (PCR) 01/21/20 01/21/20 14:04 14:45 MCV MCH MCHC RDW Plt Count MPV Immature Gran % (Auto) Neut % (Auto) Lymph % (Auto) [place] % (Auto) Eos % (Auto) Baso % (Auto) Lymph # (Auto) [place] # (Auto) Eos # (Auto) Baso # (Auto) Abs Immat Gran (auto) Absolute Neuts (auto) Absolute Nucleated RBC Nucleated RBC % (auto) Smear Tech's Comments D-Dimer Hold Blue Top ABG pH 7.31 L ABG pCO2 32 ABG pO2 66 L ABG HCO3 16 L ABG O2 Saturation 90.4 ABG Base Excess -9.6 Oxygen Given 100% Anion Gap Estim Creat Clear Calc Estimated GFR Random Glucose Lactic Acid Calcium Magnesium Ferritin Total Bilirubin Direct Bilirubin AST ALT Alkaline Phosphatase Lactate Dehydrogenase Troponin I High Sens C-Reactive Protein B-Natriuretic Peptide Total Protein Albumin Procalcitonin Coronavirus (PCR) POSITIVE A Influenza Type A (PCR) NEGATIVE Influenza Type B (PCR) NEGATIVE RSV RNA Qual (PCR) NEGATIVE Imaging Radiologist's Impressions: Impressions Chest X-Ray 01/21/20 13:25
[2020-01-21 21:20] LABS: Troponin-I High Sensitivity 118.5 ng/L (<3.5-17.0)
--- NOTE | 2020-01-21 22:08 | PC.NURSE ---
PT SITTING UP AND WATCHING TV. PT COUGHING AND GETS ANXIOUS WHEN OXYGEN DROPS. PT AWAITING FOR ROOM ASSIGNMENT. VS OBTAINED. PT REMAINS ON NRB MASK AND OXIMIZER WITH PO RANGING FROM 88%-90%. PT RESTLESS AND ALWAYS WATCHING MONITOR FOR PO READINGS. WILL CONTINUE TO MONITOR PT
--- NOTE | 2020-01-21 23:01 | PC.NURSE ---
REPORT GIVEN TO TIMO HOFFMANN. PT AWAITING TO GO TO FLOOR. NO CHG IN PT'S CONDITION AT THIS TIME. WILL CONTINUE TO MONITOR PT.
--- NOTE | 2020-01-21 23:35 | PC.NURSE ---
NO CHG IN PT'S CONDITION. PT BEING TRANSFERRED TO ICU AT THIS TIME.
[2020-01-22] VITALS (35 sets, daily range): BP systolic 107–157; BP diastolic 69–82; PULSE 66–120; RESP 18–33; TEMP 36.1–38.2; O2SAT 76–96; BMI 23.6
[2020-01-22 01:15] LABS: Glucose Urine UA NEG (NEG); Leukocyte Esterase Urine NEG (NEG); Nitrite Urine NEG (NEG); Specific Gravity - Urine 1.025 (1.005-1.025); Urine Blood 3+ (NEG); Urine Ketones NEG (NEG); Urine Protein 2+ MG/DL (NEG-TRACE)
[2020-01-22 01:18] LABS: Appearance Urine CLEAR; Color Urine YELLOW
[2020-01-22 02:30] LABS: Bacteria Urine TRACE /LPF; Squamous Epithelial Cell Urine TRACE /LPF; WBC Urine 0-2 /HPF (0-4); Waxy Casts Urine 0-2 /LPF
[2020-01-22] MEDS: Magnesium Sulfate/H2O 2 GM/50 ML PIGGYBACK IV (02:34)
[2020-01-22] MEDS: methylPREDNISolone Sod Succ/PF 125 MG/2 ML VIAL 80 MG IVPUSH ×2 (02:47→13:32)
[2020-01-22] MEDS: Thiamine HCL 200 MG/2 ML VIAL IVPUSH ×2 (02:47→21:30)
[2020-01-22] MEDS: Morphine Sulfate 2 MG/ML CARTRIDGE IVPUSH ×2 (03:00→06:42)
[2020-01-22 03:32] LABS: INTERNATIONAL NORM RATIO 1.1 (0.9-1.1); Partial Thromboplastin Time 33.1 SEC (24.1-38.0); Prothrombin Time 12.6 SEC (10.8-13.0)
[2020-01-22] MEDS: Heparin Sodium,Porcine/1/2NS 25,000 UNIT/250 ML IV.SOLN 9.62 UNIT IVCONT (04:15)
[2020-01-22 06:01] LABS: Hematocrit 26.7 % (37-47); Hemoglobin 8.5 g/dl (12.0-16.0); Imm Gran Abs Auto 0.05 X10*3/uL (0.00-0.03); Imm Gran Pct Auto 0.8 % (0.0-0.4); Lymphocytes Absolute Auto 0.1 X10*3/uL (1.2-4.9); Lymphocytes Percent Auto 1.9 % (20-40); MANUAL DIFF FLAG SCAN; Mean Corpuscular HGB Conc 31.8 g/dl (31.0-35.0); Mean Corpuscular Hemoglobin 27.8 pg (27.0-33.0); Mean Corpuscular Volume 87.3 fL (80-98); Mean Platelet Volume 10.3 fL (9.4-12.3); Monocytes Absolute Auto 0.1 X10*3/uL (0.1-1.2); Neutrophils Absolute Auto 6.1 X10*3/uL (2.0-8.3); Neutrophils Percent Auto 95.3 % (45-73); Platelet Count 184 X10*3/uL (160-400); Red Blood Count 3.06 X10*6/uL (4.20-5.50); Red Cell Distribution Width 14.6 % (11.0-16.0); SCAN SMEAR FLAG 1; White Blood Count 6.4 X10*3/uL (4.8-10.8)
[2020-01-22 06:28] LABS: Base Excess VBG -10.6 mmol/L; HCO3 VBG 14 mmol/L; Oxygen Saturation VBG 89.6 %; PCO2 VBG 29 mmhg; PO2 VBG 62 mmhg; pH VBG 7.32 (7.32-7.43)
[2020-01-22 06:32] LABS: Anion Gap 19 (12-20); Blood Urea Nitrogen 83 mg/dL (9-16); C Reactive Protein 23.99 mg/dL (< or = 0.50); Calcium 7.5 mg/dL (8.4-10.2); Carbon Dioxide 14 mmol/L (22-29); Chloride 108 mmol/L (96-108); Glucose Random 104 mg/dL (60-115); Magnesium 2.7 mg/dL (1.6-2.6); Phosphorus 8.6 mg/dL (2.7-4.5); Potassium 4.5 mmol/l (3.3-5.1); Sodium 136 mmol/L (135-145)
[2020-01-22 06:35] LABS: Creatinine Clr Calc Pharmacy 15.4; Estimated Glomerular Filt Rate 11
[2020-01-22 06:45] LABS: D Dimer 1766 NG/ML; Procalcitonin 17.92 ng/mL
[2020-01-22 06:52] LABS: SLIDE REVIEW VERIFIED
[2020-01-22 07:23] LABS: OBS Int Ctl Valid YES; OBS1 NEG (NEG)
[2020-01-22 07:25] LABS: Ferritin 3477 ng/mL (10-250)
--- NOTE | 2020-01-22 07:33 | PC.NURSE ---
Shift eval: Admitted to ICU at approx midnight to room 254 from ER. Patient on high flow 60 liters, 100%, and non rebreather. Unable to titrate off non-rebreather r/t O2sat went down to 87%, unable. Patient dyspnea on exertion. O2sat down to 80's with activity, up to commode. Patient up to commode x1, 1 small brown BM. Occult stool sample sent to lab. Patient started on heparip drip r/t elevated d-dimer/covid/risk for clots - started at 14unit/kg/hr per protocol, w/ baseline PTT. PTT-HD due to be drawn again at 1030. Lungs congested/crackles. Non-productive cough intermit. BP stable, Afebrile. Medicated w/ morphine
[2020-01-22] MEDS: Albuterol/Iprat 2.5/0.5MG 3 ML AMPUL.NEB INHALE ×3 (07:40→19:26)
[2020-01-22] MEDS: 0.9 % Sodium Chloride Flush 3 ML SYRINGE IVFLUSH ×2 (08:31→17:56)
[2020-01-22] MEDS: Zinc Sulfate 220 MG CAPSULE PO (09:09)
[2020-01-22] MEDS: Ascorbic Acid 500 MG TABLET 1000 MG PO (09:09)
[2020-01-22] MEDS: Famotidine/PF 20 MG/2 ML VIAL IVPUSH ×2 (09:11→21:30)
[2020-01-22] MEDS: HYDROmorphone HCl 0.5 MG/0.5 ML SYRINGE IVPUSH ×4 (09:25→19:41)
--- NOTE | 2020-01-22 10:15 | MHC.CLN ---
DISCUSSED PT DURING MDRs WILL START REGULAR DIET WITH NUTRITION SUPPLEMENTS PER MD FOLLOWING
[2020-01-22] MEDS: Cholecalciferol (Vitamin D3) 25 MCG TABLET 200 MCG PO (10:58)
[2020-01-22] MEDS: HYDROcodone/Homat 5/1.5/5 ML 5 ML SYRUP PO (11:10)
[2020-01-22] MEDS: ondansetron HCL 4 MG/2 ML VIAL IVPUSH (11:20)
[2020-01-22 11:26] LABS: PTT Heparin Drip 45.9 SEC (53-77.9)
[2020-01-22 11:57] LABS: Alanine Aminotransferase 26 U/L (0-31); Albumin Level 2.7 g/dL (3.5-5.0); Alkaline Phosphatase 163 U/L (39-117); Aspartate Amino Transferase 40 U/L (5-31); Bilirubin Direct < 0.2 mg/dL (0.0-0.5); Bilirubin Total 0.4 mg/dL (0.0-1.0); Total Protein 5.9 g/dL (6.5-8.0)
--- NOTE | 2020-01-22 12:39 | P.PNCC_ITS ---
Subjective Subjective Date of Service: 01/22/20 Interval History: Ms. Ornelas was admitted to the ICU last night with acute hypoxemic respiratory failure 2? COVID pneumonia. 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 She was discharged on 01/15 on cyclophosphamide and prednisone 60 mg daily. She was COVID-19 PCR negative on 12/23 and 01/06, but chest CT on 01/06 did show infiltrates in the periphery of both lower lobes, albeit not typical for C19. The patient was BIBA yesterday afternoon for worsening productive cough of white sputum with bloody streaks, SOB, chest discomfort, and decreased urination since yesterday. Admits to exposure to COVID-19 from family member on . Denied fever, chills, nausea/vomiting, dysuria/hematuria. In the ED, initial RR was 24, with Sat low 70?s on room air, 97% on NRBFM. Chest x-ray showed striking diffuse bilateral mid and lower lung patchy opac ities suggestive of pneumonia. Labs are notable for normal white count with marked lymphopenia. All COVID biomarkers significantly elevated. BUN and creatinine were 80/4.2 (was 93/4.1 on discharge on January 15). The patient's saturation deteriorated in the ED and she was put on high-flow ashley al cannula. On 100%/60 L high-flow, sat dropped into the 70s. At that point the patient was turned prone and a non-rebreather face mask was added to the high-flow. Her sat bumped up to the low to mid 90s, and she was comfortable and she declined intubation. The patient was given solumedrol 125 mg in the ED. The hospitalist service declined the admission so we admitted her to ICU. In the ICU, we started her on the EVIL COVID protocol for severe dz, including solumedrol 80 mg bid and full dose heparinization. (No Ivermectin). Overnite she was fairly comfortable, got only one dose of morphine. Today, she?s mostly comfortable except for bothersome cough. Mental status is normal, fully alert, oriented, and appropriate. I had a good conversation with her. Breathing easy with no accessory muscle use and no increased work of breathing other than that attributable to her respiratory rate. See Vital Signs below. Heart rate is 85, sinus rhythm. Blood pressure is 146/77. Respiratory rate is 24-27, sat is 90-93% on HFNC 60L/100% + NRBFM on flush. Peripheral venous blood gas shows 7.32/29/-10. She has been afebrile throughout. LABORATORY DATA: As below. Notably, white count is still normal, BUN and creatinine steady at 83/4.1, phosphorus is 8.6, bicarb is 14, potassium is 4.5, D-dimer is down to 1766, ferritin is up to 3477, CRP is down slightly to 24, procalcitonin is unchanged at about 18. IMPRESSION: 1. Bilat C19 pneumonia. Not entirely clear to me when she became infected. Likely earlier than (5 days ago). Heartened to see that DDimer is down, but Ferritin is up and nearing levels suggestive of MAS. We have her on ?full ani? EVMS COVID protocol (minus ivermectin and doxycycline). Have discussed the possibility of plasma exchange with Dr. ann. He will discuss with [facility]. 2. Acute hypoxemic respiratory failure, secondary to the above. 3. Acute kidney injury, diagnosed during a previous hospitalization, as noted above. Discussed at length with Dr. Ann. According to his conversation with the patient, she never took the cyclophosphamide. He recommends continuing with Solu-Medrol 80 mg bid. He will look into the acceptable dose of vitamin-C. At this point time, there is no indication for tracheal intubation. I do pablo ludwin this patient?s prognosis is quite grim, however. Given her age, she seemed to be an excellent candidate for ECMO. Neeru Arita from the ED called around yesterday afternoon, and nobody was willing to except her for ECMO because of her renal function. The patient also needs a central line. We?ll place one today. Monitoring: Daily VBG, DDimer, CRP, Ferritin, procalcitonin, and Mg. Critical care time (including extended d?s/w Dr. Ann, Dr. Chatterjee, Dr. Cardenas, Dr. Jimenez and pharmacy): 75 + min. Physical Exam Vital Signs: Vital Signs: Last Vital Signs Temp 97.7 F 01/22/20 11:55 Pulse 89 01/22/20 11:55 Resp 25 H 01/22/20 12:36 BP 146/77 H 01/22/20 11:55 Pulse Ox 88 L 01/22/20 11:55 Body Mass Index 23.6 Objective Data Labs CBC & Chem 7: 01/22/20 05:37 01/22/20 05:37 Labs: Laboratory Results - last 24 hr 01/21/20 01/21/20 01/21/20 13:55 13:55 13:55 WBC RBC Hgb Hct MCV MCH MCHC RDW Plt Count MPV Immature Gran % (Auto) Neut % (Auto) Lymph % (Auto) [place] % (Auto) Eos % (Auto) Baso % (Auto) Lymph # (Auto) [place] # (Auto) Eos # (Auto) Baso # (Auto) Abs Immat Gran (auto) Absolute Neuts (auto) Absolute Nucleated RBC Nucleated RBC % (auto) Smear Tech's Comments PT INR APTT PTT (Heparin Protocol) D-Dimer Hold Blue Top ABG pH ABG pCO2 ABG pO2 ABG HCO3 ABG O2 Saturation ABG Base Excess VBG pH VBG pCO2 VBG pO2 VBG HCO3 VBG O2 Saturation VBG Base Excess Oxygen Given Sodium 135 Potassium 4.5 D Chloride 104 Carbon Dioxide 17 L Anion Gap 19 BUN 80 H* Creatinine 4.20 H* Estim Creat Clear Calc 15.0 Estimated GFR 11 Random Glucose 161 H Lactic Acid Calcium 7.4 L Phosphorus Magnesium 2.1 Ferritin 2922 H Total Bilirubin 0.4 Direct Bilirubin 0.2 AST 46 H D ALT 30 Alkaline Phosphatase 193 H Lactate Dehydrogenase 709 H Troponin I High Sens 202.3 H D C-Reactive Protein 26.42 H B-Natriuretic Peptide 572 H Total Protein 5.8 L Albumin 2.8 L Procalcitonin 17.83 Urine Color Urine Appearance Urine pH Ur Specific [place] Urine Protein Urine Glucose (UA) Urine Ketones Urine Blood Urine Nitrite Ur Leukocyte Esterase Urine RBC Urine WBC Ur Squamous Epith Cells Urine Bacteria Epithelial Casts Granular Casts Waxy Casts Urine Yeast Stool Occult Blood Coronavirus (PCR) Influenza Type A (PCR) Influenza Type B (PCR) RSV RNA Qual (PCR) Blood Type Antibody Screen 11/30/20 11/30/20 11/30/20 13:56 13:56 13:56 WBC 8.2 RBC 3.09 L Hgb 8.5 L Hct 26.8 L MCV 86.7 MCH 27.5 MCHC 31.7 RDW 14.6 Plt Count 194 D MPV 10.0 Immature Gran % (Auto) 1.3 H Neut % (Auto) 95.3 H Lymph % (Auto) 1.6 L [place] % (Auto) 1.8 L Eos % (Auto) 0.0 Baso % (Auto) 0.0 Lymph # (Auto) 0.1 L [place] # (Auto) 0.2 Eos # (Auto) 0.0 Baso # (Auto) 0.0 Abs Immat Gran (auto) 0.11 H Absolute Neuts (auto) 7.8 Absolute Nucleated RBC 0.000 Nucleated RBC % (auto) 0.0 Smear Tech's Comments VERIFIED PT 12.6 INR 1.1 APTT 33.1 PTT (Heparin Protocol) D-Dimer 2075 Hold Blue Top SEE NOTE ABG pH ABG pCO2 ABG pO2 ABG HCO3 ABG O2 Saturation ABG Base Excess VBG pH VBG pCO2 VBG pO2 VBG HCO3 VBG O2 Saturation VBG Base Excess Oxygen Given Sodium Potassium Chloride Carbon Dioxide Anion Gap BUN Creatinine Estim Creat Clear Calc Estimated GFR Random Glucose Lactic Acid 1.0 Calcium Phosphorus Magnesium Ferritin Total Bilirubin Direct Bilirubin AST ALT Alkaline Phosphatase Lactate Dehydrogenase Troponin I High Sens C-Reactive Protein B-Natriuretic Peptide Total Protein Albumin Procalcitonin Urine Color Urine Appearance Urine pH Ur Specific [place] Urine Protein Urine Glucose (UA) Urine Ketones Urine Blood Urine Nitrite Ur Leukocyte Esterase Urine RBC Urine WBC Ur Squamous Epith Cells Urine Bacteria Epithelial Casts Granular Casts Waxy Casts Urine Yeast Stool Occult Blood Coronavirus (PCR) Influenza Type A (PCR) Influenza Type B (PCR) RSV RNA Qual (PCR) Blood Type Antibody Screen 01/21/20 01/21/20 01/21/20 14:04 14:45 20:02 WBC RBC Hgb Hct MCV MCH MCHC RDW Plt Count MPV Immature Gran % (Auto) Neut % (Auto) Lymph % (Auto) [place] % (Auto) Eos % (Auto) Baso % (Auto) Lymph # (Auto) [place] # (Auto) Eos # (Auto) Baso # (Auto) Abs Immat Gran (auto) Absolute Neuts (auto) Absolute Nucleated RBC Nucleated RBC % (auto) Smear Tech's Comments PT INR APTT PTT (Heparin Protocol) D-Dimer Hold Blue Top ABG pH 7.31 L ABG pCO2 32 ABG pO2 66 L ABG HCO3 16 L ABG O2 Saturation 90.4 ABG Base Excess -9.6 VBG pH VBG pCO2 VBG pO2 VBG HCO3 VBG O2 Saturation VBG Base Excess Oxygen Given 100% Sodium Potassium Chloride Carbon Dioxide Anion Gap BUN Creatinine Estim Creat Clear Calc Estimated GFR Random Glucose Lactic Acid Calcium Phosphorus Magnesium Ferritin Total Bilirubin Direct Bilirubin AST ALT Alkaline Phosphatase Lactate Dehydrogenase Troponin I High Sens 118.5 H C-Reactive Protein B-Natriuretic Peptide Total Protein Albumin Procalcitonin Urine Color Urine Appearance Urine pH Ur Specific [place] Urine Protein Urine Glucose (UA) Urine Ketones Urine Blood Urine Nitrite Ur Leukocyte Esterase Urine RBC Urine WBC Ur Squamous Epith Cells Urine Bacteria Epithelial Casts Granular Casts Waxy Casts Urine Yeast Stool Occult Blood Coronavirus (PCR) POSITIVE A Influenza Type A (PCR) NEGATIVE Influenza Type B (PCR) NEGATIVE RSV RNA Qual (PCR) NEGATIVE Blood Type Antibody Screen 01/22/20 01/22/20 01/22/20 00:29 05:37 05:37 WBC 6.4 RBC 3.06 L Hgb 8.5 L Hct 26.7 L MCV 87.3 MCH 27.8 MCHC 31.8 RDW 14.6 Plt Count 184 MPV 10.3 Immature Gran % (Auto) 0.8 H Neut % (Auto) 95.3 H Lymph % (Auto) 1.9 L [place] % (Auto) 2.0 Eos % (Auto) 0.0 Baso % (Auto) 0.0 Lymph # (Auto) 0.1 L [place] # (Auto) 0.1 Eos # (Auto) 0.0 Baso # (Auto) 0.0 Abs Immat Gran (auto) 0.05 H Absolute Neuts (auto) 6.1 Absolute Nucleated RBC 0.000 Nucleated RBC % (auto) 0.0 Smear Tech's Comments VERIFIED PT INR APTT PTT (Heparin Protocol) D-Dimer 1766 Hold Blue Top ABG pH ABG pCO2 ABG pO2 ABG HCO3 ABG O2 Saturation ABG Base Excess VBG pH VBG pCO2 VBG pO2 VBG HCO3 VBG O2 Saturation VBG Base Excess Oxygen Given Sodium Potassium Chloride Carbon Dioxide Anion Gap BUN Creatinine Estim Creat Clear Calc Estimated GFR Random Glucose Lactic Acid Calcium Phosphorus Magnesium Ferritin Total Bilirubin Direct Bilirubin AST ALT Alkaline Phosphatase Lactate Dehydrogenase Troponin I High Sens C-Reactive Protein B-Natriuretic Peptide Total Protein Albumin Procalcitonin Urine Color YELLOW Urine Appearance CLEAR Urine pH 6.0 Ur Specific [place] 1.025 Urine Protein 2+ H Urine Glucose (UA) NEG Urine Ketones NEG Urine Blood 3+ H Urine Nitrite NEG Ur Leukocyte Esterase NEG Urine RBC 10-14 H Urine WBC 0-2 Ur Squamous Epith Cells TRACE Urine Bacteria TRACE Epithelial Casts 1-4 Granular Casts 5-9 Waxy Casts 0-2 Urine Yeast 1+ Stool Occult Blood Coronavirus (PCR) Influenza Type A (PCR) Influenza Type B (PCR) RSV RNA Qual (PCR) Blood Type Antibody Screen 01/22/20 01/22/20 01/22/20 05:37 05:37 05:37 WBC RBC Hgb Hct MCV MCH MCHC RDW Plt Count MPV Immature Gran % (Auto) Neut % (Auto) Lymph % (Auto) [place] % (Auto) Eos % (Auto) Baso % (Auto) Lymph # (Auto) [place] # (Auto) Eos # (Auto) Baso # (Auto) Abs Immat Gran (auto) Absolute Neuts (auto) Absolute Nucleated RBC Nucleated RBC % (auto) Smear Tech's Comments PT INR APTT PTT (Heparin Protocol) D-Dimer Hold Blue Top ABG pH ABG pCO2 ABG pO2 ABG HCO3 ABG O2 Saturation ABG Base Excess VBG pH 7.32 VBG pCO2 29 VBG pO2 62 VBG HCO3 14 VBG O2 Saturation 89.6 VBG Base Excess -10.6 Oxygen Given Sodium 136 Potassium 4.5 Chloride 108 Carbon Dioxide 14 L Anion Gap 19 BUN 83 H* Creatinine 4.10 H* Estim Creat Clear Calc 15.4 Estimated GFR 11 Random Glucose 104 D Lactic Acid Calcium 7.5 L Phosphorus 8.6 H Magnesium 2.7 H Ferritin 3477 H Total Bilirubin Direct Bilirubin AST ALT Alkaline Phosphatase Lactate Dehydrogenase Troponin I High Sens C-Reactive Protein 23.99 H B-Natriuretic Peptide Total Protein Albumin Procalcitonin 17.92 Urine Color Urine Appearance Urine pH Ur Specific [place] Urine Protein Urine Glucose (UA) Urine Ketones Urine Blood Urine Nitrite Ur Leukocyte Esterase Urine RBC Urine WBC Ur Squamous Epith Cells Urine Bacteria Epithelial Casts Granular Casts Waxy Casts Urine Yeast Stool Occult Blood Coronavirus (PCR) Influenza Type A (PCR) Influenza Type B (PCR) RSV RNA Qual (PCR) Blood Type Antibody Screen 01/22/20 01/22/20 01/22/20 06:53 11:07 11:07 WBC RBC Hgb Hct MCV MCH MCHC RDW Plt Count MPV Immature Gran % (Auto) Neut % (Auto) Lymph % (Auto) [place] % (Auto) Eos % (Auto) Baso % (Auto) Lymph # (Auto) [place] # (Auto) Eos # (Auto) Baso # (Auto) Abs Immat Gran (auto) Absolute Neuts (auto) Absolute Nucleated RBC Nucleated RBC % (auto) Smear Tech's Comments PT INR APTT PTT (Heparin Protocol) 45.9 L D-Dimer Hold Blue Top ABG pH ABG pCO2 ABG pO2 ABG HCO3 ABG O2 Saturation ABG Base Excess VBG pH VBG pCO2 VBG pO2 VBG HCO3 VBG O2 Saturation VBG Base Excess Oxygen Given Sodium Potassium Chloride Carbon Dioxide Anion Gap BUN Creatinine Estim Creat Clear Calc Estimated GFR Random Glucose Lactic Acid Calcium Phosphorus Magnesium Ferritin Total Bilirubin Direct Bilirubin AST ALT Alkaline Phosphatase Lactate Dehydrogenase Troponin I High Sens C-Reactive Protein B-Natriuretic Peptide Total Protein Albumin Procalcitonin Urine Color Urine Appearance Urine pH Ur Specific [place] Urine Protein Urine Glucose (UA) Urine Ketones Urine Blood Urine Nitrite Ur Leukocyte Esterase Urine RBC Urine WBC Ur Squamous Epith Cells Urine Bacteria Epithelial Casts Granular Casts Waxy Casts Urine Yeast Stool Occult Blood NEG Coronavirus (PCR) Influenza Type A (PCR) Influenza Type B (PCR) RSV RNA Qual (PCR) Blood Type A Positive Antibody Screen NEGATIVE 01/22/20 11:07 WBC RBC Hgb Hct MCV MCH MCHC RDW Plt Count MPV Immature Gran % (Auto) Neut % (Auto) Lymph % (Auto) [place] % (Auto) Eos % (Auto) Baso % (Auto) Lymph # (Auto) [place] # (Auto) Eos # (Auto) Baso # (Auto) Abs Immat Gran (auto) Absolute Neuts (auto) Absolute Nucleated RBC Nucleated RBC % (auto) Smear Tech's Comments PT INR APTT PTT (Heparin Protocol) D-Dimer Hold Blue Top ABG pH ABG pCO2 ABG pO2 ABG HCO3 ABG O2 Saturation ABG Base Excess VBG pH VBG pCO2 VBG pO2 VBG HCO3 VBG O2 Saturation VBG Base Excess Oxygen Given Sodium Potassium Chloride Carbon Dioxide Anion Gap BUN Creatinine Estim Creat Clear Calc Estimated GFR Random Glucose Lactic Acid Calcium Phosphorus Magnesium Ferritin Total Bilirubin 0.4 Direct Bilirubin < 0.2 AST 40 H ALT 26 Alkaline Phosphatase 163 H Lactate Dehydrogenase Troponin I High Sens C-Reactive Protein B-Natriuretic Peptide Total Protein 5.9 L Albumin 2.7 L Procalcitonin Urine Color Urine Appearance Urine pH Ur Specific [place] Urine Protein Urine Glucose (UA) Urine Ketones Urine Blood Urine Nitrite Ur Leukocyte Esterase Urine RBC Urine WBC Ur Squamous Epith Cells Urine Bacteria Epithelial Casts Granular Casts Waxy Casts Urine Yeast Stool Occult Blood Coronavirus (PCR) Influenza Type A (PCR) Influenza Type B (PCR) RSV RNA Qual (PCR) Blood Type Antibody Screen Progress Note: A&P Time Spent With Patient Time: Total time spent is greater than 50% in coordination of care (as documented) at patient's floor/unit and/or counseling patient: Total time spent with greater than 50% in coordination of care (as documented) at patient's floor/unit and/or counseling patient:: 0 Critical Care Time Critical Care Time (minutes): 90
--- NOTE | 2020-01-22 12:54 | MHC.CM.PN ---
Attempted to meet with patient in regards to d/c planning. Patient is currently short of breath with exertion. Spoke with patient's /HCP Emmanuel via telephone at [phone]. Patient lives with Emmanuel, ambulates independently and was active with [facility] when discharged from [facility] [place] [place] on 01/15.Patient is currently Covid positive. She was exposed by a family member at [facility]. Emmanuel is currently quarantining at home until he gets a Covid swab on . PCP verified. HCP verified to be on file. At this time, it is anticipated patient will return home with [facility]. Unsure of transportation needs at this time. Continue to monitor for d/c needs.
[2020-01-22 13:08] LABS: SARS COV2 IgG Negative (Negative)
[2020-01-22] MEDS: Heparin Sodium,Porcine 5,000 UNIT/ML VIAL 5496 UNIT IVPUSH (13:25)
[2020-01-22] MEDS: amLODIPine Besylate 5 MG TABLET 10 MG PO (13:32)
[2020-01-22] MEDS: carisoprodoL 350 MG TABLET PO (13:50)
--- NOTE | 2020-01-22 15:19 | PC.NURSE ---
Pt on non-rebreather and high flow o2 100%/60L, DOA, pt desats to high 70's upon movement or removal of non-rebreather, pt tolerating PO fluids and ensure shake, refused to eat lunch at this time left tray in room in case change of mind, was given IV dilaudid 0.5mg PRN WOB/pain x 3 doses on this shift, zofran given x1 for episode of vomiting, pt repositoned q2h, thakur cath intact, PRN soma given for reported back spasm, heparin bolus given per protocol this am after PTTHD draw, drip at 16 units/kg/hr, next PTTHD due at 1930, will cont to monitor
--- NOTE | 2020-01-22 15:50 | P.CNID_ITS ---
History of Present Illness Data of Consult Service Date: 01/22/20 Requesting physician: Mayco Swanson Primary Care Provider: Angel Vidal MD [facility] Reason for consult: COVID,shortness of breath She presents to hospital with cough and redtinged sputum over last day,worse this morning She had been hospitalized and discharged 01/16/2020 with CAP COVID test negative last month She has had visitors at home on arrival including her nephew just released from residential who had COVID She has felt very fatigued last day as well Review of Systems Cardiovascular: Cardiovascular: Reports dyspnea Respiratory: Respiratory: Reports dyspnea and Reports wheezing Musculoskeletal: Musculoskeletal: Reports myalgias Allergic/Immunologic: Allergic/Immunologic: Reports wheezing PMFSH Past Medical History Medical History (Updated 01/24/20 @ 00:00 by Paty Dashelton) YESSICA (acute kidney injury) Back pain COVID-19 Fibromyalgia 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) Pulmonary fibrosis Viral pneumonia Family History Family History Father CAD (coronary artery disease) Asbestosis Mother Hypothyroidism Surgical History Surgical History H/O exploratory laparotomy H/O: hysterectomy History of back surgery Social History Social History Household Members: Family Housing: House Smoking Status: Never smoker service: No Current occupational status: unemployed Meds Allergies Allergy/AdvReac Type Severity Reaction Status Date / Time metoclopramide [Reglan] Allergy Unknown anaphylaxis Verified 01/01/20 12:04 tramadol [TRAMADOL] Allergy Unknown UNKNOWN, Verified 01/07/20 18:35 seizure, seizure Physical Exam Vital Signs: Vital Signs: Last Vital Signs Temp 98.4 F 01/22/20 15:00 Pulse 84 01/22/20 15:00 Resp 21 H 01/22/20 15:15 BP 147/82 H 01/22/20 15:00 Pulse Ox 88 L 01/22/20 15:00 Body Mass Index 23.6 Const: General: cooperative Orientation/consciousness: oriented to person, oriented to place and oriented to time HENMT: Head: Yes normal to inspection Mouth: Normal oral and palatal mucosa present Resp: Auscultation: bronchovesicular breath sounds Cardio: Rate: regular rate Rhythm: regular rhythm GI: Palpation (GI): nontender : General: Yes no CVA tenderness Back/Spine/Pelvis: Back: no CVA tenderness Skin: General skin exam: no rashes or lesions noted Neuro: General: oriented to person, oriented to place and oriented to time Extrem: General: Yes full ROM Assessment and Plan (1) 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 (2) YESSICA (acute kidney injury): Status: Acute (3) COVID-19: Problem details: She is immunosuppresse with renal disease She has COVID and is now on high flow oxygen,100% with NRB 100% to achieve saturation 90 She will likely have guarded prognosis Status: Acute Would give steroids Would not give Remdesivir as RCTs have not shown benefit in high flow oxygen and up group Supportive care Can give convalescent plasma if desired,benefit unclear Results Labs CBC & Chem 7: 01/23/20 05:54 01/23/20 05:54 Labs: Short CBC 01/22/20 Range/Units 05:37 WBC 6.4 (4.8-10.8) X10*3/uL Hgb 8.5 L (12.0-16.0) g/dl Hct 26.7 L (37-47) % Plt Count 184 (160-400) X10*3/uL BMP 01/22/20 05:37 Sodium 136 Potassium 4.5 Chloride 108 Carbon Dioxide 14 L BUN 83 H* Creatinine 4.10 H* Calcium 7.5 L Liver Function 01/22/20 Range/Units 11:07 Total Bilirubin 0.4 (0.0-1.0) mg/dL Direct Bilirubin < 0.2 (0.0-0.5) mg/dL AST 40 H (5-31) U/L ALT 26 (0-31) U/L Alkaline Phosphatase 163 H (39-117) U/L Albumin 2.7 L (3.5-5.0) g/dL Urine 01/22/20 Range/Units 00:29 Urine Color YELLOW Urine Appearance CLEAR Urine pH 6.0 (5.0-8.0) Ur Specific [place] 1.025 (1.005-1.025) Urine Protein 2+ H (NEG-TRACE) MG/DL Urine Glucose (UA) NEG (NEG) MG/DL
--- NOTE | 2020-01-22 18:26 | PM.CNNEP ---
History of Present Illness Reason for Consult Consult date: 01/22/20 Reason for consult: RPGN ANCA vascuitis Chief Complaint Chief complaint: acute resp failure 2 covid pneumonia History of Present Illness Narrative: 54 y/o wF know to me from recent HHosp with YESSICA on backdrop of 1-2 yr h/o of recurrent resp illnesses and w/u revealed elevated EREN and was evaluated by Pulm ( Dr Saez) and Rheum and on last hosp UA revealed active Ur sediment and kidney Bx revealed pauci-IM GN MPO positive ( the ANCA was sent on two occassion but still unable to get resutls..I have talked with lab). 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 She was treated with pulse steroids and was supppose to start onPO cytoxan butnever recieved thecytoxan ( Insurane/Pharmacyissue) but she did go on high dse steroids and Bactrim prohylaxis She is now adm hypoxia req high dose O2 and CXR reveleing marked infitrates and given COVID positive along with elevated ferritn felt to be c/w COVID lung and was adm to ICU. SHe does report hemoptysis. She thinks she was exposed to COVID on [place] gathering ..although she avoid her Nephew ( work at [employer] and was per PT known to be positive). Review of Systems Review of Systems Constitutional: No Weight loss, No Fever, No Chills Eyes: No Eye Pain, No Swelling, No Redness, No Foreign Body, No Discharge, No Vision Changes Cardiovascular: + Chest Pain, + SOB, No Dyspnea on Exertion, No Orthopnea, + Edema, No Palpitations Respiratory: + Cough, + Sputum, + Dyspnea Gastrointestinal: No Nausea, No Vomiting, No Diarrhea, No Constipation, + Abdominal pain Genitourinary: No irregular bleeding, No Dysuria, No Urinary Frequency, No Hematuria,+ Urinary Flow Changes Musculoskeletal: No joint pain, No Myalgias, No Joint Swelling Skin: No Skin Lesions, No rash Neuro: No Weakness, No Numbness, No Paresthesias, No Loss of Consciousness, No Dizziness, No Headache PMFSH Past Medical History Medical History (Updated 01/22/20 @ 16:02 by Amanda Jimenez MD) YESSICA (acute kidney injury) Back pain COVID-19 Fibromyalgia 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 If so, by whom?: No Do you feel safe in your current relationship?: No Is there a partner from a previous relationship who is making you feel unsafe now?: No Are you made to feel afraid or neglected: No Advance Directives: No Advance Directives Information Provided: No Do you have thoughts of harming others: None Do you have a plan to hurt others: No Plan Recently lost weight without trying: No service: No Current occupational status: unemployed Meds Allergies Allergy/AdvReac Type Severity Reaction Status Date / Time metoclopramide [Reglan] Allergy Unknown anaphylaxis Verified 01/01/20 12:04 tramadol [TRAMADOL] Allergy Unknown UNKNOWN, Verified 01/07/20 18:35 seizure, seizure Home Medications Medication Instructions Recorded Confirmed Type albuterol sulfate 90 mcg/actuation 2 puff INHALATION Q6H PRN 12/24/19 01/21/20 History aerosol inhaler vrohqveoiw-aqpjtututzdxf-iplotegq 1 cap PO TID 12/24/19 01/21/20 History 50 mg-325 mg-40 mg capsule fluticasone propionate 50 1 spray INTRANASAL BID 12/24/19 01/21/20 History mcg/actuation nasal spray,suspension Physical Exam Vital Signs: Last Vital Signs Temp 98.4 F 01/22/20 15:00 Pulse 84 01/22/20 15:00 Resp 21 H 01/22/20 15:15 BP 147/82 H 01/22/20 15:00 Pulse Ox 88 L 01/22/20 15:00 Body Mass Index 23.6 Const General: cooperative Orientation/consciousness: oriented to person, oriented to place, oriented to time and patient oriented x3 Limitations: no limitations HENMT Head: Yes normal to inspection Ears: hearing grossly normal bilaterally General nose exam: Normal external nose present Face and sinus: Yes normal facial exam Mouth: Normal oral and palatal mucosa present Eyes General: appearance normal, both eyes and all related structures EOM: EOMs intact bilaterally Neck Neck: Yes normal visual inspection Resp Effort & Inspection: normal respiratory effort Auscultation: rhonchi throughout, diminished lung sounds and bronchovesicular breath sounds Cardio Rate: regular rate Rhythm: regular rhythm Heart sounds: S1 normal heart sound present and S2 normal heart sound present GI Inspection: Yes normal to inspection Palpation (GI): Soft to palpation, nontender, no guarding and not rigid General: Yes no CVA tenderness Back/Spine/Pelvis Back: no CVA tenderness Skin General skin exam: no rashes or lesions noted Rashes: no rashes Wounds: no wounds Neuro General: oriented to person, oriented to place, oriented to time and patient oriented x3 Gait exam (Neuro): Normal gait present Extrem Other: Mild bilateral LE edema General: Yes normal to inspection and Yes full ROM Results Lab Results Result Diagrams: 01/22/20 05:37 01/22/20 05:37 Lab results: Chemistry 01/21/20 01/22/20 13:55 05:37 Sodium 135 136 Potassium 4.5 D 4.5 Carbon Dioxide 17 L 14 L BUN 80 H* 83 H* Creatinine 4.20 H* 4.10 H* Calcium 7.4 L 7.5 L Phosphorus 8.6 H Hematology 01/21/20 01/22/20 13:56 05:37 WBC 8.2 6.4 Hgb 8.5 L 8.5 L Plt Count 194 D 184 Urinalysis 01/22/20 00:29 Urine Color YELLOW Urine Appearance CLEAR Urine pH 6.0 Ur Specific [place] 1.025 Urine Protein 2+ H Urine Glucose (UA) NEG Urine Ketones NEG Urine Blood 3+ H Urine Nitrite NEG Ur Leukocyte Esterase NEG Urine RBC 10-14 H Urine WBC 0-2 Ur Squamous Epith Cells TRACE Assessment and Plan (1) 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 (2) YESSICA (acute kidney injury): Status: Acute (3) COVID-19: Problem details: She is immunosuppresse with renal disease She has COVID and is now on high flow oxygen,100% with NRB 100% to achieve saturation 90 She will likely have guarded prognosis Status: Acute 1. YESSICA: c/w ANCA Vacultiis based on kidney Bx and anti MPO, slt improvement with pulse steroids but without additional IS drugs ( cytoxan or Rituxin) the renal outcome is exceedingly poor; ) in 06/2019 SCr was 1.0) 2. Severe Resp Failure: clinical presnetation most c/w COVID Lung although if infectioin occurred on then time course is relatively rapid for COIV lung..it raises ques if she could have been infective prior to dc from hosp ( 01/15) or is it possible that her resp failure is due in part or even predominatly to other causes such as ANCA pulm vasculitis PCP 3. NAGMA 4. Vol status: looks ok presently Disc: overall prognosis is poor given severit of lung injury and reanl failure; after d/w ICU ( Dr Swanson) we both felt that Plasmapheresis should be considered if possible as it could potential help the COVID lung and pulm vasculitis if this was indeed present. There are anecdotal reports of using pheresis insevere COIVD lung injury. We have contacted [facility] [place] not [place] the PT as they can not provide Pheresis ..nor can [facility] or [facility] PLAN: cont full supportive care as per ICU; no indication for HD at htis time; cont steroids as noted; no cytoxan; if available then would opt for a trial of pheresis; pulmconsilt; send sputum for PCP and consider treatng for PCP vs prophylaxis against PCP Will follow fawad with ICU
[2020-01-22 20:14] LABS: PTT Heparin Drip 56.7 SEC (53-77.9)
--- NOTE | 2020-01-22 20:36 | XR_ITS ---
EXAMINATION: XR CHEST CLINICAL INFORMATION: Left IJ placement COMPARISON: Chest x-ray 01/21/2020 TECHNIQUE: Frontal portable view of the chest was obtained. 8:39 PM FINDINGS: Tubes and lines: 1. Left IJ catheter tip at caval atrial junction in superior vena cava in good position. There is no pneumothorax. Extensive bilateral airspace opacities unchanged since prior study 01/21/2020. No pneumothorax. No large pleural effusion. XR/XR chest 1V IMPRESSION: 1. Left IJ catheter tip at caval atrial junction in superior vena cava in good position. There is no pneumothorax. 2. Persistent extensive bilateral airspace disease.
--- NOTE | 2020-01-22 20:53 | PC.NURSE ---
Addendum entered by Devika Crabtree RN 01/22/20 22:42: Over the course of the last few hours sats have been 70-85% on highflow and non-rebreather both at 100% fio2. Amando GARZA aware. Pt does appear comfortable at this time as she is resting in bed with eyes closed with RR of 30. Original Note: Pt remains on high flow and non-rebeather both at 100%fio2. When the patient is still and comfrortable sats are inhigh 80s-low 90s. Sats drop to 70s with patient movement or anxiety. Pt reluctant to take Dilaudid for wob but did accept x1 this shift. and Amando GARZA aware of sat trends with no further orders at this time. A central line was placed by Amando GARZA. Heparin drip remains running with PTT-HD obtained at 1930 within the therapeutic range. No changes made to drip at this time.
[2020-01-22] MEDS: Atorvastatin Calcium 80 MG TABLET PO (21:32)
[2020-01-23] VITALS (33 sets, daily range): BP systolic 116–158; BP diastolic 65–90; PULSE 6–106; RESP 21–39; TEMP 36.8–38.2; O2SAT 76–95; BMI 23.8
--- NOTE | 2020-01-23 | XR_ITS ---
EXAMINATION: XR CHEST CLINICAL INFORMATION: Shortness of breath COMPARISON: 01/22/2020 TECHNIQUE: Frontal view of the chest was obtained. FINDINGS: Left IJ central line tip lies in the region of the cavoatrial junction. Redemonstrated extensive bilateral airspace opacities, without significant change from 01/22/2020. Apices remain relatively spared. No evidence of pneumothorax or significant pleural effusion. Cardiomediastinal silhouette is grossly stable. No acute osseous findings are seen. XR/XR chest 1V IMPRESSION: No significant change from 01/22/2020, with redemonstrated extensive bilateral airspace opacities.
[2020-01-23] MEDS: HYDROmorphone HCl 0.5 MG/0.5 ML SYRINGE IVPUSH ×8 (00:24→15:36)
[2020-01-23] MEDS: Heparin Sodium,Porcine/1/2NS 25,000 UNIT/250 ML IV.SOLN 10.99 UNIT IVCONT (00:24)
[2020-01-23] MEDS: ondansetron HCL 4 MG/2 ML VIAL IVPUSH ×2 (00:31→11:00)
[2020-01-23] MEDS: 0.9 % Sodium Chloride Flush 3 ML SYRINGE IVFLUSH ×3 (00:42→15:36)
[2020-01-23 01:48] LABS: PTT Heparin Drip 59.3 SEC (53-77.9)
[2020-01-23] MEDS: methylPREDNISolone Sod Succ/PF 125 MG/2 ML VIAL 80 MG IVPUSH ×2 (03:01→13:48)
[2020-01-23] MEDS: HYDROcodone/Homat 5/1.5/5 ML 5 ML SYRUP PO (05:49)
[2020-01-23 06:44] LABS: Base Excess VBG -9.9 mmol/L; HCO3 VBG 16 mmol/L; PCO2 VBG 33 mmhg; PO2 VBG 36 mmhg; pH VBG 7.29 (7.32-7.43)
[2020-01-23 06:45] LABS: Oxygen Saturation VBG 62.1 %
[2020-01-23 06:47] LABS: Basophils Percent Auto 0.1 % (0-2); Hematocrit 26.4 % (37-47); Hemoglobin 8.5 g/dl (12.0-16.0); Imm Gran Abs Auto 0.08 X10*3/uL (0.00-0.03); Imm Gran Pct Auto 0.6 % (0.0-0.4); Lymphocytes Absolute Auto 0.1 X10*3/uL (1.2-4.9); Lymphocytes Percent Auto 0.8 % (20-40); MANUAL DIFF FLAG SCAN; Mean Corpuscular HGB Conc 32.2 g/dl (31.0-35.0); Mean Corpuscular Hemoglobin 27.3 pg (27.0-33.0); Mean Corpuscular Volume 84.9 fL (80-98); Mean Platelet Volume 10.6 fL (9.4-12.3); Monocytes Absolute Auto 0.2 X10*3/uL (0.1-1.2); Monocytes Percent Auto 1.7 % (2-11); Neutrophils Absolute Auto 11.9 X10*3/uL (2.0-8.3); Neutrophils Percent Auto 96.8 % (45-73); Platelet Count 244 X10*3/uL (160-400); Red Blood Count 3.11 X10*6/uL (4.20-5.50); Red Cell Distribution Width 14.6 % (11.0-16.0); SCAN SMEAR FLAG 1; White Blood Count 12.3 X10*3/uL (4.8-10.8)
[2020-01-23 07:06] LABS: Anion Gap 18 (12-20); Blood Urea Nitrogen 86 mg/dL (9-16); C Reactive Protein 17.52 mg/dL (< or = 0.50); Calcium 7.3 mg/dL (8.4-10.2); Carbon Dioxide 17 mmol/L (22-29); Chloride 106 mmol/L (96-108); Creatinine Clr Calc Pharmacy 15.9; Estimated Glomerular Filt Rate 12; Glucose Random 115 mg/dL (60-115); Phosphorus 5.9 mg/dL (2.7-4.5); Sodium 137 mmol/L (135-145)
[2020-01-23 07:20] LABS: Alanine Aminotransferase 22 U/L (0-31); Albumin Level 2.8 g/dL (3.5-5.0); Alkaline Phosphatase 201 U/L (39-117); Aspartate Amino Transferase 37 U/L (5-31); Bilirubin Direct 0.2 mg/dL (0.0-0.5); Bilirubin Total 0.5 mg/dL (0.0-1.0); Total Protein 5.6 g/dL (6.5-8.0)
[2020-01-23 07:25] LABS: D Dimer 942 NG/ML
[2020-01-23 07:36] LABS: Procalcitonin 12.72 ng/mL
[2020-01-23 08:03] LABS: SLIDE REVIEW VERIFIED
[2020-01-23 08:08] LABS: Ferritin 3396 ng/mL (10-250)
[2020-01-23] MEDS: Albuterol/Iprat 2.5/0.5MG 3 ML AMPUL.NEB INHALE ×2 (09:08→13:47)
--- NOTE | 2020-01-23 09:08 | MHC.CLN ---
RE: CONSULT PT REFUSED LUNCH YESTERDAY; ALSO VOMITED X 1 PT WITH [facility] TID IN PLACE TO INCREASE KCALS PT DID ACCEPT [facility] YESTERDAY PRIOR TO MEAL REFUSAL FOLLOWING
[2020-01-23] MEDS: Cholecalciferol (Vitamin D3) 25 MCG TABLET 200 MCG PO (10:13)
[2020-01-23] MEDS: carisoprodoL 350 MG TABLET PO (10:13)
[2020-01-23] MEDS: amLODIPine Besylate 5 MG TABLET 10 MG PO (10:14)
[2020-01-23] MEDS: Zinc Sulfate 220 MG CAPSULE PO (10:14)
[2020-01-23] MEDS: Thiamine HCL 200 MG/2 ML VIAL IVPUSH (10:15)
[2020-01-23] MEDS: Famotidine/PF 20 MG/2 ML VIAL IVPUSH (10:15)
--- NOTE | 2020-01-23 11:00 | MHC.CM.PN ---
Patient remains in ICU on high flow oxygen and NRB. Patient is from home with [facility]. Continue to monitor for d/c needs.
--- NOTE | 2020-01-23 12:41 | PM.CCPN ---
Subjective Subjective Date of Service: 01/23/20 Interval History: ICU PROGRESS NOTE AND TRANSFER SUMMARY Ms. Ornelas was admitted to the ICU on Jan 20 with acute hypoxemic respiratory failure 2? COVID pneumonia. 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 She was discharged on 01/15 on to be getting cyclophosphamide and prednisone 60 mg daily, but she never started on the cyclophosphamide bec of delivery issues. She was COVID-19 PCR negative on 12/23 and 01/06, but chest CT on 01/06 did show infiltrates in the posterior lower lobes bilat, albeit not typical for C19, that was read as ?subpleural cyst formation within the posterior basal segment of the lower lobes bilaterally, could be data entry representative of early manifestations of interstitial lung disease?. The patient was BIBA to the ED Jan 20 for worsening productive cough of white sputum with bloody streaks, SOB, chest discomfort, and decreased urination since yesterday. She reported to exposure to COVID-19 from a family member on . Denied fever, chills, nausea/vomiting, dysuria/hematuria. In the ED, initial RR was 24, with Sat low 70?s on room air, 97% on NRBFM. Chest x-ray showed striking diffuse bilateral mid and lower lung patchy opacities suggestive of pneumonia. Labs were notable for normal white count with marked lymphopenia. All COVID biomarkers were significantly elevated. BUN and creatinine were 80/4.2 (was 93/4.1 on discharge on January 15). The patient's saturation deteriorated in the ED and she was put on high-flow nasal cannula. On 100%/60 L high-flow, sat dropped into the 70s. At that point the patient was turned prone and a non-rebreather face mask was added to the high-flow. Her sat bumped up to the low to mid 90s, and she was comfortable and declined intubation. The patient was given solumedrol 125 mg in the ED. The hospitalist service declined the admission so we admitted her to ICU. In the ICU, we started her on the [facility] COVID protocol for severe dz, including solumedrol 80 mg bid and full dose heparinization. (No Ivermectin or doxy). Overnite and yesterday she was fairly comfortable, getting prn Dialudid for WOB. We placed a left IJ triple lumen catheter last night. Yesterday, SpO2 was mostly 88-90% on the HFNC 60L/100% + NRBFM on semi-flush. Last night, Sats were running 76-85%. This morning she?s Sat?ing 77-84% on the HFNC 60L/100% + NRBFM on full flush. She?s breathing easy with RR 21-26, no access musc use, no increased WOB other than that attributable to her resp rate. See Vital Signs below. Mental status is normal, fully alert, oriented, and appropriate. I had a good conversation with her. Heart rate is 100, sinus rhythm. Blood pressure is 158/78. Central venous blood gas this morning shows pH 7.29, pCO2 33, BE -9. Afebrile now. She had low grade temps, max 100.8 overnight last night, the first time she?s had fever. LABORATORY DATA: As below. Notably, white count is bumped to 12.3 this morning (was previously normal), BUN and creatinine steady at 86/3.9 (was 83/4.1 yest), phosphorus is down to 5.9, bicarb is 17, potassium is 4.0, D-dimer is down to 942, ferritin is steady at 3396, CRP is down to 17, procalcitonin is down to 12. CXR shows slight worsening of extensive bilat pneumonia with apical sparing. IMPRESSION: 1. Bilat C19 pneumonia. Not entirely clear to me when she became infected. Likely earlier than (5 days ago). Heartened to see that DDimer, CRP, and PCT are down, but oxygenation is clearly worse over last 24 hrs, as is her CXR. We have her on the complete [facility] COVID protocol (minus ivermectin and doxycycline). Discussed the possibility of plasma exchange with Dr. Ann. He spoke with staff at [facility] and [facility]. [facility] declined but Dr. Montenegro at [facility] accepted the patient. We are arranging transfer. We?ll transport on CPAP. Because of the decrease in her DDimer, I?ve d/c?d her heparin drip, put her on Lovenox ? mg/kg/day 2. Acute hypoxemic respiratory failure, secondary to the above. 3. New fever and leukocytosis. I?ll start her on Doxycycline. 4. Acute kidney injury, diagnosed during a previous hospitalization, as noted above. Discussed at length with Dr. Ann. According to his conversation with the patient, she never took the cyclophosphamide. He recommends continuing with Solu-Medrol 80 mg bid. We d/c?d the vitamin-C. At this point time, there is no indication for tracheal intubation. I do believe this patient?s prognosis is quite grim, however. Plan to transfer to [facility] for plasmapheresis. We've switched her over to CPAP. On CPAP 100%/+15, RR is 25, Vt 500-800 cc. Monitoring: Daily VBG, DDimer, CRP, Ferritin, procalcitonin, and Mg. Critical care time (including sign out to critical care at [facility], further d/w Dr. Ann and w [place] [place] to bedside): 75 + min. Please do not hesitate to call here to the ICU for further information. Telephone number [phone]. Physical Exam Vital Signs: Vital Signs: Last Vital Signs Temp 98.6 F 01/23/20 12:00 Pulse 105 H 01/23/20 12:00 Resp 28 H 01/23/20 12:00 BP 134/65 01/23/20 12:00 Pulse Ox 84 L 01/23/20 12:00 Body Mass Index 23.8 Objective Data Labs CBC & Chem 7: 01/23/20 05:54 01/23/20 05:54 Labs: Laboratory Results - last 24 hr 01/22/20 01/22/20 01/22/20 11:07 11:07 19:38 WBC RBC Hgb Hct MCV MCH MCHC RDW Plt Count MPV Immature Gran % (Auto) Neut % (Auto) Lymph % (Auto) [place] % (Auto) Eos % (Auto) Baso % (Auto) Lymph # (Auto) [place] # (Auto) Eos # (Auto) Baso # (Auto) Abs Immat Gran (auto) Absolute Neuts (auto) Absolute Nucleated RBC Nucleated RBC % (auto) Smear Tech's Comments PTT (Heparin Protocol) 56.7 D D-Dimer VBG pH VBG pCO2 VBG pO2 VBG HCO3 VBG O2 Saturation VBG Base Excess Sodium Potassium Chloride Carbon Dioxide Anion Gap BUN Creatinine Estim Creat Clear Calc Estimated GFR Random Glucose Calcium Phosphorus Ferritin Total Bilirubin Direct Bilirubin AST ALT Alkaline Phosphatase C-Reactive Protein Total Protein Albumin Procalcitonin SARS-CoV-2 IgG Ab Negative Blood Type A Positive Antibody Screen NEGATIVE 01/23/20 01/23/20 01/23/20 01:17 05:54 05:54 WBC RBC Hgb Hct MCV MCH MCHC RDW Plt Count MPV Immature Gran % (Auto) Neut % (Auto) Lymph % (Auto) [place] % (Auto) Eos % (Auto) Baso % (Auto) Lymph # (Auto) [place] # (Auto) Eos # (Auto) Baso # (Auto) Abs Immat Gran (auto) Absolute Neuts (auto) Absolute Nucleated RBC Nucleated RBC % (auto) Smear Tech's Comments PTT (Heparin Protocol) 59.3 D-Dimer VBG pH 7.29 L VBG pCO2 33 VBG pO2 36 VBG HCO3 16 VBG O2 Saturation 62.1 VBG Base Excess -9.9 Sodium Potassium Chloride Carbon Dioxide Anion Gap BUN Creatinine Estim Creat Clear Calc Estimated GFR Random Glucose Calcium Phosphorus Ferritin Total Bilirubin 0.5 Direct Bilirubin 0.2 AST 37 H ALT 22 Alkaline Phosphatase 201 H D C-Reactive Protein Total Protein 5.6 L Albumin 2.8 L Procalcitonin SARS-CoV-2 IgG Ab Blood Type Antibody Screen 01/23/20 01/23/20 01/23/20 05:54 05:54 05:54 WBC 12.3 H RBC 3.11 L Hgb 8.5 L Hct 26.4 L MCV 84.9 MCH 27.3 MCHC 32.2 RDW 14.6 Plt Count 244 D MPV 10.6 Immature Gran % (Auto) 0.6 H Neut % (Auto) 96.8 H Lymph % (Auto) 0.8 L [place] % (Auto) 1.7 L Eos % (Auto) 0.0 Baso % (Auto) 0.1 Lymph # (Auto) 0.1 L [place] # (Auto) 0.2 Eos # (Auto) 0.0 Baso # (Auto) 0.0 Abs Immat Gran (auto) 0.08 H Absolute Neuts (auto) 11.9 H Absolute Nucleated RBC 0.000 Nucleated RBC % (auto) 0.0 Smear Tech's Comments VERIFIED PTT (Heparin Protocol) D-Dimer 942 VBG pH VBG pCO2 VBG pO2 VBG HCO3 VBG O2 Saturation VBG Base Excess Sodium 137 Potassium 4.0 Chloride 106 Carbon Dioxide 17 L Anion Gap 18 BUN 86 H* Creatinine 3.97 H Estim Creat Clear Calc 15.9 Estimated GFR 12 Random Glucose 115 Calcium 7.3 L Phosphorus 5.9 H Ferritin 3396 H Total Bilirubin Direct Bilirubin AST ALT Alkaline Phosphatase C-Reactive Protein 17.52 H Total Protein Albumin Procalcitonin SARS-CoV-2 IgG Ab Blood Type Antibody Screen 01/23/20 01/23/20 05:54 05:54 WBC RBC Hgb Hct MCV MCH MCHC RDW Plt Count MPV Immature Gran % (Auto) Neut % (Auto) Lymph % (Auto) [place] % (Auto) Eos % (Auto) Baso % (Auto) Lymph # (Auto) [place] # (Auto) Eos # (Auto) Baso # (Auto) Abs Immat Gran (auto) Absolute Neuts (auto) Absolute Nucleated RBC Nucleated RBC % (auto) Smear Tech's Comments PTT (Heparin Protocol) 56.0 D-Dimer VBG pH VBG pCO2 VBG pO2 VBG HCO3 VBG O2 Saturation VBG Base Excess Sodium Potassium Chloride Carbon Dioxide Anion Gap BUN Creatinine Estim Creat Clear Calc Estimated GFR Random Glucose Calcium Phosphorus Ferritin Total Bilirubin Direct Bilirubin AST ALT Alkaline Phosphatase C-Reactive Protein Total Protein Albumin Procalcitonin 12.72 SARS-CoV-2 IgG Ab Blood Type Antibody Screen Microbiology Microbiology Results: Microbiology 01/21/20 14:02 Blood - Venous Blood Culture - Preliminary No growth after 24 hours. 01/21/20 13:55 Blood - Venous Blood Culture - Preliminary No growth after 24 hours. Progress Note: A&P Time Spent With Patient Time: Total time spent is greater than 50% in coordination of care (as documented) at patient's floor/unit and/or counseling patient: Total time spent with greater than 50% in coordination of care (as documented) at patient's floor/unit and/or counseling patient:: 0 Critical Care Time Critical Care Time (minutes): 90
--- NOTE | 2020-01-23 13:04 | PM.DS ---
DS: Providers Provider Date of admission: 01/21/20 19:56 Primary care physician: Angel Vidal MD Consults: 01/22/20 10:19 Consult to Infectious Diseases Routine Consulting Provider: Amanda Jimenez Reason for consultation: Remdesivir COVID Has provider been notified: Yes 01/22/20 11:09 Consult to Infectious Diseases Routine Consulting Provider: Amanda Jimenez Reason for consultation: COVID pneumonia. Has provider been notified: Yes 01/22/20 13:00 Consult to Nephrology Routine Consulting Provider: Kyle Ann Reason for consultation: YESSICA Has provider been notified: Yes DS: Transfer Hospital Acceptance Reason for Transfer: Plasmapharesis Name of Facility: [facility] Accepting Provider: Dr. Montenegro DS: Diagnosis Discharge Diagnosis (1) 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 (2) YESSICA (acute kidney injury): Status: Acute (3) COVID-19: Status: Acute Problem details: She is immunosuppresse with renal disease She has COVID and is now on high flow oxygen,100% with NRB 100% to achieve saturation 90 She will likely have guarded prognosis (4) Acute respiratory failure: Status: Acute DS: Medications Discharge Medications Home Medications: Previous Rx's Medication Instructions Recorded B complex with C 20-folic acid 1 cap PO DAILY 1 Days #1 cap 01/23/20 [[place] Caps] amlodipine 10 mg PO DAILY 1 Days #2 tab 01/23/20 atorvastatin 80 mg PO BEDTIME 1 Days #1 tab 01/23/20 carisoprodol 350 mg PO TID PRN 1 Days tab 01/23/20 cholecalciferol (vitamin D3) 200 mcg PO DAILY 1 Days #8 tab 01/23/20 clonazepam 0.5 mg PO TID PRN 1 Days tab 01/23/20 enoxaparin 30 mg SUBCUT Q24H 1 Days #0.3 ml 01/23/20 famotidine (PF) 20 mg IVPUSH BID 1 Days #4 ml 01/23/20 hydrocodone-homatropine 5 ml PO Q4H PRN 1 Days ml 01/23/20 hydromorphone 0.5 mg IVPUSH Q1H PRN 1 Days ml 01/23/20 ipratropium-albuterol 3 ml INHALATION RQ6H WHILE AWAKE 1 01/23/20 Days ml melatonin 9 mg PO BEDTIME 1 Days #3 tab 01/23/20 methylprednisolone sod suc(PF) 80 mg IVPUSH Q12H 1 Days #2.56 ea 01/23/20 [Solu-Medrol (PF)] ondansetron HCl (PF) 4 mg IVPUSH Q4H PRN 1 Days ml 01/23/20 sodium chloride 0.9 % (flush) [BD 3 ml IVFLUSH QSHIFT 1 Days ml 01/23/20 PosiFlush Normal Saline 0.9] sulfamethoxazole-trimethoprim 1 tab PO TuThSa 1 Days #1 tab 01/23/20 thiamine HCl (vitamin B1) 200 mg IVPUSH BID 1 Days #4 ml 01/23/20 zinc sulfate [Zinc-220] 220 mg PO DAILY 1 Days #1 cap 01/23/20 DS: Summary Hospital Course Hospital Course: The patient is a 54-year-old female with a past medical history of pulmonary fibrosis, recent admission for sepsis secondary to CAP, UTI, and YESSICA- 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 She was discharged on 01/15 on to be getting cyclophosphamide and prednisone 60 mg daily, but she never started on the cyclophosphamide bec of delivery issues. She was COVID-19 PCR negative on 12/23 and 01/06, but chest CT on 01/06 did show infiltrates in the posterior lower lobes bilat, albeit not typical for C19, that was read as ?subpleural cyst formation within the posterior basal segment of the lower lobes bilaterally, could be account development representative of early manifestations of interstitial lung disease?. The patient was BIBA to the ED Jan 20 for worsening productive cough of white sputum with bloody streaks, SOB, chest discomfort, and decreased urination since yesterday. She reported to exposure to COVID-19 from a family member on . Denied fever, chills, nausea/vomiting, dysuria/hematuria. In the ED, initial RR was 24, with Sat low 70?s on room air, 97% on NRBFM. Chest x-ray showed striking diffuse bilateral mid and lower lung patchy opacities suggestive of pneumonia. Labs were notable for normal white count with marked lymphopenia. All COVID biomarkers were significantly elevated. BUN and creatinine were 80/4.2 (was 93/4.1 on discharge on January 15). The patient's saturation deteriorated in the ED and she was put on high-flow nasal cannula. On 100%/60 L high-flow, sat dropped into the 70s. At that point the patient was turned prone and a non-rebreather face mask was added to the high-flow. Her sat bumped up to the low to mid 90s, and she was comfortable and declined intubation. The patient was given solumedrol 125 mg in the ED. The hospitalist service declined the admission so we admitted her to ICU. In the ICU, we started her on the [facility] COVID protocol for severe dz, including solumedrol 80 mg bid and full dose heparinization. (No Ivermectin or doxy). Overnite and yesterday she was fairly comfortable, getting prn Dialudid for WOB. We placed a left IJ triple lumen catheter last night. Yesterday, SpO2 was mostly 88-90% on the HFNC 60L/100% + NRBFM on semi-flush. Last night, Sats were running 76-85%. This morning she?s Sat?ing 77-84% on the HFNC 60L/100% + NRBFM on full flush. She?s breathing easy with RR 21-26, no access musc use, no increased WOB other than that attributable to her resp rate. See Vital Signs below. Mental status is normal, fully alert, oriented, and appropriate. I had a good conversation with her. Heart rate is 100, sinus rhythm. Blood pressure is 158/78. Central venous blood gas this morning shows pH 7.29, pCO2 33, BE -9. Afebrile now. She had low grade temps, max 100.8 overnight last night, the first time she?s had fever. LABORATORY DATA: As below. Notably, white count is bumped to 12.3 this morning (was previously normal), BUN and creatinine steady at 86/3.9 (was 83/4.1 yest), phosphorus is down to 5.9, bicarb is 17, potassium is 4.0, D-dimer is down to 942, ferritin is steady at 3396, CRP is down to 17, procalcitonin is down to 12. CXR shows slight worsening of extensive bilat pneumonia with apical sparing. IMPRESSION: 1. Bilat C19 pneumonia. Not entirely clear to me when she became infected. Likely earlier than (5 days ago). Heartened to see that DDimer, CRP, and PCT are down, but oxygenation is clearly worse over last 24 hrs, as is her CXR. We have her on the complete [facility] COVID protocol (minus ivermectin and doxycycline). Discussed the possibility of plasma exchange with Dr. Ann. He spoke with staff at [facility] and [facility]. [facility] declined but Dr. Montenegro at [facility] accepted the patient. We are arranging transfer. We?ll transport on CPAP. Because of the decrease in her DDimer, I?ve d/c?d her heparin drip, put her on Lovenox ? mg/kg/day 2. Acute hypoxemic respiratory failure, secondary to the above. 3. New fever and leukocytosis. I?ll start her on Doxycycline. 4. Acute kidney injury, diagnosed during a previous hospitalization, as noted above. Discussed at length with Dr. Ann. According to his conversation with the patient, she never took the cyclophosphamide. He recommends continuing with Solu-Medrol 80 mg bid. We d/c?d the vitamin-C. At this point time, there is no indication for tracheal intubation. I do believe this patient?s prognosis is quite grim, however. Plan to transfer to [facility] for plasmapheresis. We've switched her over to CPAP. On CPAP 100%/+15, RR is 25, Vt 500-800 cc. Monitoring: Daily VBG, DDimer, CRP, Ferritin, procalcitonin, and Mg. Critical care time (including sign out to critical care at [facility], further d/w Dr. Ann and w Pharmacyreginald visits to bedside): 75 + min. Please do not hesitate to call here to the ICU for further information. Telephone number [phone]. Time Spent with Patient Time attestation: Total time spent providing and/or coordinating discharge services: Physical Exam Vital Signs: Vital Signs: Last Vital Signs Temp 98.6 F 01/23/20 12:00 Pulse 105 H 01/23/20 12:00 Resp 28 H 01/23/20 12:00 BP 134/65 01/23/20 12:00 Pulse Ox 84 L 01/23/20 12:00 Body Mass Index 23.8 DS: Data Data Completed and Pending Completed studies during hospitalization [Text1]: Procedures Excision of Right Kidney, Percutaneous Approach, Diagnostic (01/07/20) Transfusion of Nonautologous Red Blood Cells into Peripheral Vein, Percutaneous Approach (01/07/20) Labs on day of discharge: 01/21/20 13:25 ECG 12 lead EKG Stat EKG Documentation DIRECTED XR chest 1V Stat 01/21/20 13:43 Piperacillin Sodium/Tazobactam [Zosyn] 2.25 gm 0.9 % Sodium Chloride [Ns] 50 ml IV ONCE 01/21/20 13:45 0.9 % Sodium Chloride [Ns] 500 ml IVCONT 999 mls/hr 01/21/20 13:55 B Type Natriuretic Peptide Stat Basic Metabolic Panel Stat C Reactive Protein Stat Ferritin Stat Lactate Dehydrogenase Stat Liver Panel Stat Magnesium Stat Procalcitonin Stat Troponin-I High Sensitivity Stat 01/21/20 13:56 Complete Blood Count Auto Diff Stat D Dimer Stat Hold Lt Blue - Possible Coag Stat Lactic Acid Stat Partial Thromboplastin Time Stat Prothrombin Time INR Stat SLIDE REVIEW Stat 01/21/20 13:57 Albuterol Sulfate [Ventolin] 4 puff INHALE ONCE ONE 01/21/20 13:59 methylPREDNISolone Sod Succ/PF [SOLU-MedroL] 125 mg IVPUSH ONCE ONE 01/21/20 14:04 SARS-CoV2/FLU/RSV Stat 01/21/20 14:21 Acetaminophen [Tylenol] 650 mg PO ONCE ONE 01/21/20 14:23 Piperacillin Sodium/Tazobactam [Zosyn] 2.25 gm IV .STK-MED ONE 01/21/20 14:25 HYDROcodone/Homat 5/1.5/5 ML [Hydromet 5/1.5/5 ML] 5 ml PO ONCE ONE 01/21/20 14:32 ABG (RT) ONCE 01/21/20 14:45 Arterial Blood Gas Routine 01/21/20 17:07 Add Laboratory Test Stat 01/21/20 17:10 Add Laboratory Test Stat 01/21/20 19:56 Intake and Output Q1HR Vital Signs Q1HR 01/21/20 20:02 Troponin-I High Sensitivity Stat 01/21/20 22:04 Transfer Order Routine 01/22/20 00:32 Morphine Sulfate 2 mg IVPUSH Q2H PRN 01/22/20 00:44 Heparin Sodium,Porcine 5,496 unit IVPUSH BOLUS PRN 01/22/20 00:45 Heparin Sodium,Porcine/1/2NS 25,000 unit in 250 ml IVCONT Per Protocol units/kg/hr 01/22/20 00:49 Magnesium Sulfate/H2O 2 gm in 50 ml IV ONCE 01/22/20 01:00 Thiamine HCL 200 mg 0.9 % Sodium Chloride [Ns] 100 ml IV Q12H methylPREDNISolone Sod Succ/PF [SOLU-MedroL] 80 mg 0.9 % Sodium Chloride [Ns] 100 ml IV Q12H 01/22/20 01:44 Thiamine HCL 200 mg .ROUTE .[facility] ONE methylPREDNISolone Sod Succ/PF [SOLU-MedroL] 125 mg .ROUTE .[facility] ONE 01/22/20 04:34 Add Laboratory Test Urgent 01/22/20 05:37 Basic Metabolic Panel Routine C Reactive Protein Routine Complete Blood Count Auto Diff Routine D Dimer Routine Ferritin Routine Magnesium Routine Phosphorus Routine Procalcitonin Routine SLIDE REVIEW Routine Venous Blood Gas Routine 01/22/20 06:53 OBSX1 Stat 01/22/20 08:57 HYDROmorphone HCl [Dilaudid] 0.5 mg .ROUTE .[facility] ONE 01/22/20 09:00 Ascorbic Acid [Vitamin C] 1,000 mg PO BID Famotidine/PF [Pepcid/PF] 20 mg IVPUSH DAILY 01/22/20 09:58 ondansetron HCL [Zofran] 4 mg .ROUTE .[facility] ONE 01/22/20 11:07 Convalescent Covid Plasma Stat Type and Screen Stat Liver Panel Stat PTT Heparin Drip Stat SARS COV2 IgG Routine 01/22/20 19:38 PTT Heparin Drip Stat 01/22/20 20:36 XR chest 1V Stat 01/23/20 XR chest 1V Stat 01/23/20 01:17 PTT Heparin Drip Stat 01/23/20 05:54 Basic Metabolic Panel Routine C Reactive Protein Routine Complete Blood Count Auto Diff Routine D Dimer Routine Ferritin Routine Liver Panel Routine PTT Heparin Drip Stat Phosphorus Routine Procalcitonin Routine SLIDE REVIEW Routine Venous Blood Gas Routine Laboratory Last Values WBC 12.3 X10*3/uL (4.8-10.8) H 01/23/20 05:54 RBC 3.11 X10*6/uL (4.20-5.50) L 01/23/20 05:54 Hgb 8.5 g/dl (12.0-16.0) L 01/23/20 05:54 Hct 26.4 % (37-47) L 01/23/20 05:54 MCV 84.9 fL (80-98) 01/23/20 05:54 MCH 27.3 pg (27.0-33.0) 01/23/20 05:54 MCHC 32.2 g/dl (31.0-35.0) 01/23/20 05:54 RDW 14.6 % (11.0-16.0) 01/23/20 05:54 Plt Count 244 X10*3/uL (160-400) D 01/23/20 05:54 MPV 10.6 fL (9.4-12.3) 01/23/20 05:54 Immature Gran % (Auto) 0.6 % (0.0-0.4) H 01/23/20 05:54 Neut % (Auto) 96.8 % (45-73) H 01/23/20 05:54 Lymph % (Auto) 0.8 % (20-40) L 01/23/20 05:54 [place] % (Auto) 1.7 % (2-11) L 01/23/20 05:54 Eos % (Auto) 0.0 % (0-4) 01/23/20 05:54 Baso % (Auto) 0.1 % (0-2) 01/23/20 05:54 Lymph # (Auto) 0.1 X10*3/uL (1.2-4.9) L 01/23/20 05:54 [place] # (Auto) 0.2 X10*3/uL (0.1-1.2) 01/23/20 05:54 Eos # (Auto) 0.0 X10*3/uL (0.0-0.4) 01/23/20 05:54 Baso # (Auto) 0.0 X10*3/uL (0.0-0.2) 01/23/20 05:54 Abs Immat Gran (auto) 0.08 X10*3/uL (0.00-0.03) H 01/23/20 05:54 Absolute Neuts (auto) 11.9 X10*3/uL (2.0-8.3) H 01/23/20 05:54 Absolute Nucleated RBC 0.000 X10*3/uL (0.0-0.012) 01/23/20 05:54 Nucleated RBC % (auto) 0.0 /100WBC (0.0-0.2) 01/23/20 05:54 Smear Tech's Comments VERIFIED 01/23/20 05:54 PT 12.6 SEC (10.8-13.0) 01/21/20 13:56 INR 1.1 (0.9-1.1) 01/21/20 13:56 APTT 33.1 SEC (24.1-38.0) 01/21/20 13:56 PTT (Heparin Protocol) 56.0 SEC (53-77.9) 01/23/20 05:54 D-Dimer 942 NG/ML 01/23/20 05:54 Hold Blue Top SEE NOTE 01/21/20 13:56 ABG pH 7.31 (7.35-7.45) L 01/21/20 14:45 ABG pCO2 32 mmhg (32-45) 01/21/20 14:45 ABG pO2 66 mmhg (83-108) L 01/21/20 14:45 ABG HCO3 16 mmol/l (22-26) L 01/21/20 14:45 ABG O2 Saturation 90.4 % 01/21/20 14:45 ABG Base Excess -9.6 01/21/20 14:45 VBG pH 7.29 (7.32-7.43) L 01/23/20 05:54 VBG pCO2 33 mmhg 01/23/20 05:54 VBG pO2 36 mmhg 01/23/20 05:54 VBG HCO3 16 mmol/L 01/23/20 05:54 VBG O2 Saturation 62.1 % 01/23/20 05:54 VBG Base Excess -9.9 mmol/L 01/23/20 05:54 Oxygen Given 100% 01/21/20 14:45 Sodium 137 mmol/L (135-145) 01/23/20 05:54 Potassium 4.0 mmol/l (3.3-5.1) 01/23/20 05:54 Chloride 106 mmol/L (96-108) 01/23/20 05:54 Carbon Dioxide 17 mmol/L (22-29) L 01/23/20 05:54 Anion Gap 18 (12-20) 01/23/20 05:54 BUN 86 mg/dL (9-16) H* 01/23/20 05:54 Creatinine 3.97 mg/dL (0.5-1.4) H 01/23/20 05:54 Estim Creat Clear Calc 15.9 01/23/20 05:54 Estimated GFR 12 01/23/20 05:54 Random Glucose 115 mg/dL (60-115) 01/23/20 05:54 Lactic Acid 1.0 mmol/L (0.5-2.0) 01/21/20 13:56 Calcium 7.3 mg/dL (8.4-10.2) L 01/23/20 05:54 Phosphorus 5.9 mg/dL (2.7-4.5) H 01/23/20 05:54 Magnesium 2.7 mg/dL (1.6-2.6) H 01/22/20 05:37 Ferritin 3396 ng/mL (10-250) H 01/23/20 05:54 Total Bilirubin 0.5 mg/dL (0.0-1.0) 01/23/20 05:54 Direct Bilirubin 0.2 mg/dL (0.0-0.5) 01/23/20 05:54 AST 37 U/L (5-31) H 01/23/20 05:54 ALT 22 U/L (0-31) 01/23/20 05:54 Alkaline Phosphatase 201 U/L (39-117) H D 01/23/20 05:54 Lactate Dehydrogenase 709 U/L (122-220) H 01/21/20 13:55 Troponin I High Sens 118.5 ng/L (<3.5-17.0) H 01/21/20 20:02 C-Reactive Protein 17.52 mg/dL (< or = 0.50) H 01/23/20 05:54 B-Natriuretic Peptide 572 pg/mL (<100) H 01/21/20 13:55 Total Protein 5.6 g/dL (6.5-8.0) L 01/23/20 05:54 Albumin 2.8 g/dL (3.5-5.0) L 01/23/20 05:54 Procalcitonin 12.72 ng/mL 01/23/20 05:54 Urine Color YELLOW 01/22/20 00:29 Urine Appearance CLEAR 01/22/20 00:29 Urine pH 6.0 (5.0-8.0) 01/22/20 00:29 Ur Specific [place] 1.025 (1.005-1.025) 01/22/20 00:29 Urine Protein 2+ MG/DL (NEG-TRACE) H 01/22/20 00:29 Urine Glucose (UA) NEG MG/DL (NEG) 01/22/20 00:29 Urine Ketones NEG MG/DL (NEG) 01/22/20 00:29 Urine Blood 3+ (NEG) H 01/22/20 00:29 Urine Nitrite NEG (NEG) 01/22/20 00:29 Ur Leukocyte Esterase NEG (NEG) 01/22/20 00:29 Urine RBC 10-14 /HPF (0) H 01/22/20 00:29 Urine WBC 0-2 /HPF (0-4) 01/22/20 00:29 Ur Squamous Epith Cells TRACE /LPF 01/22/20 00:29 Urine Bacteria TRACE /LPF 01/22/20 00:29 Epithelial Casts 1-4 /LPF 01/22/20 00:29 Granular Casts 5-9 /LPF 01/22/20 00:29 Waxy Casts 0-2 /LPF 01/22/20 00:29 Urine Yeast 1+ /HPF 01/22/20 00:29 Stool Occult Blood NEG (NEG) 01/22/20 06:53 Coronavirus (PCR) POSITIVE (Negative) A 01/21/20 14:04 Influenza Type A (PCR) NEGATIVE (Negative) 01/21/20 14:04 Influenza Type B (PCR) NEGATIVE (Negative) 01/21/20 14:04 RSV RNA Qual (PCR) NEGATIVE (Negative) 01/21/20 14:04 SARS-CoV-2 IgG Ab Negative (Negative) 01/22/20 11:07 Blood Type A Positive 01/22/20 11:07 Antibody Screen NEGATIVE 01/22/20 11:07 Preliminary micro results at discharge 01/21/20 14:02 Blood Culture - Preliminary Blood - Venous No growth after 24 hours. 01/21/20 13:55 Blood Culture - Preliminary Blood - Venous No growth after 24 hours. Discharge Plan Discharge Patient Disposition: [facility] Referrals: Angel Vidal MD [Primary Care Provider] - Discharge Medications: New carisoprodol 350 mg Tablet 350 mg PO TID PRN (Reason: muscle pain) 1 Days RF: 0 atorvastatin 80 mg Tablet 80 mg PO BEDTIME 1 Days Qty: 1 RF: 0 ipratropium-albuterol 0.5 mg-3 mg(2.5 mg base)/3 mL Solution For Nebulization 3 ml inhalation RQ6H WHILE AWAKE 1 Days RF: 0 clonazepam 0.5 mg Tablet 0.5 mg PO TID PRN (Reason: Anxiety/Restlessness) 1 Days RF: 0 amlodipine 5 mg Tablet 10 mg PO DAILY 1 Days Qty: 2 RF: 0 sulfamethoxazole-trimethoprim 800-160 mg Tablet 1 tab PO TuThSa 1 Days Qty: 1 RF: 0 enoxaparin 30 mg/0.3 mL Syringe 30 mg subcut Q24H 1 Days Qty: 0.3 RF: 0 hydromorphone 0.5 mg/0.5 mL Syringe 0.5 mg IVPUSH Q1H PRN (Reason: WOB or pain) 1 Days RF: 0 sodium chloride 0.9 % (flush) [BD PosiFlush Normal Saline 0.9] Syringe 3 ml IVFLUSH QSHIFT 1 Days RF: 0 zinc sulfate [Zinc-220] 220 (50) mg Capsule 220 mg PO DAILY 1 Days Qty: 1 RF: 0 ondansetron HCl (PF) 4 mg/2 mL Solution 4 mg IVPUSH Q4H PRN (Reason: nausea/vomiting) 1 Days RF: 0 famotidine (PF) 20 mg/2 mL Solution 20 mg IVPUSH BID 1 Days Qty: 4 RF: 0 melatonin 3 mg Tablet 9 mg PO BEDTIME 1 Days Qty: 3 RF: 0 thiamine HCl (vitamin B1) 100 mg/mL Solution 200 mg IVPUSH BID 1 Days Qty: 4 RF: 0 [place] Caps 1 mg Capsule 1 cap PO DAILY 1 Days Qty: 1 RF: 0 cholecalciferol (vitamin D3) 25 mcg (1,000 unit) Tablet 200 mcg PO DAILY 1 Days Qty: 8 RF: 0 Solu-Medrol (PF) 125 mg/2 mL Recon Soln 80 mg IVPUSH Q12H 1 Days Qty: 2.56 RF: 0 hydrocodone-homatropine 5-1.5 mg/5 mL (5 mL) Syrup 5 ml PO Q4H PRN (Reason: Cough) 1 Days RF: 0 Discontinued carisoprodol 350 mg tablet 350 mg PO TID PRN (Reason: muscle pain) 30 Days Qty: 90 RF: 0 sulfamethoxazole-trimethoprim 400-80 mg Tablet 1 tab PO MOWEFR@0900 Qty: 36 RF: 0 prednisone 20 mg Tablet 60 mg PO DAILY Qty: 90 RF: 0 amlodipine 5 mg Tablet 10 mg PO DAILY Qty: 30 RF: 0 omeprazole 20 mg Capsule,Delayed Release(Dr/Ec) 20 mg PO DAILY@0630 Qty: 30 RF: 0 calcium carbonate [Calcium 500] 500 mg calcium (1,250 mg) tablet 500 mg PO BID Qty: 90 RF: 0 cyclophosphamide 50 mg capsule 150 mg PO DAILY Qty: 90 RF: 0 oxycodone 5 mg Tablet 5 mg PO Q6H PRN (Reason: severe pain) Qty: 24 RF: 0 labetalol 100 mg Tablet 100 mg PO BID Qty: 60 RF: 0 vunrqqfqhd-lxngaindyfwyz-dbtj 50-325-40 mg capsule 1 cap PO TID RF: 0 fluticasone propionate 50 mcg/actuation spray,suspension 1 spray intranasal BID RF: 0 albuterol sulfate 90 mcg/actuation HFA aerosol inhaler 2 puff inhalation Q6H PRN (Reason: Wheezing) RF: 0 Discharge Orders: Discharge Order (Routine); Ordered 01/23/20 Ordered By: Mayco Swanson Activity on Discharge: As tolerated Visit Report Forms: Patient Portal Discharge page Care Plan Goals: Treatment plan Health Concerns: as above Plan of Treatment: acute care transfer
--- NOTE | 2020-01-23 13:09 | PC.NURSE ---
Pt on high flow and nonrebreather this am upon shift change, pt o2 sats in low 80's MD aware, heparin drip D/C'd plan to start lovenox, pt receiving PRN dilaudid for WOB and pain, Soma given for back spasms, PRN cough syrup for cough, pt recieved zofran in morning for nausea after PO meds, Resp at bedside to switch pt to CPAP settings are 15 and 100%, pt tolerating CPAP well- current o2 sat 94%, plan to transfer pt to [place] for plasmapheresis per MD, pt aware, TLC remains intact to [facility], dressing reinforced, will cont to monitor and await transfer
[2020-01-23] MEDS: Enoxaparin Sodium 30 MG/0.3 ML SYRINGE SUBCUT (13:48)
--- NOTE | 2020-01-23 15:46 | PC.NURSE ---
Patient transported to [place] with [facility]. PRN dilaudid given prior to transport. RT at bedside to switch patient over to [facility]. Report given to [facility] and [facility]. Patient updated family and did not want nursing to update further.
--- NOTE | 2020-01-23 18:13 | P.PNNP_ITS ---
Subjective Subjective Date of Service: 01/23/20 Interval history: Seen and examined. Events noted [facility] D/W ICU ( Dr Swanson ) and multiple calls to several referral centers and now [facility] in [place] has kindly found a bed for her..xfer today for possible Pheresis at [facility] as add on [place] Physical Exam Vital Signs: Vital Signs: Last Vital Signs Temp 99 F 01/23/20 15:00 Pulse 99 01/23/20 15:00 Resp 36 H 01/23/20 15:36 BP 116/74 01/23/20 15:00 Pulse Ox 95 01/23/20 15:00 Body Mass Index 23.8 Const: General: cooperative Orientation/consciousness: oriented to person, oriented to place, oriented to time and patient oriented x3 Limitations: no limitations HENMT: Head: Yes normal to inspection Ears: hearing grossly normal bilaterally General nose exam: Normal external nose present Face and sinus: Yes normal facial exam Mouth: Normal oral and palatal mucosa present Eyes: General: appearance normal, both eyes and all related structures EOM: EOMs intact bilaterally Neck: Neck: Yes normal visual inspection Resp: Effort & Inspection: normal respiratory effort Auscultation: rhonchi throughout, diminished lung sounds and bronchovesicular breath sounds Cardio: Rate: regular rate Rhythm: regular rhythm Heart sounds: S1 normal heart sound present and S2 normal heart sound present GI: Inspection: Yes normal to inspection Palpation (GI): Soft to palpation, nontender, no guarding and not rigid : General: Yes no CVA tenderness Back/Spine/Pelvis: Back: no CVA tenderness Skin: General skin exam: no rashes or lesions noted Rashes: no rashes Wounds: no wounds Neuro: General: oriented to person, oriented to place, oriented to time and patient oriented x3 Gait exam (Neuro): Normal gait present Extrem: Other: Mild bilateral LE edema General: Yes normal to inspection and Yes full ROM Assessment & Plan Assessment and plan (1) 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 Assessment and Plan: 1. YESSICA: c/w ANCA Vacultiis based on kidney Bx and anti MPO, slt improvement with pulse steroids but without additional IS drugs ( cytoxan or Rituxin) the renal outcome is exceedingly poor; (in 06/2019 SCr was 1.0) 2. Severe Resp Failure: clinical presnetation most c/w COVID Lung although if infectioin occurred on then time course is relatively rapid for COIV lung..it raises ques if she could have been infective prior to dc from hosp ( 01/15) or is it possible that her resp failure is due in part or even predominatly to other causes such as ANCA pulm vasculitis PCP 3. NAGMA 4. Vol status: looks ok presently Disc: overall prognosis is poor given severit of lung injury and reanl failure; after d/w ICU ( Dr Swanson) we both felt that Plasmapheresis should be considered if possible as it could potential help the COVID lung and pulm vasculitis if this was indeed present. There are anecdotal reports of using pheresis insevere COIVD lung injury. We have contacted [facility] but they will not accept the PT as they can not provide Pheresis ..nor can [facility] or [facility] PLAN: cont full supportive care as per ICU; no indication for HD at htis time; cont steroids as noted; no cytoxan; xferto [facility] [employer] and anticiapte she will get i a trial of pheresis; pulmconsilt; send sputum for PCP and consider treatng for PCP vs prophylaxis against PCP Will follow fawad with ICU (2) YESSICA (acute kidney injury): Status: Acute (3) COVID-19: Problem details: She is immunosuppresse with renal disease She has COVID and is now on high flow oxygen,100% with NRB 100% to achieve saturation 90 She will likely have guarded prognosis Status: Acute Time Spent With Patient Time: Total time spent is greater than 50% in coordination of care (as documented) at patient's floor/unit and/or counseling patient:
[2020-01-25 12:53] LABS: Myeloperoxidase Antibody <1.0 AI; Proteinase 3 PR3 Antibodies <1.0 AI
== END 2020-01-23 16:00 | disposition short-term general hospital (02) | DRG 137 ==
LOC: HO.ED 20:44 → HO.ICU 01-22
PROVIDERS: Internal Medicine Nephrology; Physician Assistant; Physician Assistant Medical; Admitting Provider Anesthesiology; Emergency Provider Internal Medicine; PCP Internal Medicine; Visit Provider Anesthesiology
DX: U07.1 COVID-19 (principal); J96.01 Acute respiratory failure with hypoxia; N17.9 Acute kidney failure, unspecified; N01.9 Rapidly progressive nephritic syndrome with unspecified morphologic changes; J12.89 Other viral pneumonia; E87.2 Acidosis; E03.9 Hypothyroidism, unspecified; Z88.5 Allergy status to narcotic agent; Z79.899 Other long term (current) drug therapy
CPT/HCPCS: 0241U; 36415; 71045; 80048; 80076; 81001; 81003; 82272; 82728; 82803; 83605; 83615; 83735; 83880; 84100; 84145; 84484; 85025; 85379; 85610; 85730; 86021; 86140; 86769; 86850; 86900; 86901; 87040; 93005; 94640; 94660; 94799; 96365; 96375; 99285; J1170; J1650; J2270; J2405; J2543; J2930; J3411; J3475